=== PATIENT | female | born 1940 | race Asian ===

== ENCOUNTER 2025-04-16 08:30 | Emergency (ER) | payer MEDICARE, OTHER ==
[~2025-04-16] VITALS: Ht 149.9 cm; Wt 36.9 kg
--- NOTE | 2025-04-16 08:50 | ED.PDOC ---
History of Present Illness(SKN HPI Comments A 84 YEAR OLD FEMALE PRESENTS TO THE ED WITH COMPLAINT OF INSECT BITE OF RIGHT FOOT. PATIENT STATES SHE WAS IN HER YARD 1 WEEK AGO AND SHE WAS BITTEN BY AN INSECT ON HER RIGHT FOOT. PATIENT REPORTS SHE IS NOW EXPERIENCING INCREASED PAIN, REDNESS, AND MILD SWELLING TO HER RIGHT FOOT. PATIENT DENIES FEVER, C HILLS, SHORTNESS OF BREATH, CHEST PAIN, ABDOMINAL PAIN, NAUSEA, VOMITING, HEADACHE, OR OTHER COMPLAINTS. NO OTHER SYMPTOMS OR MODIFYING FACTORS AT THIS TIME. PATIENT IS ALERT, ORIENTED X 4, AND HAS STEADY GAIT. Chief Complaint: Wound Check Time Seen by MD: 08:34 History of Present Illness: Nurses Notes, Medications, Allergies Allergies: Coded Allergies: NO KNOWN ALLERGIES (Unverified , 04/16/25) Home Meds Active Scripts Cephalexin Monohydrate (Cephalexin) 500 Mg Cap, 1 CAP PO TID, #21 CAP Prov:MENDY BURGOS 04/16/25 Information Source: Patient Mode of Arrival: Ambulatory Severity: Moderate Timing: Days Duration: Since onset, Days Prehospital treatment: None Location: Foot (RIGHT FOOT) Mechanism: Insect Occurence: Outdoors Object: None Condition of Object: None Retained Foreign Body: No Wound Type: Other (INSECT BITE) Immunization Status of Animal: NA Tetanus: Unknown History of: None Associated Signs and Symptoms: Redness, Swelling, Pain Past Medical History PAST MEDICAL HISTORY: Denies Surgical History: Denies all surgeries RESPIRATORY TECH History: No Pertinent RESPIRATORY TECH History Family History Family History: Reviewed,noncontributory to illness Social History Smoker: Non-Smoker Alcohol: Denies ETOH Use Drugs: Denies Drug Use Lives In: Home Constitutional: denies: chills, diaphoresis, fatigue, fever, malaise, sweats, weakness, others EENTM: denies: blurred vision, double vision, ear bleeding, ear discharge, ear drainage, ear pain, ear ringing, eye pain, eye redness, hearing loss, mouth pain, mouth swelling, nasal discharge, nose bleeding, nose congestion, nose pain, photophobia, tearing, throat pain, throat swelling, voice changes, others Respiratory: denies: cough, hemoptysis, orthopnea, SOB at rest, shortness of breath, SOB with excertion, stridor, wheezing, others Cardiovascular: denies: chest pain, dizzy spells, diaphoresis, Dyspnea on exertion, edema, irregular heart beat, left arm pain, lightheadedness, palpitations, PND, syncope, others Gastrointestinal: denies: abdomen distended, abdominal pain, blood streaked bowels, constipated, diarrhea, dysphagia, difficulty swallowing, hematemesis, melena, nausea, poor appetite, poor fluid intake, rectal bleeding, rectal pain, vomiting, others Genitourinary: denies: abnormal vagina bleeding, burning, dyspareunia, dysuria, flank pain, frequency, hematuria, incontinence, pain, , vagina discharge, urgency, others Neurological: denies: dizziness, fainting, headache, left sided numbness, left sided weakness, numbness, paresthesia, pre-existing deficit, right sided numbness, right sided weakness, seizure, speech problems, tingling, tremors, weakness, others Musculoskeletal: denies: back pain, gout, joint pain, joint swelling, muscle pain, muscle stiffness, neck pain, others Integumetry: reports: lesions, wounds, others (INSECT BITE OF RIGHT FOOT); denies: bruises, change in color, change in hair/nails, dryness, laceration, lumps, rash Allergic/Immunocompromised: denies: Difficulty Healing, Frequent Infections, Hives, Itching, others Hematologic/Lymphatic: denies: anemia, blood clots, easy bleeding, easy bruising, swollen glands, others Endocrine: denies: excessive hunger, excessive sweating, excessive thirst, excessive urination, flushing, intolerance to cold, intolerance to heat, unexplained weight gain, unexplained weight loss, others Psychiatric: denies: anxiety, bipolar disorder, depression, hopeless, panic disorder, schizophrenia, sleepless, suicidal, others All Other Systems: Reviewed and Negative Physical Exam General Appearance: No Apparent Distress, Normal HEENT: Normal ENT Inspection, PERRL/EOMI, Pharynx Normal, TMs Normal Neck: Full Range of Motion, Non-Tender, Normal, Normal Inspection Respiratory: Chest Non-Tender, Lungs Clear, No Accessory Muscle Use, No Respiratory Distress, Normal Breath Sounds Cardiovascular: No Edema, No JVD, No Murmur, No Gallop, Normal Peripheral Pulses, Regular Rate/Rhythm Breast Exam: Deferred Gastrointestinal: No Organomegaly, Non Tender, No Pulsatile Mass, Normal Bowel Sounds, Soft Genitalia: Deferred Pelvic: Deferred Rectal: Deferred Extremities: No calf tenderness, Normal capillary refill, Normal range of motion, No pedal edema, Tender (WITH A BLISTER ON RIGHT INNER LOWER LEG, NO PUS DRAINAGE. ) Musculoskeletal : Apperance: Normal Neurologic: Alert, gun number II-XII nml as Tested, No Motor Deficits, Normal Affect, Normal Mood, No Sensory Deficits Cerebellar Function: Normal Reflexes: Normal Skin: Dry, Warm, Wounds (A BLISTER WOUND WITH LOCALIZED REDNESS AND TENDERNESS ON RIGHT INNER LOWER LEG, NO PUS DRAINAGE. ) Peripheral Pulses: 2+ carotid (R), 2+ carotid (L), 2+ dorsalis pedis (R), 2+ dorsalis pedis (L) Lymphatic: No Adenopathy Was a procedure done? Was a procedure done?: No Differential Diagnosis (INTG) Differential Diagnosis: Abrasion, Cellulitis, Contusion, Insect Envenomation, Puncture Wound Differential Diagnosis: N/A Differential Diagnosis: N/A Abscess: N/A Differential Diagnosis: N/A X-Ray, Labs, Meds, VS Vital Signs Date Time Temp Pulse Resp B/P (MAP) Pulse Ox O2 Delivery O2 Flow Rate FiO2 04/16/25 08:32 98.8 90 18 98 98.8 X-Ray, Labs, Meds, VS Comment EXTERNAL MEDICAL RECORDS REVIEWED: [NONE] INDEPENDENT HISTORIANS: [NONE] SOCIAL DETERMINANTS OF HEALTH: [NONE] LABS ORDERED: NONE REVIEWED AND INTERPRETED RESULTS: NONE IMAGING ORDERED: NONE TREATMENTS ORDERED: SKIN FROM PATIENT'S BLISTER ON HER RIGHT FOOT WAS REMOVED AND THEN THE WOUND WAS CLEANED USING NORMAL SALINE AND WRAPPED WITH STERILE GAUZE. PATIENT TOLERATED WELL. PROCEDURES PERFORMED: NONE CRITICAL CARE TIME: NONE I HAVE DISCUSSED THE PATIENT WITH THE ATTENDING PHYSICIAN DR. ARANA AND HE AGREES WITH THE PATIENT'S PLAN OF CARE AND DISPOSITION. BASED ON HISTORY OF PRESENT ILLNESS, AND PHYSICAL EXAM, PATIENT WILL BE DISCHARGED HOME. DISCUSSED PLAN FOR DISCHARGE HOME WITH RX [KEFLEX]. MEDICATION WARNINGS GIVEN. SHARED DECISION MAKING: DISCUSSED WITH PATIENT THAT THEIR WORKUP WAS NORMAL. PATIENT INSTRUCTED TO FOLLOW UP WITH PRIMARY CARE PROVIDER IN 1-2 DAYS FOR RE- EVALUATION OF SYMPTOMS. PATIENT VERBALIZES UNDERSTANDING TO RETURN TO ED FOR NEW OR WORSENING SYMPTOMS OR IF FOLLOW UP WITH PCP CANNOT BE OBTAINED. PATIENT FEELS COMFORTABLE GOING HOME AT THIS TIME. ALL QUESTIONS ADDRESSED AT TIME OF DISCHARGE. Time of 1ST Reevaluation: 09:10 Reevaluation 1ST: Improved Patient Education/Counseling: Diagnosis, Treatment, Need For Follow Up Family Education/Counseling: Diagnosis, Treatment, Need For Follow Up Medical Screening: No EMC Exist At This Time SEPSIS Sepsis Screen Date sepsis recognized/suspect: Apr 16, 2025 Time Sepsis recognized/suspect: 0835 Recent Procedure: No On Antibiotic Therapy: No Respiratory Rate >20: No Heart Rate >90: No Temp<36 C (96.8 F) or >38.3 C: No SBP <90 or MAP <65 mmHG: No New Acute Mental Status Change: No Is the patient on CPAP, BIPAP,: No Vital Signs Date Time Temp Pulse Resp B/P (MAP) Pulse Ox O2 Delivery O2 Flow Rate FiO2 04/16/25 08:32 98.8 90 18 98 98.8 Departure 1 Departure Time of Disposition: 09:10 Impression: Primary Impression: Insect bite (nonvenomous), right foot, initial encounter Disposition: HOME / SELF CARE / HOMELESS Condition: Stable Additional Instructions: FOLLOW-UP WITH PCP IN 1 TO 2 DAYS. TAKE MEDICATIONS PRESCRIBED. RETURN TO ED FOR ANY NEW OR WORSENING SYMPTOMS. e-Prescriptions Cephalexin Monohydrate (Cephalexin) 500 Mg Cap 1 CAP PO TID, #21 CAP Prov: MENDY BURGOS 04/16/25 Discharged With: Self Critical Care Note Critical Care Time?: No Stability Stability form required: No I personally scribed for MENDY BURGOS ([email or web address]) on 04/16/25 at 08:50. Electronically submitted by Arjun Holloway ([email or web address]). MENDY BURGOS Apr 16, 2025 08:50
[2025-04-16] MEDS ORDERED: CEPH500C PO (08:54)
[2025-04-16 09:01] VITALS: BP 178/75; PULSE 90; RESP 18; TEMP 98.8; O2SAT 98
== END 2025-04-16 09:04 | disposition home or self-care (01) ==
LOC: ER 08:30
DX: S90.861A Insect bite (nonvenomous), right foot, initial encounter (principal); W57.XXXA Bitten or stung by nonvenomous insect and other nonvenomous arthropods, initial encounter; Y93.89 Activity, other specified; Y92.89 Other specified places as the place of occurrence of the external cause; Y99.8 Other external cause status

== ENCOUNTER 2025-07-18 14:29 | Emergency (ER) | payer MEDICARE, OTHER ==
[~2025-07-18] VITALS: Ht 154.9 cm; Wt 68.0 kg
[~2025-07-18 14:29] MED LIST: CEPH500C PO
--- NOTE | 2025-07-18 16:15 | ED.PDOC ---
History of Present Illness HPI Comments 84 y/o M, CLAIR, presents to the ED for CC of flu-like symptoms. Patient states, she has been experiencing reoccurring flu-like symptoms including nasal congestion, sore-throat, and cough x1week. Patient reports, cough to be productive in nature. Patient denies fever, chills, nausea, or vomiting. No other symptoms or modifying factors are present at this time. Chief Complaint: Flu like Time Seen by MD: 16:00 Reviewed Notes: Nurses Notes, Medications, Allergies Allergies: Coded Allergies: NO KNOWN ALLERGIES (Unverified , 04/16/25) Home Meds Active Scripts Cephalexin Monohydrate (Cephalexin) 500 Mg Cap, 1 CAP PO TID, #21 CAP Prov:MENDY BURGOS 04/16/25 Information Source: Patient, Emergency Med Personnel Mode of Arrival: EMS Severity: Moderate Timing: Weeks Duration: Since onset Prehospital treatment: None Past Medical History PAST MEDICAL HISTORY: Denies Surgical History: Denies all surgeries HORSEBACK RIDING INSTRUCTOR History: No Pertinent HORSEBACK RIDING INSTRUCTOR History Family History Family History: Reviewed,noncontributory to illness Social History Smoker: Non-Smoker Alcohol: Denies ETOH Use Drugs: Denies Drug Use Lives In: Home Constitutional: denies: chills, diaphoresis, fatigue, fever, malaise, sweats, weakness, others EENTM: reports: nose congestion, throat pain; denies: blurred vision, double vision, ear bleeding, ear discharge, ear drainage, ear pain, ear ringing, eye pain, eye redness, hearing loss, mouth pain, mouth swelling, nasal discharge, nose bleeding, nose pain, photophobia, tearing, throat swelling, voice changes, others Respiratory: reports: cough; denies: hemoptysis, orthopnea, SOB at rest, shortness of breath, SOB with excertion, stridor, wheezing, others Cardiovascular: denies: chest pain, dizzy spells, diaphoresis, Dyspnea on exertion, edema, irregular heart beat, left arm pain, lightheadedness, palpitations, PND, syncope, others Gastrointestinal: denies: abdomen distended, abdominal pain, blood streaked bowels, constipated, diarrhea, dysphagia, difficulty swallowing, hematemesis, melena, nausea, poor appetite, poor fluid intake, rectal bleeding, rectal pain, vomiting, others Genitourinary: denies: abnormal vagina bleeding, burning, dyspareunia, dysuria, flank pain, frequency, hematuria, incontinence, pain, , vagina discharge, urgency, others Neurological: denies: dizziness, fainting, headache, left sided numbness, left sided weakness, numbness, paresthesia, pre-existing deficit, right sided numbness, right sided weakness, seizure, speech problems, tingling, tremors, weakness, others Musculoskeletal: denies: back pain, gout, joint pain, joint swelling, muscle pain, muscle stiffness, neck pain, others Integumetry: denies: bruises, change in color, change in hair/nails, dryness, laceration, lesions, lumps, rash, wounds, others Allergic/Immunocompromised: denies: Difficulty Healing, Frequent Infections, Hives, Itching, others Hematologic/Lymphatic: denies: anemia, blood clots, easy bleeding, easy bruising, swollen glands, others Endocrine: denies: excessive hunger, excessive sweating, excessive thirst, excessive urination, flushing, intolerance to cold, intolerance to heat, unexplained weight gain, unexplained weight loss, others Psychiatric: denies: anxiety, bipolar disorder, depression, hopeless, panic disorder, schizophrenia, sleepless, suicidal, others All Other Systems: Reviewed and Negative Physical Exam General Appearance: Moderate Distress HEENT: Normal ENT Inspection, Pharynx Normal, TMs Normal Neck: Full Range of Motion, Non-Tender, Normal, Normal Inspection Respiratory: Chest Non-Tender, Lungs Clear, No Accessory Muscle Use, No Respiratory Distress, Normal Breath Sounds Cardiovascular: No Edema, No JVD, No Murmur, No Gallop, Normal Peripheral Pulses, Regular Rate/Rhythm Breast Exam: Deferred Gastrointestinal: No Organomegaly, Non Tender, No Pulsatile Mass, Normal Bowel Sounds, Soft Genitalia: Deferred Pelvic: Deferred Rectal: Deferred Extremities: No calf tenderness, Normal capillary refill, Normal inspection, Normal range of motion, Non-tender, No pedal edema Musculoskeletal : Apperance: Normal Neurologic: Alert, mill operator helper II-XII nml as Tested, No Motor Deficits, Normal Affect, Normal Mood, No Sensory Deficits Cerebellar Function: NOT DONE Reflexes: NOT DONE Skin: Dry, Normal Color, Warm Peripheral Pulses: 3+ Radial (R), 3+ Radial (L) Lymphatic: No Adenopathy Was a procedure done? Was a procedure done?: No Differential Dx Considerations may include: URI, VIRAL SYNDROME, COVID-19, PNEUMONIA X-Ray, Labs, Meds, VS Vital Signs Date Time Temp Pulse Resp B/P (MAP) Pulse Ox O2 Delivery O2 Flow Rate FiO2 07/18/25 14:29 97.4 85 15 160/89 100 97.4 Lab Test 07/18/25 16:23 Range/Units White Blood Count 17.7 H 4.4-10.8 10^3/uL Red Blood Count 4.39 4.0-5.20 10^6/uL Hemoglobin 13.8 12.2-16.2 g/dL Hematocrit 43.4 36.0-46.0 % Mean Corpuscular Volume 98.7 80.0-100.0 fL Mean Corpuscular Hemoglobin 31.4 28.0-32.0 pg Mean Corpuscular Hemoglobin Concent 31.8 L 32.0-36.0 g/dL Red Cell Distribution Width 15.3 H 11.8-14.3 % Platelet Count 296 140-450 10^3/uL Mean Platelet Volume 7.4 6.9-10.8 fL Neutrophils (%) (Auto) 38.0 37.0-80.0 % Lymphocytes (%) (Auto) 7.2 L 10.0-50.0 % Monocytes (%) (Auto) 5.6 0.0-12.0 % Eosinophils (%) (Auto) 49.1 H 0.0-7.0 % Basophils (%) (Auto) 0.1 0.0-2.0 % Neutrophils # (Auto) 6.7 1.6-8.6 10 ^3/uL Lymphocytes # (Auto) 1.3 0.4-5.4 10 ^3/uL Monocytes # (Auto) 1.0 0-1.3 10 ^3/uL Eosinophils # (Auto) 8.7 H 0-0.8 10 ^3/uL Basophils # (Auto) 0 0-0.2 10 ^3/uL Nucleated Red Blood Cells 0.0 % Sodium Level 143 136-145 mmol/L Potassium Level 4.5 3.5-5.1 mmol/L Chloride Level 107 98-107 mmol/L Carbon Dioxide Level 17 L 20-31 mmol/L Anion Gap 19 H 5-15 Blood Urea Nitrogen 20 9-23 mg/dL Creatinine 0.88 0.550-1.02 mg/dL Glomerular Filtration Rate Calc 65 >90 mL/min BUN/Creatinine Ratio 22.7 H 10.0-20.0 Serum Glucose 72 L 74-106 mg/dL Calcium Level 9.6 8.7-10.4 mg/dL [facility] [id number] [place] [id number] Ph: [phone] DIAGNOSTIC IMAGING Diagnostic Imaging Report : [id number] Signed PATIENT: DALIA REED ACCT: [id number] UNIT: [id number] : 1940 LOC: ER ROOM / BED: / AGE / SEX: 84 / F ADM STATUS: REG ER SERVICE 04 ORDERING PHYSICIAN: CORRIE ARANA MD PROCEDURE(s): CXRP - CHEST PORTABLE REASON: sob ORDER NUMBER(s): [id number], ACCESSION NUMBER(s): [id number] CHEST RADIOGRAPH Indication: sob Technique: Single frontal view of the chest was obtained Comparison: None FINDINGS: Lines and Tubes: None Lungs: Left mid and lower lung zone opacification with obscuration of the left hemidiaphragm. Hyperinflation of the lungs with diffuse interstitial prominence. Nonspecific 11 mm metallic density overlying the left mid lung zone. No pneumothorax. Cardiomediastinal contours: Unremarkable Bones: No acute osseous abnormality. IMPRESSION: Hyperinflation of the lungs with diffuse interstitial prominence which may be from emphysematous changes. Moderate to large left-sided pleural effusion with associated atelectasis. Nonspecific 11 mm metallic density overlying the left mid lung zone which may be external to the patient. Recommend clinical correlation. Patient alert. No sign of distress. Vitals stable. Answering questions. Chest x-ray reviewed COPD. Saturation pristine on room air. Heart rate within normal limits. Was given prescription of Levaquin antibiotic. Was told to follow up at [facility]. No sepsis. Explained to the patient. Was told to follow up with her primary care physician. Was told to come back if there is any problem. Time of 1ST Reevaluation: 16:30 Reevaluation 1ST: Improved Patient Education/Counseling: Diagnosis, Treatment Family Education/Counseling: No Family Present SEPSIS Sepsis Screen Date sepsis recognized/suspect: Jul 18, 2025 Time Sepsis recognized/suspect: 1229 Recent Procedure: No On Antibiotic Therapy: No Respiratory Rate >20: No Heart Rate >90: No Temp<36 C (96.8 F) or >38.3 C: No SBP <90 or MAP <65 mmHG: No New Acute Mental Status Change: No Is the patient on CPAP, BIPAP,: No Physician Orders Chest Portable (07/18/25 16:05) Urinalysis (07/18/25 16:05) Vital Signs Date Time Temp Pulse Resp B/P (MAP) Pulse Ox O2 Delivery O2 Flow Rate FiO2 07/18/25 14:29 97.4 85 15 160/89 100 97.4 Laboratory Tests Test 07/18/25 16:23 White Blood Count 17.7 10^3/uL (4.4-10.8) H Departure 1 Departure Time of Disposition: 17:23 Impression: Primary Impression: Pneumonitis Disposition: 30 STILL A PATIENT Condition: Good e-Prescriptions Levofloxacin Hemihydrate (LEVOFLOXACIN) 500 Mg Tab 500 MG PO DAILY for 10 Days, #10 MG Prov: CORRIE ARANA MD 07/18/25 Discharged With: Self Critical Care Note Critical Care Time?: No Stability Stability form required: No Heart Score Heart Score: Heart Score Response (Comments) Value History N/A 0 EKG N/A 0 Age N/A 0 Risk Factors N/A 0 Troponin N/A 0 Total 0 I personally scribed for CORRIE ARANA MD ([email or web address]) on 07/18/25 at 16:15. Electronically submitted by Elaina Kulkarni [email or web address]). I personally scribed for CORRIE ARANA MD ([email or web address]) on 07/18/25 at 16:22. Electronically submitted by Elaina Kulkarni ([email or web address]). I personally scribed for CORRIE ARANA MD ([email or web address]) on 07/18/25 at 17:14. Electronically submitted by Stormy Malik ([email or web address]). CORRIE ARANA MD Jul 18, 2025 16:15
[2025-07-18 16:38] LABS: Hematocrit 43.4 % (36.0-46.0); Hemoglobin 13.8 g/dL (12.2-16.2); Mean Corpuscular Hemoglobin 31.4 pg (28.0-32.0); Mean Corpuscular Volume 98.7 fL (80.0-100.0); Nucleated Red Blood Cells % 0.0 %
[2025-07-18 16:46] LABS: Chloride 107 mmol/L (98-107); Potassium 4.5 mmol/L (3.5-5.1); Sodium 143 mmol/L (136-145)
[2025-07-18 16:47] LABS: Anion Gap 19 (5-15); Calcium 9.6 mg/dL (8.7-10.4)
[2025-07-18 16:52] LABS: BUN/Creatinine Ratio 22.7 (10.0-20.0); Blood Urea Nitrogen 20 mg/dL (9-23)
[2025-07-18 16:53] LABS: Carbon Dioxide 17 mmol/L (20-31); Glucose 72 mg/dL (74-106)
--- NOTE | 2025-07-18 16:58 | DVH ---
CHEST RADIOGRAPH Indication: sob Technique: Single frontal view of the chest was obtained Comparison: None FINDINGS: Lines and Tubes: None Lungs: Left mid and lower lung zone opacification with obscuration of the left hemidiaphragm. Hyperinflation of the lungs with diffuse interstitial prominence. Nonspecific 11 mm metallic density overlying the left mid lung zone. No pneumothorax. Cardiomediastinal contours: Unremarkable Bones: No acute osseous abnormality. IMPRESSION: Hyperinflation of the lungs with diffuse interstitial prominence which may be from emphysematous changes. Moderate to large left-sided pleural effusion with associated atelectasis. Nonspecific 11 mm metallic density overlying the left mid lung zone which may be external to the patient. Recommend clinical correlation.
[2025-07-18] MEDS ORDERED: LEVO500T91 PO (17:24)
[2025-07-18] MEDS ORDERED: cefTRIAXone W LIDOCAINE 1 GM IM IM ONE (17:30)
[2025-07-18] MEDS: LIDOCAINE 1% HCL (LOCAL ANESTH.) INJ 20ML MDV IJ ONE (18:43)
[2025-07-18] MEDS: cefTRIAXone SOD 1,000 MG VL IM ONE (18:43)
[2025-07-18 18:58] VITALS: BP 152/80; PULSE 80; TEMP 98
[2025-07-18 18:59] VITALS: RESP 16; O2SAT 96
--- NOTE | 2025-07-18 19:15 | DVHDS2 ---
Discharge Summary Date of Admission Date of Discharge: Jul 18, 2025 Labs/Diagnostic Data: Laboratory Results Test 07/18/25 16:23 White Blood Count 17.7 10^3/uL (4.4-10.8) Red Blood Count 4.39 10^6/uL (4.0-5.20) Hemoglobin 13.8 g/dL (12.2-16.2) Hematocrit 43.4 % (36.0-46.0) Mean Corpuscular Volume 98.7 fL (80.0-100.0) Mean Corpuscular Hemoglobin 31.4 pg (28.0-32.0) Mean Corpuscular Hemoglobin Concent 31.8 g/dL (32.0-36.0) Red Cell Distribution Width 15.3 % (11.8-14.3) Platelet Count 296 10^3/uL (140-450) Mean Platelet Volume 7.4 fL (6.9-10.8) Neutrophils (%) (Auto) 38.0 % (37.0-80.0) Lymphocytes (%) (Auto) 7.2 % (10.0-50.0) Monocytes (%) (Auto) 5.6 % (0.0-12.0) Eosinophils (%) (Auto) 49.1 % (0.0-7.0) Basophils (%) (Auto) 0.1 % (0.0-2.0) Neutrophils # (Auto) 6.7 10 ^3/uL (1.6-8.6) Lymphocytes # (Auto) 1.3 10 ^3/uL (0.4-5.4) Monocytes # (Auto) 1.0 10 ^3/uL (0-1.3) Eosinophils # (Auto) 8.7 10 ^3/uL (0-0.8) Basophils # (Auto) 0 10 ^3/uL (0-0.2) Nucleated Red Blood Cells 0.0 % Sodium Level 143 mmol/L (136-145) Potassium Level 4.5 mmol/L (3.5-5.1) Chloride Level 107 mmol/L (98-107) Carbon Dioxide Level 17 mmol/L (20-31) Anion Gap 19 (5-15) Blood Urea Nitrogen 20 mg/dL (9-23) Creatinine 0.88 mg/dL (0.550-1.02) Glomerular Filtration Rate Calc 65 mL/min (>90) BUN/Creatinine Ratio 22.7 (10.0-20.0) Serum Glucose 72 mg/dL (74-106) Calcium Level 9.6 mg/dL (8.7-10.4) Other Laboratory Tests 07/18/25 16:23 Brief Hx & Hospital Course: Patient is an 84-year-old female who presented with complaints of nasal congestion, sore throat and productive cough for the past week. Patient notes lack of improvement in her symptoms. On arrival, vitals were notable for blood pressure of 160/89. Pulse ox was 100% no tachycardia was noted and respiratory rate was within normal limits. Patient was afebrile. CBC was done which showed leukocytosis of 17.7 and BMP was done which was notable for serum bicarbonate of 17 with anion gap of 19. Renal function within normal limits. Chest x-ray was done which was notable for hyperinflation of the lungs with diffuse interstitial prominence which may be from emphysematous changes. There was a moderate to large left-sided pleural effusion with associated atelectasis. Again, no signs of respiratory distress were noted or reported. Patient was treated with ceftriaxone 1 g IM. She was discharged on levofloxacin. Plan of care was discussed with pulmonary who agreed to perform a thoracentesis outpatient the following day in clinic. This was discussed with [facility] case management who will arrange coordination. Patient was given ER return precautions. Overall, patient discharged in stable condition. Condition at Discharge: Good Final Diagnosis/Problems List Left Pleural Effusion Secondary Diagnosis: Pneumonitis Hypertension Discharge Disposition: Home Discharge Instruct/Medications Diet: Cardiac 2g Na,low cholest Activity: Light activity Follow Up/Referral: Follow up with Dr. Peterson on 07/19 at 1PM at his office for left sided thoracentesis to drain fluid from lung. Address: [address] [place] [address] Medications: Take levofloxacin as prescribed. Scheduled Cephalexin Monohydrate (Cephalexin), 1 CAP PO TID Levofloxacin Hemihydrate (Levofloxacin), 500 MG PO DAILY Discharge Statement: "Patient was advised to return to the ER or call 911 if any headaches, dizziness, shortness of breath, chest pain, abdominal pain, bleeding, fevers, or worsening of medical condition. Patient was counseled about treatment plan, medications, possible side effects, patientverbalized understanding. All questions were answered to the best of my ability. This discharge took greater then 30 minutes in planning, reviewing documentation, counseling the patient, and discussing with other team members." ASSESSMENT ASSESSMENT Assessment Left Pleural Effusion ALBERTO TATE DO Jul 18, 2025 19:15
== END 2025-07-18 19:04 | disposition home or self-care (01) ==
LOC: ER 14:29 → EDBD 14:29 → ER 19:00
DX: J98.4 Other disorders of lung (principal); Z79.899 Other long term (current) drug therapy
CPT/HCPCS: 36415; 71045; 80048; 85025; 96372; 99284; J0696; J2003

== ENCOUNTER 2025-07-18 21:05 | Inpatient (IN) | payer OTHER ==
[~2025-07-18] VITALS: Ht 149.9 cm; Wt 41.9 kg
[~2025-07-18 21:05] MED LIST changes: +LEVO500T91 PO
--- NOTE | 2025-07-18 22:08 | ED.PDOC ---
History of Present Illness HPI Comments 84-year-old female is brought in by ambulance with chief complaint of right hip and leg pain, with deformity to right leg, status post mechanical, ground level fall and injury. No reported prior symptoms, loss of consciousness, or additional injuries sustained. Patient was reported to have been discharge from ED, earlier, today, with pneumonitis diagnosis. Chief Complaint: Fall Injury Time Seen by MD: 21:45 Reviewed Notes: Nurses Notes, Package Handler Notes, Medications, Allergies Allergies: Coded Allergies: NO KNOWN ALLERGIES (Unverified , 04/16/25) Home Meds Active Scripts Levofloxacin Hemihydrate (LEVOFLOXACIN) 500 Mg Tab, 500 MG PO DAILY for 10 Days, #10 MG Prov:CORRIE ARANA MD 07/18/25 Cephalexin Monohydrate (Cephalexin) 500 Mg Cap, 1 CAP PO TID, #21 CAP Prov:MENDY BURGOS 04/16/25 Information Source: Patient, Emergency Med Personnel Mode of Arrival: EMS Severity: Moderate Timing: Hours Duration: Since onset Prehospital treatment: 12 Lead EKG, Script Worker Past Medical History Past Medical History (Other): Pneumonia Surgical History: Denies all surgeries BARREL DRUM CUTTER History: No Pertinent BARREL DRUM CUTTER History Family History Family History: Reviewed,noncontributory to illness Social History Smoker: Non-Smoker Alcohol: Denies ETOH Use Drugs: Denies Drug Use Lives In: Home All Other Systems: Reviewed and Negative (Comprehensive review of systems are negative unless otherwise stated in HPI) Physical Exam General Appearance: No Apparent Distress, Normal HEENT: Normal ENT Inspection, Pharynx Normal, TMs Normal Neck: Full Range of Motion, Non-Tender, Normal, Normal Inspection Respiratory: Chest Non-Tender, Lungs Clear, No Accessory Muscle Use, No Respiratory Distress, Normal Breath Sounds Cardiovascular: No Edema, No JVD, No Murmur, No Gallop, Normal Peripheral Pulses, Regular Rate/Rhythm Breast Exam: Deferred Gastrointestinal: No Organomegaly, Non Tender, No Pulsatile Mass, Normal Bowel Sounds, Soft Genitalia: Deferred Pelvic: Deferred Rectal: Deferred Extremities: Normal capillary refill, No pedal edema, Tender (Right lower extremity and hip), Other (Right lower extremity shortening) Musculoskeletal : Apperance: Normal Neurologic: Alert, type copy examiner II-XII nml as Tested, No Motor Deficits, Normal Affect, Normal Mood, No Sensory Deficits Cerebellar Function: Normal Reflexes: Normal Skin: Dry, Normal Color, Warm Lymphatic: No Adenopathy Was a procedure done? Was a procedure done?: No Differential Dx Considerations may include: Fractures, contusions, sprain, dislocation, strain, neurovascular injury, among others X-Ray, Labs, Meds, VS Vital Signs Date Time Temp Pulse Resp B/P (MAP) Pulse Ox O2 Delivery O2 Flow Rate FiO2 07/18/25 22:30 87 07/18/25 21:10 97.5 99 20 197/94 97 97.5 Lab Test 07/18/25 22:02 Range/Units White Blood Count 15.6 H 4.4-10.8 10^3/uL Red Blood Count 4.05 4.0-5.20 10^6/uL Hemoglobin 12.7 12.2-16.2 g/dL Hematocrit 38.4 # 36.0-46.0 % Mean Corpuscular Volume 94.8 80.0-100.0 fL Mean Corpuscular Hemoglobin 31.3 28.0-32.0 pg Mean Corpuscular Hemoglobin Concent 33.0 32.0-36.0 g/dL Red Cell Distribution Width 15.2 H 11.8-14.3 % Platelet Count 299 140-450 10^3/uL Mean Platelet Volume 7.7 6.9-10.8 fL Neutrophils (%) (Auto) 37.0-80.0 % Lymphocytes (%) (Auto) 10.0-50.0 % Monocytes (%) (Auto) 0.0-12.0 % Eosinophils (%) (Auto) 0.0-7.0 % Basophils (%) (Auto) 0.0-2.0 % Neutrophils # (Auto) 1.6-8.6 10 ^3/uL Lymphocytes # (Auto) 0.4-5.4 10 ^3/uL Monocytes # (Auto) 0-1.3 10 ^3/uL Differential Total Cells Counted Pending Neutrophils % (Manual) Pending Band Neutrophils % (Manual) Pending Lymphocytes % (Manual) Pending Monocytes % (Manual) Pending Eosinophils % (Manual) Pending Basophils % (Manual) Pending Metamyelocytes % (manual) Pending Myelocytes % (Manual) Pending Promyelocytes % (Manual) Pending Blast Cells % (Manual) Pending Reactive Lymphocytes Pending Platelet Estimate Pending Prothrombin Time 11.2 9.3-11.8 sec Prothrombin Time INR 1.06 0.9-1.15 Activated Partial Thromboplast Time 26.2 24.5-34.5 SEC Sodium Level 142 136-145 mmol/L Potassium Level 3.9 3.5-5.1 mmol/L Chloride Level 105 98-107 mmol/L Carbon Dioxide Level 18 L 20-31 mmol/L Anion Gap 19 H 5-15 Blood Urea Nitrogen 16 9-23 mg/dL Creatinine 0.86 0.550-1.02 mg/dL Glomerular Filtration Rate Calc 67 >90 mL/min BUN/Creatinine Ratio 18.6 10.0-20.0 Serum Glucose 66 L 74-106 mg/dL Calcium Level 9.3 8.7-10.4 mg/dL Total Bilirubin 0.4 0.2-1.0 mg/dL Aspartate Amino Transferase (AST) 27 13-40 U/L Alanine Aminotransferase (ALT) 15 7-40 U/L Alkaline Phosphatase 72 46-116 U/L Total Protein 7.3 5.7-8.2 g/dL Albumin 3.5 3.2-4.8 g/dL Time of 1ST Reevaluation: 22:15 Reevaluation 1ST: Unchanged Patient Education/Counseling: Diagnosis, Treatment Family Education/Counseling: No Family Present SEPSIS Sepsis Screen Date sepsis recognized/suspect: Jul 18, 2025 Time Sepsis recognized/suspect: 2109 Recent Procedure: No On Antibiotic Therapy: No Respiratory Rate >20: No Heart Rate >90: No Temp<36 C (96.8 F) or >38.3 C: No SBP <90 or MAP <65 mmHG: No New Acute Mental Status Change: No Is the patient on CPAP, BIPAP,: No Physician Orders Complete Blood Count (07/18/25 21:49) Electrocardigram (07/18/25 21:49) Chest Xray 1 View (07/18/25 21:49) R Hip Complete Xray (07/18/25 21:49) Head Without Contrast (07/18/25 21:49) Manual Differential (07/18/25 22:02) Vital Signs Date Time Temp Pulse Resp B/P (MAP) Pulse Ox O2 Delivery O2 Flow Rate FiO2 07/18/25 22:30 87 07/18/25 21:10 97.5 99 20 197/94 97 97.5 Laboratory Tests Test 07/18/25 22:02 White Blood Count 15.6 10^3/uL (4.4-10.8) H Departure 1 Departure Time of Disposition: 22:55 Impression: Primary Impression: Closed right hip fracture Additional Impression: Pleural effusion, left Disposition: 09 ADMITTED INPATIENT Admit to: Med Surg Condition: Guarded Comments 84-year-old female with a history of left pleural effusion now had a fall at home and has a closed right intertrochanteric hip fracture. Patient will need admission for supportive care and further workup and orthopedic consultation Critical Care Note Critical Care Time?: No Stability Stability form required: No Heart Score Heart Score: Heart Score Response (Comments) Value History N/A 0 EKG N/A 0 Age N/A 0 Risk Factors N/A 0 Troponin N/A 0 Total 0 I personally scribed for BON LARA MD ([email or web address]) on 07/18/25 at 22:08. Electronically submitted by Justin Soto [email or web address]). BON LARA MD Jul 18, 2025 22:08
[2025-07-18 22:31] LABS: Hematocrit 38.4 % (36.0-46.0); Hemoglobin 12.7 g/dL (12.2-16.2); Mean Corpuscular Hemoglobin 31.3 pg (28.0-32.0); Mean Corpuscular Volume 94.8 fL (80.0-100.0)
[2025-07-18 22:38] LABS: Alanine Aminotransferase 15 U/L (7-40); Albumin 3.5 g/dL (3.2-4.8); Alkaline Phosphatase 72 U/L (46-116); Anion Gap 19 (5-15); BUN/Creatinine Ratio 18.6 (10.0-20.0); Blood Urea Nitrogen 16 mg/dL (9-23); Calcium 9.3 mg/dL (8.7-10.4); Chloride 105 mmol/L (98-107); INR 1.06 (0.9-1.15); Partial Thromboplastin Time 26.2 SEC (24.5-34.5); Potassium 3.9 mmol/L (3.5-5.1); Prothrombin Time 11.2 sec (9.3-11.8); Sodium 142 mmol/L (136-145)
[2025-07-18 22:39] LABS: Bilirubin, Total 0.4 mg/dL (0.2-1.0)
[2025-07-18 22:41] LABS: Total Protein 7.3 g/dL (5.7-8.2)
[2025-07-18 22:45] LABS: Carbon Dioxide 18 mmol/L (20-31); Glucose 66 mg/dL (74-106)
--- NOTE | 2025-07-18 22:48 | DVH ---
CLINICAL INDICATION: fall injury fracture TECHNIQUE: XYXY R HIP COMPLETE XRAY Comparison: None FINDINGS/IMPRESSION: : Nondisplaced intertrochanteric proximal right femoral fracture with mild varus angulation. Hip joint is congruent.
--- NOTE | 2025-07-18 22:49 | DVH ---
CHEST RADIOGRAPH Indication: SOB Technique: Single frontal view of the chest was obtained COMPARISON: XY CHEST PORTABLE on DOS: 07/18/25 FINDINGS: Small left-sided pleural effusion, decreased from previous, with improved aeration of the left lower lung. Stable enlargement of the cardiac silhouette with diffuse prominence of the pulmonary vasculature. IMPRESSION: Significant interval decrease in size in the left-sided pleural effusion with improved aeration of the left lung. Ongoing pulmonary venous congestion.
--- NOTE | 2025-07-18 22:49 | DVH ---
EXAM: CT HEAD WITHOUT CONTRAST INDICATION: fall injury, pain TECHNIQUE: CT of the head without intravenous contrast. Radiation Dose Information: CT Dose: CTDI volume is 48.66 mGy. Dose-length product is 780.26 mGy*cm The dose indicators for CT are the volume Computed Tomography (CT) Dose Index (CTDIvol) and the Dose Length Product (DLP), and are measured in units of mGy and mGy-cm, respectively. These indicators are not patient dose, but values generated from the CT scanner acquisition factors. The report includes radiation exposure data for exposures received during this examination. COMPARISON: None FINDINGS: There is no evidence of acute intracranial hemorrhage, extra-axial collection, mass effect, midline shift, herniation or hydrocephalus. The ventricles, sulci and cisterns are age appropriate. The forrest-white differentiation is intact. Patchy periventricular and subcortical white matter hypoattenuation is nonspecific but may be related to small vessel ischemic disease. The visualized paranasal sinuses and mastoid air cells are clear. The surrounding soft tissues and osseous structures are unremarkable. IMPRESSION: No acute intracranial abnormality.
[2025-07-18 23:13] LABS: Ovalocytes FEW; Total Cells Counted 100.0 (100)
[2025-07-19] VITALS (13 sets, daily range): BP systolic 107–130; BP diastolic 52–72; PULSE 82–120; RESP 12–19; TEMP 97.7–98.7; O2SAT 93–100
[2025-07-19] MEDS: MORPHINE SULFATE 4 MG/ML SYR/VIAL IV ONE (00:02)
[2025-07-19] MEDS: ONDANSETRON HCL 4 MG/2 ML VIAL IV ONE (00:03)
[2025-07-19] MEDS ORDERED: MORPHINE SULFATE INJ 2 MG/ml SYRG IV PRN (01:00)
[2025-07-19] MEDS ORDERED: NITROGLYCERIN 0.4 MG SL TAB SL PRN (01:00)
[2025-07-19] MEDS ORDERED: ONDANSETRON HCL 4 MG/2 ML VIAL IV PRN ×2 (01:00→14:45)
--- NOTE | 2025-07-19 01:31 | DVHHP2 ---
Admitting Diagnosis: right hip fracture History of Present Illness HPI 84 y.o. female without significant medical history was brought to the ER c/o right hip and right leg pain after sustaining a mechanical fall yesterday. Patient was seen earlier yesterday for flu-like symptoms and was discharged home to continue Abx therapy for PNA. Home Meds Active Scripts Levofloxacin Hemihydrate (LEVOFLOXACIN) 500 Mg Tab, 500 MG PO DAILY for 10 Days, #10 MG Prov:CORRIE ARANA MD 07/18/25 Cephalexin Monohydrate (Cephalexin) 500 Mg Cap, 1 CAP PO TID, #21 CAP Prov:MENDY BURGOS 04/16/25 Past Medical History Cardiac: CHF Review of Systems Constitutional: Malaise Ears, Nose, & Throat: Nose discharge Pulmonary/Respiratory: Cough Musculoskeletal: Leg pain H&P Exam Vital Signs Vital Signs Date Time Temp Pulse Resp B/P (MAP) Pulse Ox O2 Delivery O2 Flow Rate FiO2 07/19/25 00:47 96 14 138/72 07/18/25 22:00 94 07/18/25 21:10 97.5 97.5 General Appeara: Normal Appearance Head Exam: Normal inspection Neck Exam: Non-tender Eye Exam: bilateral eye PERRL, bilateral eye EOMI Pulmonary/Respiratory: Crackles Cardiovascular/Chest: Tachycardia Abdominal Exam: Normal bowel sounds, Soft Neuro/Mental St: Alert, Oriented SEPSIS Sepsis Screen Date sepsis recognized/suspect: Jul 18, 2025 Time Sepsis recognized/suspect: 2109 Recent Procedure: No On Antibiotic Therapy: No Respiratory Rate >20: No Heart Rate >90: No Temp<36 C (96.8 F) or >38.3 C: No SBP <90 or MAP <65 mmHG: No New Acute Mental Status Change: No Is the patient on CPAP, BIPAP,: No Physician Orders Electrocardigram (07/18/25 21:49) Chest Xray 1 View (07/18/25 21:49) R Hip Complete Xray (07/18/25 21:49) Head Without Contrast (07/18/25 21:49) Admit (07/19/25 00:48) * Cardiology Consult (07/19/25 00:48) Complete Blood Count (07/19/25 06:00) Comprehensive Metabolic Panel (07/19/25 06:00) Urinalysis (07/19/25 00:48) Echo 2d Mode Cardiac Dop (07/19/25 00:48) Nitroglycerin Sublingual (Ntrostat Subli (07/19/25 01:00) Morphine Sulfate Injection (07/19/25 01:00) Stat Ekg For Chest Pain (07/19/25 00:48) Notify Md Of Changes From Base (07/19/25 00:48) Power Saw Operator For 24 Hours (07/19/25 00:48) Emergency Dysrhythmia Protocol (07/19/25 00:48) Rhythm Strips Once Every Shift (07/19/25 00:48) Oxygen By Nasal Cannula (07/19/25 00:48) *Consult Dr. Rajendra Humphrey (07/19/25 00:48) Morphine Sulfate Injection (07/19/25 01:00) Ondansetron Hcl (Zofran) (07/19/25 01:00) Albuterol Medneb (Ventolin Medneb) (07/19/25 06:00) Ipratropium Medneb (Atrovent Medneb) (07/19/25 06:00) Ceftriaxone 1gm/50ml (Rocephin) (07/19/25 10:00) Vital Signs Date Time Temp Pulse Resp B/P (MAP) Pulse Ox O2 Delivery O2 Flow Rate FiO2 07/19/25 00:47 96 14 138/72 07/19/25 00:02 87 17 138/72 07/18/25 22:30 87 07/18/25 22:00 88 18 168/59 (95) 94 07/18/25 21:10 97.5 99 20 197/94 97 97.5 Laboratory Tests Test 07/18/25 22:02 White Blood Count 15.6 10^3/uL (4.4-10.8) H Medications Medications Dose Ordered Sig/Juan Route Start Time Stop Time Status Last Admin Dose Admin Morphine Sulfate 4 mg ONCE ONCE IV 07/18/25 23:45 07/18/25 23:46 DC 07/19/25 00:02 4 MG Ondansetron HCl 4 mg ONCE ONCE IV 07/18/25 23:45 07/18/25 23:46 DC 07/19/25 00:03 4 MG Labs/Xrays Labs Test 07/18/25 22:02 Range/Units White Blood Count 15.6 H 4.4-10.8 10^3/uL Red Blood Count 4.05 4.0-5.20 10^6/uL Hemoglobin 12.7 12.2-16.2 g/dL Hematocrit 38.4 # 36.0-46.0 % Mean Corpuscular Volume 94.8 80.0-100.0 fL Mean Corpuscular Hemoglobin 31.3 28.0-32.0 pg Mean Corpuscular Hemoglobin Concent 33.0 32.0-36.0 g/dL Red Cell Distribution Width 15.2 H 11.8-14.3 % Platelet Count 299 140-450 10^3/uL Mean Platelet Volume 7.7 6.9-10.8 fL Neutrophils (%) (Auto) 37.0-80.0 % Lymphocytes (%) (Auto) 10.0-50.0 % Monocytes (%) (Auto) 0.0-12.0 % Eosinophils (%) (Auto) 0.0-7.0 % Basophils (%) (Auto) 0.0-2.0 % Neutrophils # (Auto) 1.6-8.6 10 ^3/uL Lymphocytes # (Auto) 0.4-5.4 10 ^3/uL Monocytes # (Auto) 0-1.3 10 ^3/uL Differential Total Cells Counted 100.0 100 Neutrophils % (Manual) 35 L 37.0-80.0 Band Neutrophils % (Manual) 0 Lymphocytes % (Manual) 6 L 10.0-50.0 Monocytes % (Manual) 6 0-12 Eosinophils % (Manual) 53 H 0-7 Basophils % (Manual) 0 0.0-2.0 Metamyelocytes % (manual) 0 Myelocytes % (Manual) 0 Promyelocytes % (Manual) 0 Blast Cells % (Manual) 0 Reactive Lymphocytes 0 Platelet Estimate Adequate Poikilocytosis (manual) Slight Ovalocytes Few [place] Cells Few Prothrombin Time 11.2 9.3-11.8 sec Prothrombin Time INR 1.06 0.9-1.15 Activated Partial Thromboplast Time 26.2 24.5-34.5 SEC Sodium Level 142 136-145 mmol/L Potassium Level 3.9 3.5-5.1 mmol/L Chloride Level 105 98-107 mmol/L Carbon Dioxide Level 18 L 20-31 mmol/L Anion Gap 19 H 5-15 Blood Urea Nitrogen 16 9-23 mg/dL Creatinine 0.86 0.550-1.02 mg/dL Glomerular Filtration Rate Calc 67 >90 mL/min BUN/Creatinine Ratio 18.6 10.0-20.0 Serum Glucose 66 L 74-106 mg/dL Calcium Level 9.3 8.7-10.4 mg/dL Total Bilirubin 0.4 0.2-1.0 mg/dL Aspartate Amino Transferase (AST) 27 13-40 U/L Alanine Aminotransferase (ALT) 15 7-40 U/L Alkaline Phosphatase 72 46-116 U/L Total Protein 7.3 5.7-8.2 g/dL Albumin 3.5 3.2-4.8 g/dL Assessment/Plan Problem List: (1) Closed right hip fracture (2) PNA (pneumonia) (3) Pleural effusion, left Plan Bed rest, pain control, RT, Abx, ECHO, cardiology consult, ortho consult Plan discussed with: Patient MEGHNA MCLEAN MD Jul 19, 2025 01:31
[2025-07-19 05:11] LABS: Hematocrit 38.5 % (36.0-46.0); Hemoglobin 11.9 g/dL (12.2-16.2); Mean Corpuscular Hemoglobin 31.2 pg (28.0-32.0); Mean Corpuscular Volume 100.8 fL (80.0-100.0); Nucleated Red Blood Cells % 0.1 %
[2025-07-19 05:38] LABS: Alanine Aminotransferase 18 U/L (7-40); Albumin 3.3 g/dL (3.2-4.8); Alkaline Phosphatase 68 U/L (46-116); Anion Gap 20 (5-15); BUN/Creatinine Ratio 20.0 (10.0-20.0); Blood Urea Nitrogen 15 mg/dL (9-23); Calcium 9.1 mg/dL (8.7-10.4); Potassium 3.9 mmol/L (3.5-5.1); Sodium 142 mmol/L (136-145); Total Protein 7.0 g/dL (5.7-8.2)
[2025-07-19 05:39] LABS: Bilirubin, Total 0.4 mg/dL (0.2-1.0)
[2025-07-19 05:41] LABS: Carbon Dioxide 15 mmol/L (20-31); Chloride 107 mmol/L (98-107); Glucose 72 mg/dL (74-106)
[2025-07-19] MEDS: ALBUTEROL SULF 2.5 MG/0.5ML(0.5%) NEB SOLN NEB SCH (06:43)
[2025-07-19] MEDS: IPRATROPIUM BROM 0.5 MG/2.5ML INH SOL NEB SCH (06:43)
[2025-07-19 09:40] LABS: Base Excess -6.6 mmol/L (-2.0-3.0)
--- NOTE | 2025-07-19 10:41 | DVHSR ---
APPROVED REPORT EXAM: Two-dimensional and M-mode echocardiogram with Doppler and color Doppler. Blood Pressure: 172/135 mmHg INDICATION Pre-Op RISK FACTORS Height: 5', Weight: 130 DIMENSIONS LVDd 3.3 (3.8-5.7cm) LA (2D) 3.0 (1.9-4.0cm) Aortic Root (2.0-3.7cm) LVDs 1.9 (2.5-4.0cm) LA (MM) (1.9-4.0cm) Aortic Cusp Exc (1.5-2.0cm) EF (%) 73.0 (55-70%) Rt. Atrium (1.9-4.0cm) Asc. Aorta cm IVSd 0.8 (0.7-1.1cm) RV (D) (1.8-2.4cm) Mitral Valve Mitral Mitral Stenosis E wave 0.68m/s MV Mean GR. mmHg A wave 1.31m/s MV Peak GR. mmHg E/A ratio 0.5 2D MVA cm2 DECEL Time 138ms PRESS 1/2 Time ms Aortic Valve Aortic Valve Aortic Stenosis V1 m/s AO Mean GR. 128mmHg V2 7.63m/s AO Peak GR. 243mmHg Tricuspid Valve TR Velocity 3.01m/s RVSP 39mmHg Other Information Quality : Technically Limited Rhythm : Technically limited study due to body habitus and patient position. Conclusion limited difficult study lvef 75% hyperdynamic LV mild LVH noted normal rv function left atrium enlarged no significant aortic stenosis, HOWEVER THERE IS A LARGE INTRACAVITARY VS LVOT GRADIENT OF >130 MMHG, THIS CAN BE SEEN IN HOCM trace to mild mitral regurg L sided pleural effusion noted
[2025-07-19] MEDS: LORazepam 2MG/ML-1ML VIAL IV ONE (10:45)
[2025-07-19] MEDS: LABETALOL HCL 20 MG/4 ML VL IV ONE (10:51)
--- NOTE | 2025-07-19 11:26 | DVH ---
CLINICAL INFORMATION: Pleural effusion. TECHNIQUE: Axial CT imaging of the chest was performed without IV contrast. Sagittal and coronal reformatted images were made, stored and reviewed. Evaluation is limited without IV contrast. One or more of the following dose reduction techniques were used: Automated exposure control. Adjustment of mA and/or kV according to patient size. CTDIvol = 4.75 mGy DLP = 165.1 mGy-cm COMPARISON: XY CHEST XRAY 1 VIEW on DOS: 07/18/25, XY CHEST PORTABLE on DOS: 07/18/25 FINDINGS: Aorta: No aneurysm. Moderate atherosclerotic calcification. Cardiac: Heart size is within normal limits. No significant calcification. Mediastinum/valentino: No mass or adenopathy. Lungs: Moderate-sized left pleural effusion measuring up to 4.5. cm in AP dimension, 8.0 cm in transverse dimension, and up to 20 cm in craniocaudal dimension. Effusion volume based on the AP depth is approximately 572 mL. There is overlying atelectasis and/or consolidation in the left lower lobe. Scattered areas of subsegmental atelectasis are seen. Pulmonary arteries: Main pulmonary artery is mildly dilated, measuring up to 3.1 cm, may be seen with pulmonary arterial hypertension. Chest wall: Moderate inflammatory stranding is seen in the left chest wall, Breast, and axilla. Enlarged left axillary lymph node measures 2.1 x 1.2 cm, possibly reactive. Additional enlarged left axillary and subpectoral lymph nodes are seen. Upper abdomen: Motion artifact limits evaluation. Bones: No fracture or suspicious intraosseous lesions. Moderate dextroconvex curvature of the thoracic spine. IMPRESSION: 1. Moderate-sized left pleural effusion as described above, with overlying atelectasis and/or consolidation. 2. Moderate inflammatory stranding involving the left chest wall, breast, and axilla with enlarged left axillary lymph nodes. Correlation with clinical findings is needed. Findings may be infectious or inflammatory in nature. Other etiologies, including malignancy can not be excluded. 3. Mildly dilated main pulmonary artery, may be seen with pulmonary arterial hypertension. 4. Additional findings as described above.
[2025-07-19] MEDS: MORPHINE SULFATE 4 MG/ML SYR/VIAL ONE (12:09)
[2025-07-19] MEDS: MORPHINE SULFATE INJ 2 MG/ml SYRG IV PRN (12:10)
--- NOTE | 2025-07-19 12:28 | DVHINCON2 ---
Consult Note Consult Consult Note HISTORY OF PRESENT ILLNESS Nadir Cabello is an 84-year-old female who presented to the Emergency Department early this morning via EMS after a ground-level fall at home. GLF but is a poor historian. No family was present at bedside for collateral information. Patient lives alone. At the time of interview today, she remains confused, intermittently disoriented, and unable to provide detailed history. She reports right groin/hip pain, worsened with any attempted movement. Inability to ambulate at this time. Imaging obtained in the ER is consistent with a right hip fracture. Patient also has a recent history of pneumonia with associated pleural effusion, HOCM on Echo; she is scheduled for thoracentesis today. Cardiac preoperative clearance and is pending at this time. PAST MEDICAL HISTORY Pneumonia with pleural effusion Hypertension Other comorbidities: unable to obtain due to confusion No family present for additional history PHYSICAL EXAM General: Elderly female, confused, lying in bed due to pain. Respiratory: No labored breathing Musculoskeletal: Right hip: Significant tenderness to palpation over the right groin and proximal femur Pain with any attempted passive ROM of right leg Limb held in slight external rotation Unable to bear weight Neurovascular: Distal pulses palpable Sensation grossly intact distally Compartments soft IMAGING Right Hip X-ray:No dislocation.Nondisplaced intertrochanteric proximal right femoral fracture with mild varus angulation. Hip joint is congruent. Chest imaging: Prior films show pleural effusion consistent with pneumonia; thoracentesis planned. ASSESSMENT 84-year-old female with: 1. Right hip fracture mechanical fall, unable to bear weight 2. Confusion / poor historian possible delirium vs baseline dementia 3. Pneumonia with pleural effusion scheduled for thoracentesis 4. Preoperative cardiac evaluation pending (echocardiogram completed) 5. Lives alone, high fall risk PLAN 1. Surgical Management Patient is an appropriate surgical candidate for right hip intramedullary nail fixation (IM nail), pending medical/cardiac clearance. Orthopedics will proceed with surgery once cleared by cardiology and after thoracentesis as needed. Risks include but not excluisve to bleeding infection nerve injury hardware failure nonunion malunion chronic pain blood clots cardiac and pulmonary complications amputation and . I discussed the morbidity and mortality of hip fractures in the elderly. Patients family understands and wish to proceed with the surgery. 2. Medical Optimization Await cardiac clearance. Thoracentesis per medicine/pulmonology today. 3. Pain Control Multimodal pain regimen owe hospitalist 4. Activity / Weight Bearing [id number] on the right lower extremity. 5. DVT Prophylaxis Mechanical prophylaxis now. Chemical prophylaxis per hospitalist and timing relative to surgery. 6. Disposition Patient currently admitted to inpatient/ER service. Family contact needed for accurate history and postoperative planning; case management/ER/Hospitalist to assist. Plan discussed with: Patient, Other (bedside nurse) Visit Coding Surgery Date of Service if different f: Jul 19, 2025 Billing Provider: ELIZABETH LEMUS Surgery Visit Codes: 89910 - INP CONSULT <55 MIN ELIZABETH LEMUS Jul 19, 2025 12:28 DARIN PLATT MD Jul 19, 2025 13:46
--- NOTE | 2025-07-19 12:35 | DVHNC2 ---
Procedure - Ultrasound-guided LEFT thoracentesis procedure note: Physician: Dr Juanito Peterson Date: July 19, 2025 Time out time: 11:55 p.m. Relay Assembler LATASHA Evans Patient medications and allergies reviewed. The risks and benefits of the procedure and the sedation options and risk were discussed with the patient's healthcare proxy. All questions were answered and informed consent was obtained. Patient identification and proposed procedure were verified prior to the procedure by the physician, and a nurse in the patient's room. The heart rate, respiratory rate, oxygen saturations, blood pressure, adequacy of pulmonary ventilation, and response to care were monitored throughout the procedure. The physical status of the patient was reassessed after the procedure. Consent: Consent was obtained from patient prior to procedure. Indication, risks, and benefits were explained at length. Procedure summary: A time-out was performed and a chest x-ray was reviewed prior to procedure. The appropriate site was confirmed and marked. My hands were washed immediately prior to the procedure, I wore a surgical cap, mask with protective eyewear, sterile gown and sterile gloves throughout the procedure. The patient was prepped and draped in a sterile manner using chlorhexidine scrub after the appropriate level was percussed and confirmed by ultrasound. 1% lidocaine was used to anesthetize the skin, subcutaneous tissue, superior aspect of the rib periosteum and parietal pleura. A finder needle was then introduced over the superior aspect of the rib to locate the pleural fluid; Amanda fluid was aspirated. Thoracentesis needle was then introduced through the skin incision into the pleural space using negative aspiration pressure. The thoracentesis catheter was then threaded without difficulty. 450 mL's of AMANDA colored fluid were removed without difficulty. The catheter was then removed. No immediate complications were noted during the procedure. A post-procedure chest x-ray is pending at the time of this note. The pleural fluid will be sent for cultures and cytology. Estimated blood loss: less than 5 mL's. CPT: 21638 Visit Coding Pulmonary Billing Provider: KIRSTIN PETERSON MD Date of Service if different f: Jul 19, 2025 Common Visit Codes: PROCEDURE ONLY Procedure Codes: 80135-[id number]/PUNCT (39487 Left Thoracentesis) KIRSTIN PETERSON MD Jul 19, 2025 12:35
--- NOTE | 2025-07-19 12:58 | DVHINCON2 ---
Date of service: Jul 19, [address] Schroeder Reason for Consultation Left pleural effusion, moderate History of Present Illness 84-year-old woman history of pneumonia, left pleural effusion presented with right hip and leg pain. Deformity of the right leg status post mechanical, gr ound level fall and injury. Recently seen in the emergency department with notable chest x-ray for pleural effusion. No loss of consciousness. No additional injuries. Chest x-ray demonstrates moderate left pleural effusion. Pulmonary consultation is called due to acute respiratory failure and moderate left pleural effusion evaluation. Review of systems: 14 point review of systems negative unless otherwise noted above. Past medical history: Pneumonia Past surgical history: None mentioned in prior surgeries. Medications: Reviewed Allergies: No known drug allergies. Family history: No family history of premature CAD. No family history of lung disease. Social history: Nonsmoker. No alcohol or illicit drug use. Lives at home. Allergies: Coded Allergies: NO KNOWN ALLERGIES (Unverified , 04/16/25) Home Meds Active Scripts Levofloxacin Hemihydrate (LEVOFLOXACIN) 500 Mg Tab, 500 MG PO DAILY for 10 Days, #10 MG Prov:CORRIE ARANA MD 07/18/25 Cephalexin Monohydrate (Cephalexin) 500 Mg Cap, 1 CAP PO TID, #21 CAP Prov:MENDY BURGOS 04/16/25 Current Medications Current Medications Medications (Trade) Dose Ordered Sig/Juan Route PRN Reason Start Time Stop Time Status Last Admin Nitroglycerin (Ntrostat Sublingual) 0.4 mg Q5MINP PRN SL FOR CHEST PAIN 07/19/25 01:00 Morphine Sulfate 2 mg Q30M PRN IV FOR CHEST PAIN 07/19/25 01:00 Morphine Sulfate 1 mg Q4HPRN PRN IV SEVERE PAIN (7-10 PAIN SCALE) 07/19/25 01:00 07/19/25 12:10 Ondansetron HCl (Zofran) 4 mg Q6HPRN PRN IV NAUSEA / VOMITING 07/19/25 01:00 Albuterol (Ventolin Medneb) 2.5 mg Q6HR NEB 07/19/25 06:00 07/19/25 06:43 Ipratropium [place] (Atrovent Medneb) 0.5 mg Q6HP NEB 07/19/25 06:00 07/19/25 06:43 Ceftriaxone Sodium 50 ml @ 100 mls/hr DAILY IV 07/19/25 10:00 07/19/25 10:45 Vital Signs Vital Signs Date Time Temp Pulse Resp B/P (MAP) Pulse Ox O2 Delivery O2 Flow Rate FiO2 07/19/25 12:10 115 20 178/68 07/19/25 07:49 99.6 98 99.6 07/19/25 07:36 Room Air* 0 21 Physical Exam Gen.: Patient lying in bed in no apparent distress. On supplemental oxygen. Head: Normocephalic, atraumatic Eyes: EOMI/PERRLA. Ears: Normal hearing. Normal anatomy. Neck/trachea: Trachea midline, supple. Nose: Normal external anatomy. Mouth: Moist mucous membranes. Chest: Fair air entry bilaterally. No wheezing or rhonchi. Dullness to percussion on left lower lung field. Cardio vascular: Positive S1, positive S2. Regular rate and rhythm. Abdomen: Positive bowel sounds in all 4 quadrants. Soft, non-tender, non- distended. : Deferred. Rectal: Deferred Skin: Warm, dry. Extremities: 2+ radial pulses bilaterally. No lower extremity edema. Right hip fracture, pain with movement. Neuro: Awake, alert, oriented x3. No gross motor or sensory deficits. Cranial nerves II through XII intact. Gait not assessed. Labs/Diagnostic Data Labs Test 07/19/25 09:35 07/19/25 04:40 07/18/25 22:02 Range/Units Blood Gas Specimen Type Arterial Blood Gas Sample Site Left radial Blood Gas Patient Temperature 37.0 Arterial Blood Date Drawn [id number] Arterial Blood pH 7.399 7.350-7.450 Arterial Blood Partial Pressure CO2 28.1 L 32.0-45.0 mmHg Arterial Blood Partial Pressure O2 67.3 L 83.0-108.0 mmHg Arterial Blood HCO3 17.0 L 21.0-28.0 mmol/L Arterial Blood Oxygen Saturation 92.4 L 94.0-98.0 % Arterial Blood Base Excess -6.6 L -2.0-3.0 mmol/L Arterial Blood Oxyhemoglobin 91.8 L 94.0-98.0 % Arterial Blood Carboxyhemoglobin 0.3 L 0.5-1.5 % Arterial Blood Methemoglobin 0.4 0.0-1.5 % Arterial Blood Deoxyhemoglobin 7.5 H 0.0-5.0 % Luis Test Yes Blood Gas Total Hemoglobin 11.60 L 12.0-16.0 g/dL Blood Gas Modality Room air FiO2 % 21.0 White Blood Count 16.5 H 4.4-10.8 10^3/uL Red Blood Count 3.82 L 4.0-5.20 10^6/uL Hemoglobin 11.9 L 12.2-16.2 g/dL Hematocrit 38.5 36.0-46.0 % Mean Corpuscular Volume 100.8 #H 80.0-100.0 fL Mean Corpuscular Hemoglobin 31.2 28.0-32.0 pg Mean Corpuscular Hemoglobin Concent 31.0 L 32.0-36.0 g/dL Red Cell Distribution Width 15.9 H 11.8-14.3 % Platelet Count 273 140-450 10^3/uL Mean Platelet Volume 7.5 6.9-10.8 fL Neutrophils (%) (Auto) 43.1 37.0-80.0 % Lymphocytes (%) (Auto) 9.4 L 10.0-50.0 % Monocytes (%) (Auto) 7.9 0.0-12.0 % Eosinophils (%) (Auto) 39.4 H 0.0-7.0 % Basophils (%) (Auto) 0.2 0.0-2.0 % Neutrophils # (Auto) 7.1 1.6-8.6 10 ^3/uL Lymphocytes # (Auto) 1.6 0.4-5.4 10 ^3/uL Monocytes # (Auto) 1.3 0-1.3 10 ^3/uL Eosinophils # (Auto) 6.5 H 0-0.8 10 ^3/uL Basophils # (Auto) 0 0-0.2 10 ^3/uL Nucleated Red Blood Cells 0.1 % Sodium Level 142 136-145 mmol/L Potassium Level 3.9 3.5-5.1 mmol/L Chloride Level 107 98-107 mmol/L Carbon Dioxide Level 15 L 20-31 mmol/L Anion Gap 20 H 5-15 Blood Urea Nitrogen 15 9-23 mg/dL Creatinine 0.75 0.550-1.02 mg/dL Glomerular Filtration Rate Calc 78 >90 mL/min BUN/Creatinine Ratio 20.0 10.0-20.0 Serum Glucose 72 L 74-106 mg/dL Calcium Level 9.1 8.7-10.4 mg/dL Total Bilirubin 0.4 0.2-1.0 mg/dL Aspartate Amino Transferase (AST) 31 13-40 U/L Alanine Aminotransferase (ALT) 18 7-40 U/L Alkaline Phosphatase 68 46-116 U/L Total Protein 7.0 5.7-8.2 g/dL Albumin 3.3 3.2-4.8 g/dL Differential Total Cells Counted 100.0 100 Neutrophils % (Manual) 35 L 37.0-80.0 Band Neutrophils % (Manual) 0 Lymphocytes % (Manual) 6 L 10.0-50.0 Monocytes % (Manual) 6 0-12 Eosinophils % (Manual) 53 H 0-7 Basophils % (Manual) 0 0.0-2.0 Metamyelocytes % (manual) 0 Myelocytes % (Manual) 0 Promyelocytes % (Manual) 0 Blast Cells % (Manual) 0 Reactive Lymphocytes 0 Platelet Estimate Adequate Poikilocytosis (manual) Slight Ovalocytes Few [place] Cells Few Prothrombin Time 11.2 9.3-11.8 sec Prothrombin Time INR 1.06 0.9-1.15 Activated Partial Thromboplast Time 26.2 24.5-34.5 SEC Assessment Impression: Acute hypoxic respiratory failure Left pleural effusion Compressive atelectasis Closed right hip fracture Possible pulmonary hypertension Enlarged pulmonary trunk Lymphadenopathy, Axillary Metabolic acidosis Plan: Supp o2 Keep o2 sat above 92% CT chest reviewed. Moderate left pleural effusion. Compressive atelectasis. Moderate inflammatory stranding of left chest wall, breast, axilla and enlarged left axillary lymph nodes. Enlarged pulmonary trunk. ABG reviewed. Compensated. Metabolic acidosis with respiratory acidosis. Continue antibiotics. Continue bronchodilators. Pain control Avoid over sedation Limited chest US: Moderate left pleural effusion. See separate procedure note for left thoracentesis. Drained 450 mL ricardo colored fluid. Pleural fluid sent for cell count and differential, LDH, total protein, pH, glucose, body fluid and culture. It was also sent for cytology. F/u CXR post procedure. Patient is stable from pulmonary standpoint to proceed with planned procedure if CXR demonstrates no pneumothorax. No further pulmonary testing required. Patient may proceed with planned procedure with knowledge of the risks inherent to the procedure. Plan discussed with: Patient, Other (LATASHA Evans MD) Visit Coding Pulmonary Billing Provider: KIRSTIN MIMS MD Date of Service if different f: Jul 19, 2025 Common Visit Codes: 11915-ZTRXVLP INP/OBS CARE (HIGH) KIRSTIN MIMS MD Jul 19, 2025 12:58
[2025-07-19] MEDS ORDERED: fentaNYL CITRATE 100 MCG/2 ML VL ONE (13:09)
--- NOTE | 2025-07-19 13:19 | DVH ---
CHEST RADIOGRAPH Indication: s/p Left thoracentesis r/o PTX Technique: Single frontal view of the chest was obtained COMPARISON: CT CHEST WITHOUT CONTRAST on DOS: 07/19/25, XY CHEST XRAY 1 VIEW on DOS: 07/18/25, XY CHEST PORTABLE on DOS: 07/18/25 FINDINGS: Lines and Tubes: None Lungs: Clear Pleura: Near complete resolution of left pleural effusion after thoracentesis. No pneumothorax. Cardiomediastinal contours: Unremarkable Bones: Unremarkable IMPRESSION: Near complete resolution of left pleural effusion after thoracentesis. No pneumothorax.
[2025-07-19] MEDS ORDERED: GLYCOPYRROLATE 0.2 MG/ML 1ML VIAL ONE (13:38)
[2025-07-19] MEDS ORDERED: PROPOFOL 10 MG/ML 20 ML IV ONE (13:38)
[2025-07-19] MEDS ORDERED: KETAMINE 50mg/ML 10ml Vial 10 ML ONE (13:38)
[2025-07-19] MEDS ORDERED: MIDAZOLAM HCL 2MG/2ML 2ml VIAL (1mg/ml) ONE (13:38)
[2025-07-19] MEDS ORDERED: ONDANSETRON HCL 4 MG/2 ML VIAL ONE (13:38)
[2025-07-19] MEDS: LIDOCAINE 1%-Mpf/Epinephrine 1:200,000 30ml VIAL ONE (14:15)
[2025-07-19] MEDS: BUPIVACAINE 0.25% INJ 50ML VIAL ONE (14:15)
--- NOTE | 2025-07-19 16:19 | DVHINCON2 ---
Date of service: Jul 19, 2025 Referring Physician Jose Reason for Consultation Cardiac clearance History of Present Illness This is a 84 year old female who was brought in by EMS due to complaints of right hip and leg pain with deformity to right leg, status post ground level mechanical fall yesterday. today. Chest x-ray shows significant interval decrease in size in the left-sided pleural effusion with improved aeration of the left lung. CT head showed no acute intracranial abnormality. Right hip x-ray revealed a nondisplaced intertrochanteric proximal right femoral fracture with mild varus angulation. Hip joint is congruent. CT of the chest demonstrated a moderate-sized left pleural effusion with overlying atelectasis and/or consolidation, moderate inflammatory stranding involving the left chest wall, breast, and axilla with enlarged left axillary lymph nodes, mildly dilated main pulmonary artery, may be seen with pulmonary arterial hypertension. WBC 15.6. Patient was admitted to the hospital. I am asked to consult on this patient. Echocardiogram showed LV EF of 75%. Allergies: Coded Allergies: NO KNOWN ALLERGIES (Unverified , 04/16/25) Home Meds Active Scripts Levofloxacin Hemihydrate (LEVOFLOXACIN) 500 Mg Tab, 500 MG PO DAILY for 10 Days, #10 MG Prov:CORRIE ARANA MD 07/18/25 Cephalexin Monohydrate (Cephalexin) 500 Mg Cap, 1 CAP PO TID, #21 CAP Prov:MENDY BURGOS 04/16/25 Current Medications Current Medications Medications (Trade) Dose Ordered Sig/Juan Route PRN Reason Start Time Stop Time Status Last Admin Nitroglycerin (Ntrostat Sublingual) 0.4 mg Q5MINP PRN SL FOR CHEST PAIN 07/19/25 01:00 Morphine Sulfate 2 mg Q30M PRN IV FOR CHEST PAIN 07/19/25 01:00 Morphine Sulfate 1 mg Q4HPRN PRN IV SEVERE PAIN (7-10 PAIN SCALE) 07/19/25 01:00 07/19/25 12:10 Ondansetron HCl (Zofran) 4 mg Q6HPRN PRN IV NAUSEA / VOMITING 07/19/25 01:00 Albuterol (Ventolin Medneb) 2.5 mg Q6HR NEB 07/19/25 06:00 07/19/25 12:27 Ipratropium [place] (Atrovent Medneb) 0.5 mg Q6HP NEB 07/19/25 06:00 07/19/25 12:27 Ceftriaxone Sodium 50 ml @ 100 mls/hr DAILY IV 07/19/25 10:00 07/19/25 10:45 Cefazolin Sodium 50 ml @ 100 mls/hr Q8HR IV 07/19/25 21:00 Future Hold Ondansetron HCl (Zofran) 4 mg ONCE PRN IV NAUSEA / VOMITING 07/19/25 14:45 07/19/25 14:54 DC Review of Systems Constitutional: Malaise Ears, Nose, & Throat: Nose discharge Pulmonary/Respiratory: Cough Musculoskeletal: Leg pain Vital Signs Vital Signs Date Time Temp Pulse Resp B/P (MAP) Pulse Ox O2 Delivery O2 Flow Rate FiO2 07/19/25 15:34 109 13 128/66 (86) 94 07/19/25 14:45 Mask 8.0 07/19/25 14:45 98.5 98.5 07/19/25 12:27 21 Physical Exam GENERAL: Alert and oriented x 3. No acute distress. EYES: PERRL, EOMI. Anicteric. HENT: Moist mucous membranes. LUNGS: Clear to auscultation bilaterally. CARDIOVASCULAR: Regular rate and rhythm. ABDOMEN: Soft, non-tender and non-distended. EXTREMITIES: RLE TTP with shortening. NEUROLOGIC: No focal neurological deficits. SKIN: Warm, dry. Labs/Diagnostic Data Labs Test 07/19/25 12:05 07/19/25 09:35 07/19/25 04:40 07/18/25 22:02 Range/Units Blood Gas Specimen Type Arterial Blood Gas Sample Site Left radial Blood Gas Patient Temperature 37.0 Arterial Blood Date Drawn [id number] Arterial Blood pH 7.399 7.350-7.450 Arterial Blood Partial Pressure CO2 28.1 L 32.0-45.0 mmHg Arterial Blood Partial Pressure O2 67.3 L 83.0-108.0 mmHg Arterial Blood HCO3 17.0 L 21.0-28.0 mmol/L Arterial Blood Oxygen Saturation 92.4 L 94.0-98.0 % Arterial Blood Base Excess -6.6 L -2.0-3.0 mmol/L Arterial Blood Oxyhemoglobin 91.8 L 94.0-98.0 % Arterial Blood Carboxyhemoglobin 0.3 L 0.5-1.5 % Arterial Blood Methemoglobin 0.4 0.0-1.5 % Arterial Blood Deoxyhemoglobin 7.5 H 0.0-5.0 % Luis Test Yes Blood Gas Total Hemoglobin 11.60 L 12.0-16.0 g/dL Blood Gas Modality Room air FiO2 % 21.0 White Blood Count 16.5 H 4.4-10.8 10^3/uL Red Blood Count 3.82 L 4.0-5.20 10^6/uL Hemoglobin 11.9 L 12.2-16.2 g/dL Hematocrit 38.5 36.0-46.0 % Mean Corpuscular Volume 100.8 #H 80.0-100.0 fL Mean Corpuscular Hemoglobin 31.2 28.0-32.0 pg Mean Corpuscular Hemoglobin Concent 31.0 L 32.0-36.0 g/dL Red Cell Distribution Width 15.9 H 11.8-14.3 % Platelet Count 273 140-450 10^3/uL Mean Platelet Volume 7.5 6.9-10.8 fL Neutrophils (%) (Auto) 43.1 37.0-80.0 % Lymphocytes (%) (Auto) 9.4 L 10.0-50.0 % Monocytes (%) (Auto) 7.9 0.0-12.0 % Eosinophils (%) (Auto) 39.4 H 0.0-7.0 % Basophils (%) (Auto) 0.2 0.0-2.0 % Neutrophils # (Auto) 7.1 1.6-8.6 10 ^3/uL Lymphocytes # (Auto) 1.6 0.4-5.4 10 ^3/uL Monocytes # (Auto) 1.3 0-1.3 10 ^3/uL Eosinophils # (Auto) 6.5 H 0-0.8 10 ^3/uL Basophils # (Auto) 0 0-0.2 10 ^3/uL Nucleated Red Blood Cells 0.1 % Sodium Level 142 136-145 mmol/L Potassium Level 3.9 3.5-5.1 mmol/L Chloride Level 107 98-107 mmol/L Carbon Dioxide Level 15 L 20-31 mmol/L Anion Gap 20 H 5-15 Blood Urea Nitrogen 15 9-23 mg/dL Creatinine 0.75 0.550-1.02 mg/dL Glomerular Filtration Rate Calc 78 >90 mL/min BUN/Creatinine Ratio 20.0 10.0-20.0 Serum Glucose 72 L 74-106 mg/dL Calcium Level 9.1 8.7-10.4 mg/dL Total Bilirubin 0.4 0.2-1.0 mg/dL Aspartate Amino Transferase (AST) 31 13-40 U/L Alanine Aminotransferase (ALT) 18 7-40 U/L Alkaline Phosphatase 68 46-116 U/L Total Protein 7.0 5.7-8.2 g/dL Albumin 3.3 3.2-4.8 g/dL Differential Total Cells Counted 100.0 100 Neutrophils % (Manual) 35 L 37.0-80.0 Band Neutrophils % (Manual) 0 Lymphocytes % (Manual) 6 L 10.0-50.0 Monocytes % (Manual) 6 0-12 Eosinophils % (Manual) 53 H 0-7 Basophils % (Manual) 0 0.0-2.0 Metamyelocytes % (manual) 0 Myelocytes % (Manual) 0 Promyelocytes % (Manual) 0 Blast Cells % (Manual) 0 Reactive Lymphocytes 0 Platelet Estimate Adequate Poikilocytosis (manual) Slight Ovalocytes Few [place] Cells Few Prothrombin Time 11.2 9.3-11.8 sec Prothrombin Time INR 1.06 0.9-1.15 Activated Partial Thromboplast Time 26.2 24.5-34.5 SEC Assessment Closed right hip fracture. Pneumonia, Acute hypoxic respiratory failure. Left pleural effusion. Compressive atelectasis. Enlarged pulmonary trunk. Lymphadenopathy, Axillary. Metabolic acidosis. Plan/Recommendation I agree with your ongoing assessment and care of plan. Patient is cardiac cleared for surgery. IV antibiotics as ordered. Morphine for pain management. Nitro SL. Additional plan as per the hospital course. A total of 45 minutes was spent reviewing the patient record, examining the patient, making a diagnostic and therapeutic plan, discussing this plan with medical personnel, following up on diagnostic studies and following the patient for clinical stability excluding any and all procedures. At least 50% of this time was spent in direct, [id number] contact. Plan discussed with: Patient KHADAR MAY MD Jul 19, 2025 16:19
--- NOTE | 2025-07-19 16:44 | DVHOP2 ---
Operative Report - 2 Report Details Date: 07/19/25 Preop Diagnosis: Right hip intertrochanter fracture Postop Diagnosis: as above Surgeon: Rajendra Humphrey MD Anesthesiologist: Kaleb GOMEZ Anesthesia: Mac, Regional Implant: ITS Short 125 x 10 mm nail lag screw/ set screw distal locking screw Consent: The patient was informed of the risks and benefits of the procedure. These include but are not limited to complications of anesthesia, postoperative infection, incomplete relief of symptoms, recurrence of symptoms, damage to blood vessels, nerves and tendons, deep venous thrombosis, pulmonary embolism and possible need for repeat surgery in the future. Estimated Blood Loss: 100 cc Name of Procedure Performed 1. Open reduction internal fixation of right hip intertrochanteric fracture 2. Right iliofascial nerve block 3. Intraop Fluoroscopy Procedure Details Procedure Details: FINDINGS: IT fracture, reduced on the fracture table. DESCRIPTION OF PROCEDURE: In the preoperative holding area, the consent was reviewed and the appropriate extremity was verified by the patient and marked with my initials. The patient was then transferred to the operating theatre. Patient was placed on a fracture table. Appropriate anesthesia was induced. All bony prominences were well padded. A time out was performed verifying the side and site of surgery according to standard protocol. Preoperative antibiotics were given. The extremity was then prepped and draped in the usual sterile fashion. Using c-arm, the fracture was reduced using the fracture table and a combination of maneuvers including traction, internal rotation, and flexion. Jacobo bocanegra has severe comorbidities that did not allow for general anesthesia. I did an iliofascial nerve block with sedation to allow patient to safely have surgery.. An incision was made over the greater trochanter confirming correct position with c-arm. A guide wire was drilled into the tip of the greater trochanter, centered A to P. We used the starting reamer to gain entry to the femoral canal. A short nail was then placed. A guide pin was then drilled in the center of the femoral head confirmed using fluoroscopy. We measured the screw lengths. Using a cannulated drill, we drilled the lateral cortex. The screws were then introduced. Once positioned, we once again confirmed that the screws were with the femoral head. Cerament placed into fracture site. Attention was turned distally. We used the targeting device to drill through the nail and the femur. This was measured using the device, and the screw was placed with good purchase. Final xrays were taken showing the hardware in perfect position. The wound was copiously irrigated. No fractures were seen on the rest of the femur. The fascia was closed with #1 Vicryl, the skin closed #2-0 Vicryl, and shanna. A dry sterile dressing was placed on the patient. The patient was transferred to the recovery room in stable condition. Condition Fair Disposition Still a Patient RAJENDRA HUMPHREY MD Jul 19, 2025 16:44
--- NOTE | 2025-07-19 16:51 | DVH ---
CLINICAL INDICATION: ORIF RT HIP TECHNIQUE: 4 radiographic views of the patient is status post open reduction internal fixation right hip fracture were obtained. Comparison: None FINDINGS/IMPRESSION: 4 images of open reduction internal fixation right hip fracture placement of a jet and compression screw Total fluoro time 62.7 seconds Cumulative dose: 3.02 mGy
--- NOTE | 2025-07-19 16:52 | DVH ---
C-ARM FLUOROSCOPY: PROCEDURE: Dose summary sheet on ORIF right hip fracture FLUOROSCOPY TIME: 62.7 seconds Air Kerma: 3.02 mgy FINDINGS: Spot intraoperative C arm radiographs demonstrating ORIF right hip fracture. IMPRESSION: 1. Please refer to surgical report for detailed findings.
[2025-07-19] MEDS ORDERED: MORPHINE SULFATE 4 MG/ML SYR/VIAL IV PRN (17:45)
[2025-07-19] MEDS: MORPHINE SULFATE 4 MG/ML SYR/VIAL IV PRN (17:45)
[2025-07-19] MEDS ORDERED: ceFAZolin 1GM/50ML 50 ML IV SCH (21:00)
[2025-07-19 21:18] LABS: Urine Budding Yeast OCCASIONAL /hpf (None Seen); Urine Protein, UAD 1+ (Negative)
[2025-07-20] VITALS (17 sets, daily range): BP systolic 137–161; BP diastolic 56–69; PULSE 78–120; RESP 14–20; TEMP 97–99.8; O2SAT 92–100
[2025-07-20] MEDS: ceFAZolin 2 GM/D5W50ml 50 ML IV ONE (07:35)
[2025-07-20] MEDS: ROPIVACAINE 0.5% (5MG/ML) 20ML AMPULE IJ ONE (07:35)
[2025-07-20] MEDS: MEPERIDINE HCL (25 MG/ML) 1ML VIAL IV ONE (07:36)
--- NOTE | 2025-07-20 11:03 | DVH ---
CLINICAL HISTORY: DARIN TECHNIQUE: Complete ultrasound exam of the kidneys and bladder was performed. COMPARISON: None FINDINGS: The right kidney has normal echogenicity and measures 10.1 cm. There is no focal parenchymal abnormality or evidence for stone. There is no hydronephrosis. The poorly seen left kidney has increased echogenicity and measures 7.9 cm. There is no focal parenchymal abnormality or evidence for stone. There is no hydronephrosis. The bladder is not seen, likely due to decompression by Luna catheter. IMPRESSION: Small echogenic left kidney, compatible medical renal disease. No hydronephrosis.
--- NOTE | 2025-07-20 11:30 | DVHPN2 ---
Progress Note - Dictate Date Seen: Jul 20, 2025 Medical Necessity Reason Pt with a Central, PICC or Fol: Yes The following are medically ne: Luna Catheter vital signs Vital Sign Date Time Temp Pulse Resp B/P (MAP) Pulse Ox O2 Delivery O2 Flow Rate FiO2 07/20/25 11:21 119 20 100 07/20/25 11:16 Room Air* 0 21 07/20/25 09:00 99.8 139/67 (91) 99.8 Total Intake and Output 07/19/25 07/19/25 07/20/25 15:00 23:00 07:00 Intake Total 150 ml 0 ml 100 ml Output Total 650 ml Balance 150 ml 0 ml -550 ml medications Current Medications Medications Dose Ordered Sig/Juan Route Start Time Stop Time Status Last Admin Dose Admin Nitroglycerin 0.4 mg Q5MINP PRN SL 07/19/25 01:00 Ondansetron HCl 4 mg Q6HPRN PRN IV 07/19/25 01:00 Albuterol 2.5 mg Q6HR NEB 07/19/25 06:00 07/20/25 11:15 2.5 MG Ipratropium [place] 0.5 mg Q6HP NEB 07/19/25 06:00 07/20/25 11:15 0.5 MG Ceftriaxone Sodium 50 ml @ 100 mls/hr DAILY IV 07/19/25 10:00 07/20/25 09:21 100 MLS/HR Cefazolin Sodium 50 ml @ 100 mls/hr Q8HR IV 07/19/25 21:00 Hold Morphine Sulfate 2 mg Q30M PRN IV 07/19/25 17:45 Morphine Sulfate 1 mg Q4HPRN PRN IV 07/19/25 17:45 07/19/25 17:45 1 MG Sodium Bicarbonate 50 ml/ Dextrose/Sodium Chloride 1,050 ml @ 75 mls/hr Q14H IV 07/20/25 10:15 Azithromycin 250 ml @ 125 mls/hr DAILY IV 07/21/25 10:00 Enoxaparin Sodium 40 mg DAILY SC 07/21/25 10:00 Metoprolol Tartrate 25 mg BID PO 07/20/25 22:00 laboratory and microbiology Laboratory Tests 07/19/25 04:40 Test 07/19/25 04:40 Range/Units Serum Glucose 72 L 74-106 mg/dL Assessment/Plan Impression Acute hypoxemic respiratory failure Left pleural effusions Right hip fracture Pneumonia Patient seen and examined Events Low oxygen requirements On room air No distress S/p thoracentesis Fluid analysis consistent with partially treated parapneumonic effusions Labs and imaging reviewed Management Supplemental oxygen as needed Titrate to maintain sats 90% or above Incentive spirometry Continue antibiotics F/u cultures Bronchodilators Monitor renal function Monitor electrolytes Supplement as needed Pain control Avoid oversedation DVT prophylaxis Plan discussed with: Patient WILLIAM MADERA MD Jul 20, 2025 11:30
[2025-07-20 11:38] LABS: Lactic Acid w/Reflex 2.1 mmol/L (0.4-2.0)
[2025-07-20] MEDS: SODIUM CHLORIDE 0.9% 500 ML IV ONE (11:54)
[2025-07-20] MEDS: ENOXAPARIN SOD 40 MG/0.4 ML SYRINGE SC ONE (11:54)
[2025-07-20] MEDS: AZITHROMYCIN 500MG/250ML 250 ML IV ONE (11:55)
[2025-07-20] MEDS: METOPROLOL TARTRATE 1MG/1ML-5ML VIAL IV ONE (12:05)
[2025-07-20 12:07] LABS: Glucose, Body Fluid 96.0 mg/dL (.); LD, Body Fluid 210.0 IU/L (.)
--- NOTE | 2025-07-20 12:16 | DVHCONRES ---
Date Seen: Jul 20, 2025 Resident Creating Document: DEANDRE MOORE RESIDENT Reason for Consultation Metabolic Acidosis History of Present Illness Emi Calero Cabello 84 y.o. female without significant medical history was brought to the ER c/o right hip and right leg pain after sustaining a mechanical fall yesterday. Patient was seen earlier yesterday for flu-like symptoms and was discharged home to continue Abx therapy for PNA. Past Medical History Patient denies Past Surgical History Right hip ORIF Allergies: Coded Allergies: NO KNOWN ALLERGIES (Unverified , 04/16/25) Home Meds Active Scripts Levofloxacin Hemihydrate (LEVOFLOXACIN) 500 Mg Tab, 500 MG PO DAILY for 10 Days, #10 MG Prov:CORRIE ARANA MD 07/18/25 Cephalexin Monohydrate (Cephalexin) 500 Mg Cap, 1 CAP PO TID, #21 CAP Prov:MENDY BURGOS 04/16/25 Current Medications Current Medications Medications (Trade) Dose Ordered Sig/Juan Route PRN Reason Start Time Stop Time Status Last Admin Cefazolin Sodium 50 ml @ 100 mls/hr Q8HR IV 07/19/25 21:00 Hold Ondansetron HCl (Zofran) 4 mg ONCE PRN IV NAUSEA / VOMITING 07/19/25 14:45 07/19/25 14:54 DC Morphine Sulfate 2 mg Q30M PRN IV FOR CHEST PAIN 07/19/25 17:45 Morphine Sulfate 1 mg Q4HPRN PRN IV SEVERE PAIN (7-10 PAIN SCALE) 07/19/25 17:45 07/19/25 17:45 Sodium Bicarbonate 50 ml/ Dextrose/Sodium Chloride 1,050 ml @ 75 mls/hr Q14H IV 07/20/25 10:15 Azithromycin 250 ml @ 125 mls/hr DAILY IV 07/21/25 10:00 Enoxaparin Sodium (Lovenox) 40 mg DAILY SC 07/21/25 10:00 Metoprolol Tartrate (Lopressor Tablet) 25 mg BID PO 07/20/25 22:00 Review of Systems Patient seen and examined at the bedside. Patient is currently altered unable to answer questions. Vital Signs Vital Signs Date Time Temp Pulse Resp B/P (MAP) Pulse Ox O2 Delivery O2 Flow Rate FiO2 07/20/25 12:05 119 133/69 07/20/25 11:21 20 100 07/20/25 11:16 Room Air* 0 21 07/20/25 09:00 99.8 99.8 Physical Exam GENERAL: Alert and oriented x 2. No acute distress. EYES: PERRL, EOMI. Anicteric. HENT: Moist mucous membranes. LUNGS: Clear to auscultation bilaterally. CARDIOVASCULAR: Regular rate and rhythm. ABDOMEN: Soft, non-tender and non-distended. EXTREMITIES: RLE TTP with shortening. NEUROLOGIC: No focal neurological deficits. SKIN: Warm, dry. Labs/Diagnostic Data Labs Test 07/20/25 11:51 07/20/25 10:43 07/19/25 20:13 07/19/25 12:05 Range/Units D-Dimer, Quantitative 3.59 H 0.0-0.49 mg/L FEU Lactic Acid Level 2.1 *H 0.4-2.0 mmol/L Magnesium Level 1.7 1.6-2.6 mg/dL B-Type Natriuretic Peptide 614.88 0-100 pg/mL Vitamin D 25-Hydroxy 81.4 30.0-100 ng/mL Parathyroid Hormone (Intact) 28.9 18.4-80.1 pg/mL Urine Color Yellow Yellow Urine Clarity Clear Clear Urine pH 5.5 5.0-9.0 Urine Specific [place] 1.029 1.001-1.035 Urine Protein 1+ H Negative Urine Ketones 3+ H Negative Urine Blood 3+ H Negative /uL Urine Nitrite Negative Negative Urine Bilirubin Negative Negative Urine Urobilinogen Normal Negative mg/dL Urine Leukocyte Esterase Negative Negative /uL Urine RBC 271 0 - 4 /hpf Urine Microscopic WBC 11 H 0-5 /HPF Urine Squamous Epithelial Cells Few <5 /hpf Urine Bacteria Few H None Seen /hpf Urine Hyaline Casts Few 0 - 2 /lpf Urine Mucus Few None Seen Urine Yeast (Budding) Occasional None Seen /hpf Urine Glucose Normal Normal mg/dL Body Fluid Source Pleural fluid Body Fluid pH 8.0 Body Fluid WBC (Manual) 881 H 0-200 CUMM Body Fluid RBC (Manual) 921 0-2000 CUMM Body Fluid Mononuclear Cells 48 % Body Fluid Polymorphonuclear Cells 52 H 0-25 % Body Fluid Glucose 96 . mg/dL Body Fluid Total Protein 4.2 . g/dL Body Fluid Lactate Dehydrogenase 210 . IU/L Test 07/19/25 09:35 07/19/25 04:40 07/18/25 22:02 Range/Units Blood Gas Specimen Type Arterial Blood Gas Sample Site Left radial Blood Gas Patient Temperature 37.0 Arterial Blood Date Drawn Arterial Blood pH 7.399 7.350-7.450 Arterial Blood Partial Pressure CO2 28.1 L 32.0-45.0 mmHg Arterial Blood Partial Pressure O2 67.3 L 83.0-108.0 mmHg Arterial Blood HCO3 17.0 L 21.0-28.0 mmol/L Arterial Blood Oxygen Saturation 92.4 L 94.0-98.0 % Arterial Blood Base Excess -6.6 L -2.0-3.0 mmol/L Arterial Blood Oxyhemoglobin 91.8 L 94.0-98.0 % Arterial Blood Carboxyhemoglobin 0.3 L 0.5-1.5 % Arterial Blood Methemoglobin 0.4 0.0-1.5 % Arterial Blood Deoxyhemoglobin 7.5 H 0.0-5.0 % Luis Test Yes Blood Gas Total Hemoglobin 11.60 L 12.0-16.0 g/dL Blood Gas Modality Room air FiO2 % 21.0 White Blood Count 16.5 H 4.4-10.8 10^3/uL Red Blood Count 3.82 L 4.0-5.20 10^6/uL Hemoglobin 11.9 L 12.2-16.2 g/dL Hematocrit 38.5 36.0-46.0 % Mean Corpuscular Volume 100.8 #H 80.0-100.0 fL Mean Corpuscular Hemoglobin 31.2 28.0-32.0 pg Mean Corpuscular Hemoglobin Concent 31.0 L 32.0-36.0 g/dL Red Cell Distribution Width 15.9 H 11.8-14.3 % Platelet Count 273 140-450 10^3/uL Mean Platelet Volume 7.5 6.9-10.8 fL Neutrophils (%) (Auto) 43.1 37.0-80.0 % Lymphocytes (%) (Auto) 9.4 L 10.0-50.0 % Monocytes (%) (Auto) 7.9 0.0-12.0 % Eosinophils (%) (Auto) 39.4 H 0.0-7.0 % Basophils (%) (Auto) 0.2 0.0-2.0 % Neutrophils # (Auto) 7.1 1.6-8.6 10 ^3/uL Lymphocytes # (Auto) 1.6 0.4-5.4 10 ^3/uL Monocytes # (Auto) 1.3 0-1.3 10 ^3/uL Eosinophils # (Auto) 6.5 H 0-0.8 10 ^3/uL Basophils # (Auto) 0 0-0.2 10 ^3/uL Nucleated Red Blood Cells 0.1 % Sodium Level 142 136-145 mmol/L Potassium Level 3.9 3.5-5.1 mmol/L Chloride Level 107 98-107 mmol/L Carbon Dioxide Level 15 L 20-31 mmol/L Anion Gap 20 H 5-15 Blood Urea Nitrogen 15 9-23 mg/dL Creatinine 0.75 0.550-1.02 mg/dL Glomerular Filtration Rate Calc 78 >90 mL/min BUN/Creatinine Ratio 20.0 10.0-20.0 Serum Glucose 72 L 74-106 mg/dL Calcium Level 9.1 8.7-10.4 mg/dL Total Bilirubin 0.4 0.2-1.0 mg/dL Aspartate Amino Transferase (AST) 31 13-40 U/L Alanine Aminotransferase (ALT) 18 7-40 U/L Alkaline Phosphatase 68 46-116 U/L Total Protein 7.0 5.7-8.2 g/dL Albumin 3.3 3.2-4.8 g/dL Differential Total Cells Counted 100.0 100 Neutrophils % (Manual) 35 L 37.0-80.0 Band Neutrophils % (Manual) 0 Lymphocytes % (Manual) 6 L 10.0-50.0 Monocytes % (Manual) 6 0-12 Eosinophils % (Manual) 53 H 0-7 Basophils % (Manual) 0 0.0-2.0 Metamyelocytes % (manual) 0 Myelocytes % (Manual) 0 Promyelocytes % (Manual) 0 Blast Cells % (Manual) 0 Reactive Lymphocytes 0 Platelet Estimate Adequate Poikilocytosis (manual) Slight Ovalocytes Few [place] Cells Few Prothrombin Time 11.2 9.3-11.8 sec Prothrombin Time INR 1.06 0.9-1.15 Activated Partial Thromboplast Time 26.2 24.5-34.5 SEC Microbiology Date/Time Source Procedure Growth Status 07/19/25 12:05 Pleural Fluid Gram Stain Pending Resulted 07/19/25 12:05 Pleural Fluid Body Fluid Culture - Preliminary No growth Resulted Assessment CKD stage 2 Encephalopathy Metabolic acidosis Proteinuria in the range of 2 g Closed right hip fracture s/p ORIF Pneumonia, Acute hypoxic respiratory failure. Left pleural effusion. Compressive atelectasis. Enlarged pulmonary trunk. Lymphadenopathy, Axillary. Plan/ Monitor kidney function and urine output Monitor lab Assess fluid status daily Blood pressure management Avoid nephrotoxic agents will follow IVF D5W 1/2 NS with a bicarbonate Urine studies Kidney ultrasound, parathyroid hormone and vitamin-D NS 100 mL bolus Rest of management as per primary team Patient seen and examined by myself today on rounds with the medicine resident, I agree with the assessment and plan Case discussed with the Dr. Esposito Plan discussed with: Other (rn) DEANDRE MOORE RESIDENT Jul 20, 2025 12:16 DARWIN ESPOSITO MD Jul 20, 2025 15:59
[2025-07-20] MEDS: D5 IV SCH (12:20)
[2025-07-20] MEDS: SOD CHL IV SCH (12:20)
[2025-07-20] MEDS: SODIUM BICARB IV SCH (12:20)
--- NOTE | 2025-07-20 12:34 | DVHPN2 ---
Progress Note - Dictate Date Seen: Jul 20, 2025 Medical Necessity Reason Pt with a Central, PICC or Fol: Yes The following are medically ne: Luna Catheter Subjective Patient A/O x3 but noted to be trying to pull her lines requiring mittens. vital signs Vital Sign Date Time Temp Pulse Resp B/P (MAP) Pulse Ox O2 Delivery O2 Flow Rate FiO2 07/20/25 12:05 119 133/69 07/20/25 11:21 20 100 07/20/25 11:16 Room Air* 0 07/20/25 09:00 99.8 99.8 Total Intake and Output 07/19/25 07/19/25 07/20/25 15:00 23:00 07:00 Intake Total 150 ml 0 ml 100 ml Output Total 650 ml Balance 150 ml 0 ml -550 ml medications Current Medications Medications Dose Ordered Sig/Juan Route Start Time Stop Time Status Last Admin Dose Admin Nitroglycerin 0.4 mg Q5MINP PRN SL 07/19/25 01:00 Ondansetron HCl 4 mg Q6HPRN PRN IV 07/19/25 01:00 Albuterol 2.5 mg Q6HR NEB 07/19/25 06:00 07/20/25 11:15 2.5 MG Ipratropium [place] 0.5 mg Q6HP NEB 07/19/25 06:00 07/20/25 11:15 0.5 MG Ceftriaxone Sodium 50 ml @ 100 mls/hr DAILY IV 07/19/25 10:00 07/20/25 09:21 100 MLS/HR Cefazolin Sodium 50 ml @ 100 mls/hr Q8HR IV 07/19/25 21:00 Hold Morphine Sulfate 2 mg Q30M PRN IV 07/19/25 17:45 Morphine Sulfate 1 mg Q4HPRN PRN IV 07/19/25 17:45 07/19/25 17:45 1 MG Sodium Bicarbonate 50 ml/ Dextrose/Sodium Chloride 1,050 ml @ 75 mls/hr Q14H IV 07/20/25 10:15 07/20/25 12:20 75 MLS/HR Azithromycin 250 ml @ 125 mls/hr DAILY IV 07/21/25 10:00 Enoxaparin Sodium 40 mg DAILY SC 07/21/25 10:00 Metoprolol Tartrate 25 mg BID PO 07/20/25 22:00 objective General appearance: No acute distress Respiratory: Lungs clear to auscultation. No wheezing, crackles Cardiovascular: Regular rate and rhythm, no murmurs. No edema Abdomen: Soft, nondistended, nontender, bowel sounds present MSK: Moves both LE equally. Neuro: Alert, no neurological deficits. A/O x3 Psych: Appropriate mood and affect. laboratory and microbiology Laboratory Tests 07/19/25 04:40 Test 07/19/25 04:40 Range/Units Serum Glucose 72 L 74-106 mg/dL Assessment/Plan 1. Right Hip Fracture S/P ORIF 2. Left Pleural Effusion 3. Metabolic Acidosis 4. Delirium 5. Hypertension 6. NSTEMI-due to demand ischemia Plan: - Orthopedics consulted, Dr. Humphrey - Status post ORIF of the right hip - Pending physical therapy evaluation - Patient status post thoracentesis. Fluid studies pending - Ceftriaxone and azithromycin possible underlying pneumonia given recent fever - UA pending - Nephrology consulted for metabolic acidosis. Starting bicarb drip - Metoprolol 5 mg IV x 1 followed by metoprolol tartrate 25 mg p.o. twice daily for sinus tachycardia - TTE done which does not show any CHF. Concerning for HOCM. - D-dimer pending - Daily CBC and BMP -Pending transfer to SNF for PT -Lovenox 40mg SUBQ for DVT prophylaxis - Full code Plan discussed with: Patient ALBERTO TATE DO Jul 20, 2025 12:34
[2025-07-20 12:50] LABS: Protein, Urine 162.6 mg/dL (1-14)
--- NOTE | 2025-07-20 13:18 | DVH ---
Bilateral lower extremity venous duplex Clinical History: R/O DVT Comparison: None Technique: Duplex Doppler evaluation of the deep venous systems of both lower extremities from the common femoral veins to the popliteal veins including color Doppler and spectral/pulsed waveform analysis was performed. Findings: RIGHT SIDE: The common femoral vein demonstrates appropriate compressibility and waveform variability. There is compressibility/patency of the great saphenous vein at the proximal thigh. The femoral vein demonstrates appropriate compressibility and waveform variability. The deep femoral vein demonstrates appropriate compressibility and waveform variability. The popliteal vein demonstrates appropriate compressibility and waveform variability. There is normal compressibility at the tibioperoneal trunk. LEFT SIDE: The common femoral vein demonstrates appropriate compressibility and waveform variability. There is compressibility/patency of the great saphenous vein at the proximal thigh. The femoral vein demonstrates appropriate compressibility and waveform variability. The deep femoral vein demonstrates appropriate compressibility and waveform variability. The popliteal vein is not visualized. There is normal compressibility at the tibioperoneal trunk. Impression: Left popliteal vein is not visualized. Otherwise, no DVT, bilateral lower extremity.
[2025-07-20] MEDS: METOPROLOL TARTRATE 25 MG TAB PO ONE (15:58)
[2025-07-20] MEDS ORDERED: METOPROLOL TARTRATE 25 MG TAB PO SCH (22:00)
[2025-07-20] MEDS: METOPROLOL TARTRATE 25 MG TAB PO SCH (23:25)
[2025-07-21] VITALS (16 sets, daily range): BP systolic 125–171; BP diastolic 54–82; PULSE 72–114; RESP 14–17; TEMP 97.5–98.5; O2SAT 91–100
--- NOTE | 2025-07-21 00:33 | DVHPN2 ---
Progress Note - Dictate Date Seen: Jul 20, 2025 Medical Necessity Reason Pt with a Central, PICC or Fol: Yes The following are medically ne: Luna Catheter Subjective Patient was seen and evaluated in follow up. Echocardiogram showed LV EF of 75%. Patient underwent open reduction internal fixation of right hip intertrochanteric fracture by . The patient tolerated the procedure well. D-dimer 3.59, TROP 98, 89, 91. Renal US showed small echogenic left kidney, compatible medical renal disease. No hydronephrosis. BLE Venous Duplex did not show evidence of DVT. Telemetry reviewed. vital signs Vital Sign Date Time Temp Pulse Resp B/P (MAP) Pulse Ox O2 Delivery O2 Flow Rate FiO2 07/20/25 13:01 98.4 109 17 161/69 (99) 94 98.4 07/20/25 11:16 Room Air* 0 21 Total Intake and Output 07/19/25 07/19/25 07/20/25 15:00 23:00 07:00 Intake Total 150 ml 0 ml 100 ml Output Total 650 ml Balance 150 ml 0 ml -550 ml medications Current Medications Medications Dose Ordered Sig/Juan Route Start Time Stop Time Status Last Admin Dose Admin Nitroglycerin 0.4 mg Q5MINP PRN SL 07/19/25 01:00 Ondansetron HCl 4 mg Q6HPRN PRN IV 07/19/25 01:00 Albuterol 2.5 mg Q6HR NEB 07/19/25 06:00 07/20/25 11:15 2.5 MG Ipratropium [place] 0.5 mg Q6HP NEB 07/19/25 06:00 07/20/25 11:15 0.5 MG Ceftriaxone Sodium 50 ml @ 100 mls/hr DAILY IV 07/19/25 10:00 07/20/25 09:21 100 MLS/HR Cefazolin Sodium 50 ml @ 100 mls/hr Q8HR IV 07/19/25 21:00 Hold Morphine Sulfate 2 mg Q30M PRN IV 07/19/25 17:45 Morphine Sulfate 1 mg Q4HPRN PRN IV 07/19/25 17:45 07/19/25 17:45 1 MG Sodium Bicarbonate 50 ml/ Dextrose/Sodium Chloride 1,050 ml @ 75 mls/hr Q14H IV 07/20/25 10:15 07/20/25 12:20 75 MLS/HR Azithromycin 250 ml @ 125 mls/hr DAILY IV 07/21/25 10:00 Enoxaparin Sodium 40 mg DAILY SC 07/21/25 10:00 Metoprolol Tartrate 25 mg BID PO 07/20/25 22:00 objective GENERAL: Alert and oriented x 3. No acute distress. EYES: PERRL, EOMI. Anicteric. HENT: Moist mucous membranes. LUNGS: Clear to auscultation bilaterally. CARDIOVASCULAR: Regular rate and rhythm. ABDOMEN: Soft, non-tender and non-distended. EXTREMITIES: RLE TTP with shortening. NEUROLOGIC: No focal neurological deficits. SKIN: Warm, dry. laboratory and microbiology Laboratory Tests 07/19/25 04:40 Test 07/19/25 04:40 Range/Units Serum Glucose 72 L 74-106 mg/dL Problem List Closed right hip fracture. Pneumonia, Acute hypoxic respiratory failure. Left pleural effusion. Compressive atelectasis. Enlarged pulmonary trunk. Lymphadenopathy, Axillary. Metabolic acidosis. Assessment/Plan Continued all current supportive medical care. IV antibiotics as ordered. DVT prophylactics. Morphine for pain management. Nitro SL. Additional plan as per the hospital course. Plan discussed with: Patient KHADAR MAY MD Jul 20, 2025 15:47
--- NOTE | 2025-07-21 07:21 | ECG ---
[facility] Test Date: 2025-07-20 Test Time: 12:37:34 Pat Name: DALIA REED Department: Respiratoy Room: [facility]6T B Gender: F Frame Bander: : 1940 Requested By: ALBERTO TATE Order Number: [id number] Reading MD: Artie Coelho Measurements Intervals [place] Rate: 99 P: 0 [place]: 0 QRS: 46 QRSD: 71 T: 71 QT: 346 QTc: 444 Interpretive Statements Atrial fibrillation Borderline T wave abnormalities Electronically Signed On 07-22-2025 11:11:18 PST by Artie Coelho Please click the below link to view image of tracing.
[2025-07-21] MEDS: ENOXAPARIN SOD 40 MG/0.4 ML SYRINGE SC SCH (10:00)
[2025-07-21 10:17] LABS: Hematocrit 29.4 % (36.0-46.0); Hemoglobin 10.0 g/dL (12.2-16.2); Mean Corpuscular Hemoglobin 31.5 pg (28.0-32.0); Mean Corpuscular Volume 92.6 fL (80.0-100.0)
[2025-07-21] MEDS: AZITHROMYCIN 500MG/250ML 250 ML IV SCH (10:21)
[2025-07-21 10:35] LABS: Alanine Aminotransferase 16 U/L (7-40); Alkaline Phosphatase 57 U/L (46-116); Anion Gap 11 (5-15); BUN/Creatinine Ratio 20.6 (10.0-20.0); Bilirubin, Total 0.7 mg/dL (0.2-1.0); Blood Urea Nitrogen 13 mg/dL (9-23); Carbon Dioxide 31 mmol/L (20-31); Chloride 105 mmol/L (98-107); Total Protein 6.4 g/dL (5.7-8.2)
[2025-07-21 10:36] LABS: Albumin 3.2 g/dL (3.2-4.8); Calcium 8.6 mg/dL (8.7-10.4); Glucose 138 mg/dL (74-106); Potassium 3.0 mmol/L (3.5-5.1); Sodium 147 mmol/L (136-145)
[2025-07-21 10:37] LABS: Total Cells Counted 100.0 (100)
--- NOTE | 2025-07-21 12:11 | DVHDS2 ---
Discharge Summary Date of Admission Jul 19, 2025 at 00:48 Date of Discharge: Jul 22, 2025 Labs/Diagnostic Data: Laboratory Results Test 07/21/25 09:44 07/20/25 13:45 07/20/25 12:15 07/20/25 10:43 White Blood Count 10.7 10^3/uL (4.4-10.8) Red Blood Count 3.17 10^6/uL (4.0-5.20) Hemoglobin 10.0 g/dL (12.2-16.2) Hematocrit 29.4 % (36.0-46.0) Mean Corpuscular Volume 92.6 fL (80.0-100.0) Mean Corpuscular Hemoglobin 31.5 pg (28.0-32.0) Mean Corpuscular Hemoglobin Concent 34.1 g/dL (32.0-36.0) Red Cell Distribution Width 14.7 % (11.8-14.3) Platelet Count 222 10^3/uL (140-450) Mean Platelet Volume 7.7 fL (6.9-10.8) Neutrophils (%) (Auto) % (37.0-80.0) Lymphocytes (%) (Auto) % (10.0-50.0) Monocytes (%) (Auto) % (0.0-12.0) Eosinophils (%) (Auto) % (0.0-7.0) Basophils (%) (Auto) % (0.0-2.0) Neutrophils # (Auto) 10 ^3/uL (1.6-8.6) Lymphocytes # (Auto) 10 ^3/uL (0.4-5.4) Monocytes # (Auto) 10 ^3/uL (0-1.3) Differential Total Cells Counted 100.0 (100) Neutrophils % (Manual) 58 (37.0-80.0) Band Neutrophils % (Manual) 5 Lymphocytes % (Manual) 7 (10.0-50.0) Monocytes % (Manual) 8 (0-12) Eosinophils % (Manual) 19 (0-7) Basophils % (Manual) 0 (0.0-2.0) Metamyelocytes % (manual) 3 Myelocytes % (Manual) 0 Promyelocytes % (Manual) 0 Blast Cells % (Manual) 0 Reactive Lymphocytes 0 Platelet Estimate Adequate Sodium Level 147 mmol/L (136-145) Potassium Level 3.0 mmol/L (3.5-5.1) Chloride Level 105 mmol/L (98-107) Carbon Dioxide Level 31 mmol/L (20-31) Anion Gap 11 (5-15) Blood Urea Nitrogen 13 mg/dL (9-23) Creatinine 0.63 mg/dL (0.550-1.02) Glomerular Filtration Rate Calc 87 mL/min (>90) BUN/Creatinine Ratio 20.6 (10.0-20.0) Serum Glucose 138 mg/dL (74-106) Calcium Level 8.6 mg/dL (8.7-10.4) Total Bilirubin 0.7 mg/dL (0.2-1.0) Aspartate Amino Transferase (AST) 36 U/L (13-40) Alanine Aminotransferase (ALT) 16 U/L (7-40) Alkaline Phosphatase 57 U/L (46-116) Total Protein 6.4 g/dL (5.7-8.2) Albumin 3.2 g/dL (3.2-4.8) Lactic Acid Level 1.5 mmol/L (0.4-2.0) Troponin I High Sensitivity 91 ng/L (</=34) Urine Creatinine 84.18 mg/dL (30.0-125.0) Urine Protein/Creatinine Ratio 1.93 Urine Sodium 42 mmol/L (40-220) Urine Total Protein 162.6 mg/dL (1-14) D-Dimer, Quantitative 3.59 mg/L FEU (0.0-0.49) Magnesium Level 1.7 mg/dL (1.6-2.6) B-Type Natriuretic Peptide 614.88 pg/mL (0-100) Vitamin D 25-Hydroxy 81.4 ng/mL (30.0-100) Parathyroid Hormone (Intact) 28.9 pg/mL (18.4-80.1) Test 07/19/25 20:13 07/19/25 12:05 07/19/25 09:35 07/19/25 04:40 Urine Color Yellow (Yellow) Urine Clarity Clear (Clear) Urine pH 5.5 (5.0-9.0) Urine Specific [place] 1.029 (1.001-1.035) Urine Protein 1+ (Negative) Urine Ketones 3+ (Negative) Urine Blood 3+ /uL (Negative) Urine Nitrite Negative (Negative) Urine Bilirubin Negative (Negative) Urine Urobilinogen Normal mg/dL (Negative) Urine Leukocyte Esterase Negative /uL (Negative) Urine RBC 271 /hpf (0 - 4) Urine Microscopic WBC 11 /HPF (0-5) Urine Squamous Epithelial Cells Few /hpf (<5) Urine Bacteria Few /hpf (None Seen) Urine Hyaline Casts Few /lpf (0 - 2) Urine Mucus Few (None Seen) Urine Yeast (Budding) Occasional /hpf (None Urine Glucose Normal mg/dL (Normal) Body Fluid Source Pleural fluid Body Fluid pH 8.0 Body Fluid WBC (Manual) 881 CUMM (0-200) Body Fluid RBC (Manual) 921 CUMM (0-2000) Body Fluid Mononuclear Cells 48 % Body Fluid Polymorphonuclear Cells 52 % (0-25) Body Fluid Glucose 96 mg/dL (.) Body Fluid Total Protein 4.2 g/dL (.) Body Fluid Lactate Dehydrogenase 210 IU/L (.) Blood Gas Specimen Type Arterial Blood Gas Sample Site Left radial Blood Gas Patient Temperature 37.0 Arterial Blood Date Drawn Arterial Blood pH 7.399 (7.350-7.450) Arterial Blood Partial Pressure CO2 28.1 mmHg (32.0-45.0) Arterial Blood Partial Pressure O2 67.3 mmHg (83.0-108.0) Arterial Blood HCO3 17.0 mmol/L (21.0-28.0) Arterial Blood Oxygen Saturation 92.4 % (94.0-98.0) Arterial Blood Base Excess -6.6 mmol/L (-2.0-3.0) Arterial Blood Oxyhemoglobin 91.8 % (94.0-98.0) Arterial Blood Carboxyhemoglobin 0.3 % (0.5-1.5) Arterial Blood Methemoglobin 0.4 % (0.0-1.5) Arterial Blood Deoxyhemoglobin 7.5 % (0.0-5.0) Luis Test Yes Blood Gas Total Hemoglobin 11.60 g/dL (12.0-16.0) Blood Gas Modality Room air FiO2 % 21.0 Eosinophils # (Auto) 6.5 10 ^3/uL (0-0.8) Basophils # (Auto) 0 10 ^3/uL (0-0.2) Nucleated Red Blood Cells 0.1 % Test 07/18/25 22:02 Poikilocytosis (manual) Slight Ovalocytes Few [place] Cells Few Prothrombin Time 11.2 sec (9.3-11.8) Prothrombin Time INR 1.06 (0.9-1.15) Activated Partial Thromboplast Time 26.2 SEC (24.5-34.5) Other Laboratory Tests 07/21/25 09:44 Brief Hx & Hospital Course: Patient is an 84-year-old female with past medical history of hypertension who presented after mechanical fall at home. Patient stated that she got up and twisted in a quick motion causing her to lose balance. Imaging on arrival confirmed a nondisplaced intertrochanteric proximal right femur fracture. Orthopedics was consulted. Patient under went ORIF successfully. Patient's hospital course was complicated by atrial fibrillation with RVR. TTE was done which showed LVEF of 75%. There was no aortic stenosis but it was noted a large intracavitary versus LVOT gradient of greater than 130 mmHg which can be seen in HOCM. Patient was started on metoprolol to tartrate and this was titrated up to 50 mg p.o. daily. Atrial fibrillation RVR subsequently resolved and was rate controlled. She was started on Eliquis and was discharged home after being completed by orthopedics. Patient also was noted to have a left-sided pleural effusion. Pulmonary was consulted and she underwent thoracentesis. Chest x-ray was followed up and noted to to have slow resolution. Patient remained saturating greater than 90% on room air throughout her hospitalizations. Of note, patient went to physical therapy but needed significant assistance.. And transferred to Center for further physical therapy was arranged.. Patient was noticed to be grabbing at objects and exhibiting symptoms of delirium overnight remained alert and oriented x 3. She is to be started on Seroquel nightly. Patient was also noted to have some metabolic acidosis. Nephrology was consulted medicine she was started on bicarbonate drip. Repeat labs showed resolution of this. Overall, patient was [facility] condition to [facility] facility. She is to follow-up with orthopedics in 2 weeks. [facility] is [facility]. addendum 07/22/25-----patient was to be discharged to SNF yesterday on 07/21 however she had slurred speech and confusion and thus a code stroke was called, Head CT showed acute parietal lobe infarct and CTA head/neck revealed no large vessel occlusion. MRI brain was done and revealed acute right parietal, temporal and occipital lobe infarcts in the setting of new onset atrial fibrillation. Neurology was consulted and saw the patient and recommended anticoagulation in the setting of afib and cleared the patient for discharge.. Patient had a bedside swallow eval and passed. echo was already done preop and showed nml EF. Cleared by orthopedic for SNF. Patient to be discharged to SNF today. Actual date of discharge 07/22/25 Condition at Discharge: Fair Final Diagnosis/Problems List Right Femur fracture Secondary Diagnosis: 2. Left Pleural Effusion-resolved 3. Metabolic Acidosis 4. Delirium 5. Hypertension 6. NSTEMI-due to demand ischemia Discharge Disposition: [facility]way Facility Discharge Instruct/Medications Diet: Cardiac 2g Na,low cholest Activity: No Restrictions, As Tolerated Follow Up/Referral: Follow up with orthopedics in 2 weeks. Scheduled Apixaban Base (Eliquis), 2.5 MG PO BID Atorvastatin Calcium (Lipitor), 1 TAB PO DAILY Metoprolol Tartrate (Lopressor), 50 MG PO BID Discontinued Medications Cephalexin Monohydrate (Cephalexin), 1 CAP PO TID Levofloxacin Hemihydrate (Levofloxacin), 500 MG PO DAILY Discharge Statement: "Patient was advised to return to the ER or call 911 if any headaches, dizziness, shortness of breath, chest pain, abdominal pain, bleeding, fevers, or worsening of medical condition. Patient was counseled about treatment plan, medications, possible side effects, patientverbalized understanding. All questions were answered to the best of my ability. This discharge took greater then 30 minutes in planning, reviewing documentation, counseling the patient, and discussing with other team members." ASSESSMENT ASSESSMENT Assessment Right hip fracture ALBERTO TATE DO Jul 21, 2025 12:11 FLAKITO HARRIS MD Jul 22, 2025 10:54
--- NOTE | 2025-07-21 12:31 | DVH ---
CHEST RADIOGRAPH Indication: Follow up on pleural effusion Technique: Single frontal view of the chest was obtained COMPARISON: XY CHEST XRAY 1 VIEW on DOS: 07/19/25, CT CHEST WITHOUT CONTRAST on DOS: 07/19/25, XY CHEST XRAY 1 VIEW on DOS: 07/18/25, XY CHEST PORTABLE on DOS: 07/18/25 FINDINGS: Lines and Tubes: None Lungs: Increased interstitial prominence. This may represent pulmonary vascular congestion and/or viral pneumonia. Pleura: Trace left pleural effusion. No pneumothorax. Cardiomediastinal contours: Unremarkable Bones: Unremarkable IMPRESSION: Increased interstitial prominence. This may represent pulmonary vascular congestion and/or viral pneumonia. Trace left pleural effusion.
--- NOTE | 2025-07-21 13:05 | DVHPN2 ---
Progress Note - Dictate Date Seen: Jul 21, 2025 Medical Necessity Reason Pt with a Central, PICC or Fol: Yes The following are medically ne: Luna Catheter vital signs Vital Sign Date Time Temp Pulse Resp B/P (MAP) Pulse Ox O2 Delivery O2 Flow Rate FiO2 07/21/25 11:09 79 16 100 07/21/25 11:03 Room Air 0.0 07/21/25 11:03 21 07/21/25 10:20 125/82 07/21/25 05:00 98.3 98.3 Total Intake and Output 07/20/25 07/20/25 07/21/25 14:59 22:59 06:59 Intake Total 800 ml 500 ml 50 ml Output Total 600 ml 325 ml Balance 800 ml -100 ml -275 ml medications Current Medications Medications Dose Ordered Sig/Juan Route Start Time Stop Time Status Last Admin Dose Admin Nitroglycerin 0.4 mg Q5MINP PRN SL 07/19/25 01:00 Ondansetron HCl 4 mg Q6HPRN PRN IV 07/19/25 01:00 Albuterol 2.5 mg Q6HR NEB 07/19/25 06:00 07/21/25 11:03 2.5 MG Ipratropium [place] 0.5 mg Q6HP NEB 07/19/25 06:00 07/21/25 11:03 0.5 MG Ceftriaxone Sodium 50 ml @ 100 mls/hr DAILY IV 07/19/25 10:00 07/21/25 10:20 100 MLS/HR Cefazolin Sodium 50 ml @ 100 mls/hr Q8HR IV 07/19/25 21:00 Hold Morphine Sulfate 2 mg Q30M PRN IV 07/19/25 17:45 Morphine Sulfate 1 mg Q4HPRN PRN IV 07/19/25 17:45 07/21/25 05:15 1 MG Azithromycin 250 ml @ 125 mls/hr DAILY IV 07/21/25 10:00 07/21/25 10:21 125 MLS/HR Enoxaparin Sodium 40 mg DAILY SC 07/21/25 10:00 Metoprolol Tartrate 50 mg BID PO 07/20/25 22:00 07/21/25 10:20 50 MG Magnesium Sulfate/ Dextrose 100 ml @ 100 mls/hr Q1HR IV 07/21/25 13:00 07/21/25 14:59 laboratory and microbiology Laboratory Tests 07/21/25 09:44 Test 07/21/25 09:44 Range/Units Serum Glucose 138 H 74-106 mg/dL Assessment/Plan Impression Acute hypoxemic respiratory failure Left pleural effusions Right hip fracture Pneumonia Patient seen and examined Events Low oxygen requirements On room air No distress S/p thoracentesis Fluid analysis consistent with partially treated parapneumonic effusions on abx Labs and imaging reviewed Management Supplemental oxygen as needed Titrate to maintain sats 90% or above Incentive spirometry Continue antibiotics F/u cultures Bronchodilators Monitor renal function Monitor electrolytes Supplement as needed Pain control Avoid oversedation DVT prophylaxis Plan discussed with: Patient WILLIAM MADERA MD Jul 21, 2025 13:05
[2025-07-21] MEDS: POTASSIUM EFFERVESENT TAB 25 MEQ PO ONE (13:46)
[2025-07-21] MEDS: MAGNESIUM SULFATE 1GM/100ML 100 ML IV SCH (13:48)
--- NOTE | 2025-07-21 14:10 | DVHPN2 ---
Progress Note Date Seen: Jul 21, 2025 Resident Creating Document: DEANDRE MOORE RESIDENT Medical Necessity Reason Pt with a Central, PICC or Fol: Yes The following are medically ne: Luna Catheter Subjective Patient reports: No new complaints, Feels better Other Systems: Patient seen and examined by myself today in round with the medicine resident, I agree with his assessment and plan Objective vital signs Vital Sign Date Time Temp Pulse Resp B/P (MAP) Pulse Ox O2 Delivery O2 Flow Rate FiO2 07/21/25 13:48 78 17 152/63 07/21/25 13:00 97.6 97.6 07/21/25 11:09 100 07/21/25 11:03 Room Air 0.0 07/21/25 11:03 21 Total Intake and Output 07/20/25 07/20/25 07/21/25 15:00 23:00 07:00 Intake Total 800 ml 500 ml 50 ml Output Total 600 ml 325 ml Balance 800 ml -100 ml -275 ml medications Current Medications Medications Dose Ordered Sig/Juan Route Start Time Stop Time Status Last Admin Dose Admin Nitroglycerin 0.4 mg Q5MINP PRN SL 07/19/25 01:00 Ondansetron HCl 4 mg Q6HPRN PRN IV 07/19/25 01:00 Albuterol 2.5 mg Q6HR NEB 07/19/25 06:00 07/21/25 11:03 2.5 MG Ipratropium [place] 0.5 mg Q6HP NEB 07/19/25 06:00 07/21/25 11:03 0.5 MG Ceftriaxone Sodium 50 ml @ 100 mls/hr DAILY IV 07/19/25 10:00 07/21/25 10:20 100 MLS/HR Cefazolin Sodium 50 ml @ 100 mls/hr Q8HR IV 07/19/25 21:00 Hold Morphine Sulfate 2 mg Q30M PRN IV 07/19/25 17:45 Morphine Sulfate 1 mg Q4HPRN PRN IV 07/19/25 17:45 07/21/25 13:48 1 MG Azithromycin 250 ml @ 125 mls/hr DAILY IV 07/21/25 10:00 07/21/25 10:21 125 MLS/HR Enoxaparin Sodium 40 mg DAILY SC 07/21/25 10:00 Metoprolol Tartrate 50 mg BID PO 07/20/25 22:00 07/21/25 10:20 50 MG Magnesium Sulfate/ Dextrose 100 ml @ 100 mls/hr Q1HR IV 07/21/25 13:00 07/21/25 14:59 07/21/25 13:48 100 MLS/HR Examination GENERAL: Alert and oriented x 2. No acute distress. EYES: PERRL, EOMI. Anicteric. HENT: Moist mucous membranes. LUNGS: Clear to auscultation bilaterally. CARDIOVASCULAR: Regular rate and rhythm. ABDOMEN: Soft, non-tender and non-distended. EXTREMITIES: RLE TTP with shortening. NEUROLOGIC: No focal neurological deficits. SKIN: Warm, dry. laboratory and microbiology Laboratory Tests 07/21/25 09:44 Test 07/21/25 09:44 Range/Units Serum Glucose 138 H 74-106 mg/dL Microbiology Date/Time Source Procedure Growth Status 07/19/25 18:00 Nose MRSA Screen - Final Complete 07/19/25 12:05 Pleural Fluid Gram Stain - Final Resulted 07/19/25 12:05 Pleural Fluid Body Fluid Culture - Preliminary No growth Resulted Labs and/or images reviewed: Labs reviewed by me, Image(s) reviewed by me Problem List/Assessment/Plan Problem List/Assessment/Plan CKD stage 2 Encephalopathy Hypomagnesemia and hypokalemia Metabolic acidosis Proteinuria in the range of 2 g Closed right hip fracture s/p ORIF Pneumonia, Acute hypoxic respiratory failure. Left pleural effusion. Compressive atelectasis. Enlarged pulmonary trunk. Lymphadenopathy, Axillary. Plan/ Monitor kidney function and urine output improved Monitor lab Assess fluid status daily Blood pressure management replenish potassium and magnesium Avoid nephrotoxic agents will follow IVF D5W 1/2 NS with a bicarbonate discontinue Urine studies Kidney ultrasound, parathyroid hormone and vitamin-D NS 100 mL bolus Rest of management as per primary team Case discussed with the Dr. Johnson Plan discussed with: Patient, Other (rn) My Orders My Orders Orders - DEANDRE MOORE Procedure Category Date Status Time Magnesium Sulfate PHA 07/21/25 In Process 1gm/100ml 13:00 DEANDRE MOORE Jul 21, 2025 14:10 DARWIN JOHNSON MD Jul 21, 2025 16:47
--- NOTE | 2025-07-21 17:50 | DVH ---
CLINICAL HISTORY: ALOC / pupil dilation TECHNIQUE: Helical scanning was performed of the head from the skull base to the vertex. Multiplanar reconstructions were performed. This exam was performed according to our departmental dose optimization program. Up-to-date CT equipment and radiation dose reduction techniques are utilized as appropriate. CTDI 51 DLP 1003 COMPARISON: CT HEAD WITHOUT CONTRAST on DOS: 07/18/25 FINDINGS: There is no evidence for acute intracranial hemorrhage, mass, mass effect, or extra-axial fluid collection. There is no hydrocephalus or midline shift. There is no effacement of the basal subarachnoid cisterns. There is a small area of new hypoattenuation in the right parietal lobe with loss of the forrest-white matter differentiation. There is mild brain volume loss and minimal chronic small vessel ischemic change. The imaged paranasal sinuses are clear. IMPRESSION: Small acute right parietal lobe infarct.
[2025-07-21 18:07] LABS: Free T3 1.35 pg/mL (2.3-4.2); Free T4 (Free Thyroxine) 1.32 ng/dL (0.89-1.76)
--- NOTE | 2025-07-21 18:35 | BSKYNEURO ---
[facility] Note # Demographics Consult Type: Acute Stroke Level 1 (0-4.5 hrs) Patient Location: Inpatient First Name: julita worthy Last Name: robby Date of : 1940 Age: 84 Gender: Female Facility: [facility] Time of Initial Page (): 07/21/2025 18:10 First Contact with Site (): 07/21/2025 18:10 # HPI History: 84 year old female that I was requested to evaluate for acute stroke. The patient just had hip surgery on 07/19/2025. She developed Afib after the surgery. They put her on blood thinners. Today the symptoms started around 14:00 when they went to hang a second bag of magnesium. She appeared to be out of it or exhaustive and was noted to have a pupillary change. CT showed early ischemic changes in the right parietal lobe. # Scores Time of exam and NIHSS (): 07/21/2025 18:23 Level of Consciousness 1a: [0] = Alert; keenly responsive LOC Questions 1b: [1] = Answers one correctly LOC Commands 1c: [0] = Performs both tasks correctly Best Gaze 2: [0] = Normal Visual 3: [0] = No visual loss Facial Palsy 4: [0] = Normal symmetrical movements Motor Arm Left 5a: [1] = Drift Motor Arm Right 5b: [0] = No drift Motor Leg Left 6a: [0] = No drift Motor Leg Right 6b: [0] = No drift Limb Ataxia 7: [0] = Absent Sensory 8: [0] = Normal Best Language 9: [0] = No aphasia Dysarthria 10: [1] = [id number] dysarthria Extinction and Inattention 11: [1] = Visual, tactile, auditory, spatial, or personal inattention NIHSS Total: 4 # Data Time Head CT personally read by me (): 07/21/2025 18:[address]: - no bleed early ischemic changes in the right parietal lobe # Assessment Impression: - Ischemic Stroke (Acute) Presentation concerning for acute stroke, with exam findings concerning for possible MCA occlusion. She is not a candidate for TNK given recent hip replacement from hip fracture. # Plan Thrombolytic/Intervention: Possible IA candidate Thrombolytic Exclusion (< 3 hour window): - major surgery < 14 days Possible IA Candidate: - CTA pending Target Blood Pressure: - SBP < 180 - DBP < 105 Imaging: (urgency: STAT): - CT Angiogram Head - CT Angiogram Neck Other: - If patient has any neurological deterioration please call me back immediately Additional Recommendations: SUMMARY: == proceed with stat CTA of the head and neck to evaluate for possible MCA occlusion. There is not a striking motor change, so I suspect that if present, will be too distal for thrombectomy Disposition: continue admission # Logistics Attestation of consult completion: The patient is located at: [facility]. Facility staff participated in the visit. I performed this telemedicine visit from my offsite office utilizing interactive 2 way audio and visual telecommunication technology at the request of the onsite inpatient provider. Consent: Verbal consent was obtained from the patient and/or family for this encounter. Total time spent in telemedicine encounter: I spent 25 minutes reviewing clinical data and/or imaging, obtaining history, examining the patient, communicating with the onsite care team, and in preparation of this report. Critical Care time: 20 minutes of this encounter were critical care time. Due to a high probability of clinically significant, life-threatening neurologic deterioration, the patient required my highest level of preparedness to intervene emergently. I spent this critical care time managing the patient in conjunction with on-site providers who requested my consultation. In addition to the above, this critical care time included recommendation and review of studies, including imaging; arranging an urgent treatment and management plan w ith on-site providers; evaluation of patient's response to treatment; and documentation. This critical care time was performed to assess and manage the high probability of imminent, life-threatening deterioration that could result in neurologic catastrophe. # Demographics First Name: julita worthy Last Name: robby Facility: [facility] Yes (acute stroke) SREEKANTH RUSSELL MD Jul 21, 2025 18:35
[2025-07-21 19:15] LABS: Hematocrit 30.6 % (36.0-46.0); Hemoglobin 10.2 g/dL (12.2-16.2); Mean Corpuscular Hemoglobin 31.3 pg (28.0-32.0); Mean Corpuscular Volume 93.5 fL (80.0-100.0)
[2025-07-21 19:35] LABS: Chloride 106 mmol/L (98-107)
[2025-07-21 19:36] LABS: Anion Gap 11 (5-15); Carbon Dioxide 29 mmol/L (20-31)
[2025-07-21 19:37] LABS: Calcium 8.8 mg/dL (8.7-10.4)
[2025-07-21 19:42] LABS: BUN/Creatinine Ratio 20.7 (10.0-20.0); Blood Urea Nitrogen 12 mg/dL (9-23); Magnesium 2.3 mg/dL (1.6-2.6)
[2025-07-21] MEDS: IOHEXOL 350 MG/ML 100ML IJ ONE (19:48)
[2025-07-21 19:49] LABS: Glucose 118 mg/dL (74-106); Potassium 3.2 mmol/L (3.5-5.1); Sodium 146 mmol/L (136-145)
--- NOTE | 2025-07-21 19:53 | DVH ---
CLINICAL HISTORY: stroke TECHNIQUE: CT angiogram of the head and neck was performed without and with intravenous contrast. 3D MIP reconstructed images were created and archived on the PACS system. This exam was performed according to our departmental dose optimization program. Up-to-date CT equipment and radiation dose reduction techniques are utilized as appropriate. CTDI 21.4 DLP 699 COMPARISON: CT HEAD WITHOUT CONTRAST on DOS: 07/21/25, CT HEAD WITHOUT CONTRAST on DOS: 07/18/25 FINDINGS: CTA NECK: The common carotid, internal carotid, and vertebral arteries are patent with no evidence for high grade narrowing, occlusion, and dissection. There is no significant narrowing at the carotid bulbs per NASCET criteria. The imaged left lung demonstrates a pleural effusion. The right vertebral artery is dominant. CTA HEAD: There is no definite large vessel occlusion. The bilateral intracranial internal carotid arteries at the cavernous segments and beyond demonstrate atherosclerotic change resulting in multifocal moderate and severe stenoses. There is severe diffuse narrowing of the bilateral M1 segments of the middle cerebral arteries. The bilateral anterior cerebral arteries appear grossly unremarkable. The bilateral vertebral and basilar arteries are patent. The basilar artery is of small caliber vessel. The bilateral posterior cerebral arteries appear diffusely narrowed throughout. IMPRESSION: Severe diffuse narrowing of the bilateral M1 segments of the middle cerebral artery and posterior cerebral arteries. Differential includes atherosclerosis and vasculitis. Recommend brain MRI with and without IV contrast to exclude basilar meningitis. Moderate and severe multifocal stenoses of the distal intracranial internal carotid artery secondary to atherosclerosis.
[2025-07-21 19:57] LABS: INR 0.98 (0.9-1.15); Partial Thromboplastin Time 47.2 SEC (24.5-34.5); Prothrombin Time 10.4 sec (9.3-11.8)
[2025-07-21 20:47] LABS: Total Cells Counted 100.0 (100)
[2025-07-21 20:48] LABS: Anisocytosis Marked
--- NOTE | 2025-07-21 21:38 | DVHINCON2 ---
Date of service: Jul 21, [address] Schroeder Reason for Consultation CVA History of Present Illness Ms. Calero is a 84 years old female with a history of pneumonia, he was brought to the [facility] on 07/18/2025 with a chief company of ground level fall and right hip pain, in the hospital, the patient was found to have right hip intertrochanter fracture and she received surgical repair on 07/19/2025. At that time, she is awake, she is oriented to person, likely to place as well, her speech is very slurry, not able to provide history, she is not cooperative with physical examination On 07/21/2025, the patient developed slurred speech, left-sided weakness, pupil dilatation, follow CP brain scan showed evidence suggestive of a new small right parietal lobe infarct [phone] no answer [phone], no answer. Yu CBC, 07/19/2025: Compensated metabolic acidosis WBC/HB/PLT/MCV, 07/21/25: 12.4/10.2/216/93 Na 07/21/2025: 147, 146 Liver function tests, 07/21/2025: Unremarkable Echocardiogram, 07/19/2025: imited difficult study lvef 75% hyperdynamic LV mild LVH noted normal rv function left atrium enlarged no significant aortic stenosis, HOWEVER THERE IS A LARGE INTRACAVITARY VS LVOT GRADIENT OF >130 MMHG, THIS CAN BE SEEN IN HOCM trace to mild mitral regurg L sided pleural effusion noted CT head 07/18/2025: No acute intracranial abnormality CT head, 07/21/2025: Small acute right parietal lobe infarct CTA head, neck, 07/21/2025: Severe diffuse narrowing of the bilateral M1 se gments of the middle cerebral artery and posterior cerebral arteries. Differential includes atherosclerosis and vasculitis. Recommend brain MRI with and without IV contrast to exclude basilar meningitis. Moderate and severe multifocal stenoses of the distal intracranial internal carotid artery secondary to atherosclerosis Past Medical History Pneumonia Past Surgical History Right hip fracture repair on 07/19/2025 Family History Unobtainable Social History Unobtainable Allergies: Coded Allergies: NO KNOWN ALLERGIES (Unverified , 04/16/25) Home Meds Active Scripts Levofloxacin Hemihydrate (LEVOFLOXACIN) 500 Mg Tab, 500 MG PO DAILY for 10 Days, #10 MG Prov:YASMEEN,CORRIE MD 07/18/25 Cephalexin Monohydrate (Cephalexin) 500 Mg Cap, 1 CAP PO TID, #21 CAP Prov:MENDY BURGOS 04/16/25 Current Medications Current Medications Medications (Trade) Dose Ordered Sig/Juan Route PRN Reason Start Time Stop Time Status Last Admin Azithromycin 250 ml @ 125 mls/hr DAILY IV 07/21/25 10:00 07/21/25 10:21 Enoxaparin Sodium (Lovenox) 40 mg DAILY SC 07/21/25 10:00 Metoprolol Tartrate (Lopressor Tablet) 25 mg BID PO 07/20/25 22:00 07/20/25 15:45 DC Metoprolol Tartrate (Lopressor Tablet) 50 mg BID PO 07/20/25 22:00 07/21/25 10:20 Magnesium Sulfate/ Dextrose 100 ml @ 100 mls/hr Q1HR IV 07/21/25 13:00 07/21/25 14:59 DC 07/21/25 15:34 Review of Systems Unobtainable Vital Signs Vital Signs Date Time Temp Pulse Resp B/P (MAP) Pulse Ox O2 Delivery O2 Flow Rate FiO2 07/21/25 16:31 97.5 76 16 171/56 (94) 91 97.5 07/21/25 11:03 Room Air 0.0 07/21/25 11:03 21 Physical Exam GENERAL EXAM: General: the patient is well developed and nourished. No acute distress. HEENT: Normocephalic, neck is supple, no carotid bruits. No mass. RESPIRATORY: Normal respiratory effort with symmetrical lung expansion. Lungs clear to auscultation. CARDIOVASCULAR: Regular rate and rhythm with no murmurs. S1, S2. ABDOMEN: Soft, nontender, normal bowel sound NEUROLOGICAL: MENTAL STATUS: Subjective SPEECH, LANGUAGE, HIGHER CORTICAL FUNCTION: no aphasia but she has dysathria. CRANIAL NERVES: #2: Intact visual gonzalez to confrontation. #3,4,6: She closed eyes tightly during my physical examination. EOMs full and conjugate. #5: Facial sensation intact in all three divisions bilaterally. Mandibular strength intact. #7: Facial muscles symmetrical and strength intact. #8: Hearing grossly normal to voice. #9,10: Deferred #11: Deferred, but looks fine #12: Deferred SENSATION: Sensation to touch and pinprick is fine MOTOR: Normal tone in the upper and lower extremity. Normal muscle bulk. No fasciculations. No abnormal movements or posturing. He moves the arms and legs a little bit, less in the right leg REFLEXES: Deep tendon reflexes are symmetrical. No pathological reflexes. CEREBELLAR/COORDINATION: Deferred GAIT/STATION: deferred. Labs/Diagnostic Data Labs Test 07/21/25 18:13 07/21/25 09:44 07/20/25 13:45 07/20/25 12:15 Range/Units White Blood Count 12.4 H 4.4-10.8 10^3/uL Red Blood Count 3.27 L 4.0-5.20 10^6/uL Hemoglobin 10.2 L 12.2-16.2 g/dL Hematocrit 30.6 L 36.0-46.0 % Mean Corpuscular Volume 93.5 80.0-100.0 fL Mean Corpuscular Hemoglobin 31.3 28.0-32.0 pg Mean Corpuscular Hemoglobin Concent 33.4 32.0-36.0 g/dL Red Cell Distribution Width 15.3 H 11.8-14.3 % Platelet Count 216 140-450 10^3/uL Mean Platelet Volume 8.0 6.9-10.8 fL Neutrophils (%) (Auto) 37.0-80.0 % Lymphocytes (%) (Auto) 10.0-50.0 % Monocytes (%) (Auto) 0.0-12.0 % Eosinophils (%) (Auto) 0.0-7.0 % Basophils (%) (Auto) 0.0-2.0 % Neutrophils # (Auto) 1.6-8.6 10 ^3/uL Lymphocytes # (Auto) 0.4-5.4 10 ^3/uL Monocytes # (Auto) 0-1.3 10 ^3/uL Differential Total Cells Counted 100.0 100 Neutrophils % (Manual) 58.0 37.0-80.0 Band Neutrophils % (Manual) 6.0 Lymphocytes % (Manual) 4.0 L 10.0-50.0 Monocytes % (Manual) 12.0 0-12 Eosinophils % (Manual) 19.0 H 0-7 Basophils % (Manual) 0 0.0-2.0 Metamyelocytes % (manual) 1.0 Myelocytes % (Manual) 0 Promyelocytes % (Manual) 0 Blast Cells % (Manual) 0 Reactive Lymphocytes 0 Platelet Estimate Adequate Anisocytosis (manual) Marked Frida Cells Few Prothrombin Time 10.4 9.3-11.8 sec Prothrombin Time INR 0.98 0.9-1.15 Activated Partial Thromboplast Time 47.2 H 24.5-34.5 SEC Sodium Level 146 H 136-145 mmol/L Potassium Level 3.2 L 3.5-5.1 mmol/L Chloride Level 106 98-107 mmol/L Carbon Dioxide Level 29 20-31 mmol/L Anion Gap 11 5-15 Blood Urea Nitrogen 12 9-23 mg/dL Creatinine 0.58 0.550-1.02 mg/dL Glomerular Filtration Rate Calc 89 >90 mL/min BUN/Creatinine Ratio 20.7 H 10.0-20.0 Serum Glucose 118 H 74-106 mg/dL Calcium Level 8.8 8.7-10.4 mg/dL Magnesium Level 2.3 1.6-2.6 mg/dL Total Bilirubin 0.7 0.2-1.0 mg/dL Aspartate Amino Transferase (AST) 36 13-40 U/L Alanine Aminotransferase (ALT) 16 7-40 U/L Alkaline Phosphatase 57 46-116 U/L Total Protein 6.4 5.7-8.2 g/dL Albumin 3.2 3.2-4.8 g/dL Thyroid Stimulating Hormone (TSH) 3.34 0.55-4.78 uIU/mL Free Thyroxine (T4) Calculated 1.32 0.89-1.76 ng/dL Free Triiodothyronine (T3) pg/mL 1.35 L 2.3-4.2 pg/mL Lactic Acid Level 1.5 0.4-2.0 mmol/L Troponin I High Sensitivity 91 *H </=34 ng/L Urine Creatinine 84.18 30.0-125.0 mg/dL Urine Protein/Creatinine Ratio 1.93 Urine Sodium 42 40-220 mmol/L Urine Total Protein 162.6 H 1-14 mg/dL Test 07/20/25 10:43 07/19/25 20:13 07/19/25 12:05 07/19/25 09:35 Range/Units D-Dimer, Quantitative 3.59 H 0.0-0.49 mg/L FEU B-Type Natriuretic Peptide 614.88 0-100 pg/mL Vitamin D 25-Hydroxy 81.4 30.0-100 ng/mL Parathyroid Hormone (Intact) 28.9 18.4-80.1 pg/mL Urine Color Yellow Yellow Urine Clarity Clear Clear Urine pH 5.5 5.0-9.0 Urine Specific Mitchell 1.029 1.001-1.035 Urine Protein 1+ H Negative Urine Ketones 3+ H Negative Urine Blood 3+ H Negative /uL Urine Nitrite Negative Negative Urine Bilirubin Negative Negative Urine Urobilinogen Normal Negative mg/dL Urine Leukocyte Esterase Negative Negative /uL Urine RBC 271 0 - 4 /hpf Urine Microscopic WBC 11 H 0-5 /HPF Urine Squamous Epithelial Cells Few <5 /hpf Urine Bacteria Few H None Seen /hpf Urine Hyaline Casts Few 0 - 2 /lpf Urine Mucus Few None Seen Urine Yeast (Budding) Occasional None Seen /hpf Urine Glucose Normal Normal mg/dL Body Fluid Source Pleural fluid Body Fluid pH 8.0 Body Fluid WBC (Manual) 881 H 0-200 CUMM Body Fluid RBC (Manual) 921 0-2000 CUMM Body Fluid Mononuclear Cells 48 % Body Fluid Polymorphonuclear Cells 52 H 0-25 % Body Fluid Glucose 96 . mg/dL Body Fluid Total Protein 4.2 . g/dL Body Fluid Lactate Dehydrogenase 210 . IU/L Blood Gas Specimen Type Arterial Blood Gas Sample Site Left radial Blood Gas Patient Temperature 37.0 Arterial Blood Date Drawn [id number] Arterial Blood pH 7.399 7.350-7.450 Arterial Blood Partial Pressure CO2 28.1 L 32.0-45.0 mmHg Arterial Blood Partial Pressure O2 67.3 L 83.0-108.0 mmHg Arterial Blood HCO3 17.0 L 21.0-28.0 mmol/L Arterial Blood Oxygen Saturation 92.4 L 94.0-98.0 % Arterial Blood Base Excess -6.6 L -2.0-3.0 mmol/L Arterial Blood Oxyhemoglobin 91.8 L 94.0-98.0 % Arterial Blood Carboxyhemoglobin 0.3 L 0.5-1.5 % Arterial Blood Methemoglobin 0.4 0.0-1.5 % Arterial Blood Deoxyhemoglobin 7.5 H 0.0-5.0 % Luis Test Yes Blood Gas Total Hemoglobin 11.60 L 12.0-16.0 g/dL Blood Gas Modality Room air FiO2 % 21.0 Test 12/1/25 04:40 07/18/25 22:02 Range/Units Eosinophils # (Auto) 6.5 H 0-0.8 10 ^3/uL Basophils # (Auto) 0 0-0.2 10 ^3/uL Nucleated Red Blood Cells 0.1 % Poikilocytosis (manual) Slight Ovalocytes Few Microbiology Date/Time Source Procedure Growth Status 07/19/25 18:00 Nose MRSA Screen - Final Complete 07/19/25 12:05 Pleural Fluid Gram Stain - Final Resulted 07/19/25 12:05 Pleural Fluid Body Fluid Culture - Preliminary No growth Resulted Assessment Acute left-sided weakness, slurred speech Abnormal CT brain scan Rule out acute stroke Metabolic encephalopathy Metabolic acidosis Right hip fracture status post surgical repair Plan/Recommendation Monitoring Supportive treatment Telemetry Lipitor profile MRI head Aspirin 81 mg daily Plavix 75 mg daily for 21 days Lipitor 20 mg daily for now IV antibiotics Stabilize blood pressure with labetalol DVT prophylaxis/Lovenox Orthopedic on case Cardiology on case Pulmonology on case Nephrology on case More recommendation per clinical course Prognosis: Poor This medical document was created using an electronic medical record system with [employer] computerized dictation system. Although this document has been carefully reviewed, there may still be some phonetic and typographical errors. These areas are purely typographical due to imperfections of the software programs, and do not reflect any compromise in the patient's medical care. Plan discussed with: Other VICK CHÁVEZ MD Jul 21, 2025 21:38
[2025-07-21] MEDS ORDERED: LORazepam 2MG/ML-1ML VIAL IV PRN (22:00)
[2025-07-21] MEDS: CLOPIDOGREL BISULFATE 75 MG TAB PO ONE (22:00)
[2025-07-21 22:30] LABS: Triglycerides 97 mg/dL (< 150)
[2025-07-21] MEDS ORDERED: LABETALOL HCL 20 MG/4 ML VL IV PRN (22:30)
[2025-07-21 22:32] LABS: Cholesterol 160 mg/dL (< 200); HDL Cholesterol 54 mg/dL (40-59)
[2025-07-22] VITALS (12 sets, daily range): BP systolic 135–167; BP diastolic 51–93; PULSE 70–103; RESP 16–18; TEMP 97.9–98.6; O2SAT 93–100
[2025-07-22] MEDS ORDERED: SODIUM CHLORIDE 0.9% 1,000 ML IV SCH (00:30)
--- NOTE | 2025-07-22 01:08 | DVHPN2 ---
Progress Note - Dictate Date Seen: Jul 21, 2025 Medical Necessity Reason Pt with a Central, PICC or Fol: Yes The following are medically ne: Luna Catheter Subjective Patient was seen and evaluated in follow up. Patient complains of right hip pain. NA 147, K 3, CA 8.6. Chest x-ray showed increased interstitial prominence and trace left pleural effusion. Telemetry reviewed. vital signs Vital Sign Date Time Temp Pulse Resp B/P (MAP) Pulse Ox O2 Delivery O2 Flow Rate FiO2 07/21/25 13:48 78 17 152/63 07/21/25 13:00 97.6 97.6 07/21/25 11:09 100 07/21/25 11:03 Room Air 0.0 07/21/25 11:03 21 Total Intake and Output 07/20/25 07/20/25 07/21/25 15:00 23:00 07:00 Intake Total 800 ml 500 ml 50 ml Output Total 600 ml 325 ml Balance 800 ml -100 ml -275 ml medications Current Medications Medications Dose Ordered Sig/Juan Route Start Time Stop Time Status Last Admin Dose Admin Nitroglycerin 0.4 mg Q5MINP PRN SL 07/19/25 01:00 Ondansetron HCl 4 mg Q6HPRN PRN IV 07/19/25 01:00 Albuterol 2.5 mg Q6HR NEB 07/19/25 06:00 07/21/25 11:03 2.5 MG Ipratropium [place] 0.5 mg Q6HP NEB 07/19/25 06:00 07/21/25 11:03 0.5 MG Ceftriaxone Sodium 50 ml @ 100 mls/hr DAILY IV 07/19/25 10:00 07/21/25 10:20 100 MLS/HR Cefazolin Sodium 50 ml @ 100 mls/hr Q8HR IV 07/19/25 21:00 Hold Morphine Sulfate 2 mg Q30M PRN IV 07/19/25 17:45 Morphine Sulfate 1 mg Q4HPRN PRN IV 07/19/25 17:45 07/21/25 13:48 1 MG Azithromycin 250 ml @ 125 mls/hr DAILY IV 07/21/25 10:00 07/21/25 10:21 125 MLS/HR Enoxaparin Sodium 40 mg DAILY SC 07/21/25 10:00 Metoprolol Tartrate 50 mg BID PO 12/2/25 22:00 07/21/25 10:20 50 MG Magnesium Sulfate/ Dextrose 100 ml @ 100 mls/hr Q1HR IV 07/21/25 13:00 07/21/25 14:59 07/21/25 13:48 100 MLS/HR objective GENERAL: Alert and oriented x 3. No acute distress. EYES: PERRL, EOMI. Anicteric. HENT: Moist mucous membranes. LUNGS: Clear to auscultation bilaterally. CARDIOVASCULAR: Regular rate and rhythm. ABDOMEN: Soft, non-tender and non-distended. EXTREMITIES: RLE TTP with shortening. NEUROLOGIC: No focal neurological deficits. SKIN: Warm, dry. laboratory and microbiology Laboratory Tests 07/21/25 09:44 Test 07/21/25 09:44 Range/Units Serum Glucose 138 H 74-106 mg/dL Problem List Closed right hip fracture. Pneumonia, Acute hypoxic respiratory failure. Left pleural effusion. Compressive atelectasis. Enlarged pulmonary trunk. Lymphadenopathy, Axillary. Metabolic acidosis. Assessment/Plan Continued all current supportive medical care. Aspirin, Plavix, Metoprolol. IV antibiotics as ordered. DVT prophylactics. Morphine for pain management. Nitro SL. Additional plan as per the hospital course. Plan discussed with: Patient KHADAR MAY MD Jul 21, 2025 14:36
[2025-07-22] MEDS: SODIUM CHLORIDE 0.9% 1,000 ML IV SCH (01:26)
[2025-07-22 07:06] LABS: Chloride 106 mmol/L (98-107)
[2025-07-22 07:07] LABS: Anion Gap 15 (5-15); Carbon Dioxide 26 mmol/L (20-31)
[2025-07-22 07:08] LABS: Calcium 8.4 mg/dL (8.7-10.4); Potassium 2.6 mmol/L (3.5-5.1); Sodium 147 mmol/L (136-145)
[2025-07-22 07:12] LABS: BUN/Creatinine Ratio 21.7 (10.0-20.0); Blood Urea Nitrogen 10 mg/dL (9-23); Glucose 99 mg/dL (74-106)
[2025-07-22 07:27] LABS: Hematocrit 26.6 % (36.0-46.0); Hemoglobin 9.2 g/dL (12.2-16.2); Mean Corpuscular Hemoglobin 32.0 pg (28.0-32.0); Mean Corpuscular Volume 92.6 fL (80.0-100.0)
[2025-07-22] MEDS ORDERED: ASPI-325 PO (07:40)
[2025-07-22] MEDS ORDERED: MET25T PO (07:40)
[2025-07-22] MEDS ORDERED: CLOP75TA70 PO (07:40)
[2025-07-22] MEDS ORDERED: ATOR20TA PO (07:40)
[2025-07-22 08:13] LABS: Total Cells Counted 100.0 (100)
[2025-07-22] MEDS: hydrALAZINE HCL 20 MG/ML VL IV ONE (08:14)
[2025-07-22] MEDS ORDERED: APIX5TAB PO (09:42)
--- NOTE | 2025-07-22 09:52 | DVHPN2 ---
Progress Note - Dictate Date Seen: Jul 22, 2025 Medical Necessity Reason Pt with a Central, PICC or Fol: Yes The following are medically ne: Luna Catheter Subjective Ms. Calero is a 84 years old female with a history of pneumonia, he was brought to the [facility] on 07/18/2025 with a chief company of ground level fall and right hip pain, in the hospital, the patient was found to have right hip intertrochanter fracture and she received surgical repair on 07/19/2025. I have seen and examined the patient, I have discussed with her nurse, and other medical staff, I have reviewed the MRI films. She is awake, oriented to person only, he follows verbal commands, she may have left-sided neglect or homonymous hemianopsia She keeps having atrial fibrillation CBC, 07/19/2025: Compensated metabolic acidosis WBC/HB/PLT/MCV, 07/21/25: 12.4/10.2/216/93 Na 07/21/2025: 147, 146, 07/22/2025: 147 Liver function tests, 07/21/2025: Unremarkable TG/HDL/LDL/HDL, 07/21/2025: 97/116/68/54 EKG, 07/20/2025: AFib Echocardiogram, 07/19/2025: imited difficult study lvef 75% hyperdynamic LV mild LVH noted normal rv function left atrium enlarged no significant aortic stenosis, HOWEVER THERE IS A LARGE INTRACAVITARY VS LVOT GRADIENT OF >130 MMHG, THIS CAN BE SEEN IN HOCM trace to mild mitral regurg L sided pleural effusion noted CT head 07/18/2025: No acute intracranial abnormality CT head, 07/21/2025: Small acute right parietal lobe infarct CTA head, neck, 07/21/2025: Severe diffuse narrowing of the bilateral M1 segments of the middle cerebral artery and posterior cerebral arteries. Differential includes atherosclerosis and vasculitis. Recommend brain MRI with and without IV contrast to exclude basilar meningitis. Moderate and severe multifocal stenoses of the distal intracranial internal carotid artery secondary to atherosclerosis MRI head, 07/22/25: Multiple right hemispheres strokes (reports pending) vital signs Vital Sign Date Time Temp Pulse Resp B/P (MAP) Pulse Ox O2 Delivery O2 Flow Rate FiO2 07/22/25 06:53 97 17 99 07/22/25 06:44 Nasal Cannula 2.0 07/22/25 06:44 28 07/22/25 05:00 98.6 167/93 (117) 98.6 Total Intake and Output 07/21/25 07/21/25 07/22/25 15:00 23:00 07:00 Intake Total 520 ml 200 ml 0 ml Output Total 150 ml 600 ml Balance 520 ml 50 ml -600 ml medications Current Medications Medications Dose Ordered Sig/Juan Route Start Time Stop Time Status Last Admin Dose Admin Nitroglycerin 0.4 mg Q5MINP PRN SL 07/19/25 01:00 Ondansetron HCl 4 mg Q6HPRN PRN IV 07/19/25 01:00 Albuterol 2.5 mg Q6HR NEB 07/19/25 06:00 07/22/25 06:44 2.5 MG Ipratropium [place] 0.5 mg Q6HP NEB 07/19/25 06:00 07/22/25 06:44 0.5 MG Ceftriaxone Sodium 50 ml @ 100 mls/hr DAILY IV 07/19/25 10:00 07/21/25 10:20 100 MLS/HR Cefazolin Sodium 50 ml @ 100 mls/hr Q8HR IV 07/19/25 21:00 Hold Morphine Sulfate 2 mg Q30M PRN IV 07/19/25 17:45 Morphine Sulfate 1 mg Q4HPRN PRN IV 07/19/25 17:45 07/21/25 13:48 1 MG Azithromycin 250 ml @ 125 mls/hr DAILY IV 07/21/25 10:00 07/21/25 10:21 125 MLS/HR Metoprolol Tartrate 50 mg BID PO 07/20/25 22:00 07/21/25 10:20 50 MG Lorazepam 1 mg ONCE PRN IV 07/21/25 22:00 Labetalol HCl 10 mg [id number] PRN IV 07/21/25 22:30 Sodium Chloride 1,000 ml @ 50 mls/hr Q20H IV 07/22/25 00:45 07/22/25 01:26 50 MLS/HR Apixaban 2.5 mg BID PO 07/22/25 10:00 UNV objective General: the patient is well developed and nourished. No acute distress. MENTAL STATUS: Subjective SPEECH, LANGUAGE, HIGHER CORTICAL FUNCTION: no aphasia but she has dysathria. CRANIAL NERVES: Left homonymous hemianopsia versus left neg. She looks to her right side all the time. Facial sensation intact in all three divisions bilaterally. Mandibular strength intact. Facial muscles symmetrical and strength intact. SENSATION: Sensation to touch and pinprick is fine MOTOR: Normal tone in the upper and lower extremity. Normal muscle bulk. No fasciculations. No abnormal movements or posturing. Muscle power in the left upper extremity is no less than 4/5, muscle power in the left upper extremity is 2-3/5, she moves both legs minimally REFLEXES: Deep tendon reflexes are symmetrical. No pathological reflexes. CEREBELLAR/COORDINATION: Deferred GAIT/STATION: deferred. laboratory and microbiology Laboratory Tests 07/22/25 05:04 Test 07/22/25 05:04 Range/Units Serum Glucose 99 74-106 mg/dL Problem List Acute left-sided weakness, slurred speech Abnormal CT brain scan Acute stroke, likely secondary to atrial fibrillation AFib Metabolic encephalopathy Metabolic acidosis Right hip fracture status post surgical repair Assessment/Plan Monitoring Supportive treatment Telemetry Eliquis 2.5 mg b.i.d. Lipitor 20 mg daily for now IV antibiotics Stabilize blood pressure with labetalol for acute stroke Orthopedic on case Cardiology on case Pulmonology on case Nephrology on case More recommendation per clinical course This medical document was created using an electronic medical record system with [employer] dictation system. Although this document has been carefully reviewed, there may still be some phonetic and typographical errors. These areas are purely typographical due to imperfections of the software programs, and do not reflect any compromise in the patient's medical care. Prognosis poor Plan discussed with: Other Total Time (mins): 40 VICK CHÁVEZ MD Jul 22, 2025 09:52
[2025-07-22] MEDS ORDERED: CLOPIDOGREL BISULFATE 75 MG TAB PO SCH (10:00)
[2025-07-22] MEDS ORDERED: APIXABAN 5 MG TAB PO SCH (10:00)
--- NOTE | 2025-07-22 10:32 | DVH ---
[facility] [id number] [facility] [id number] Ph: [phone] DIAGNOSTIC IMAGING Diagnostic Imaging Report : [id number] Signed PATIENT: DALIA REED ACCT: [id number] UNIT: [id number] : 1940 [facility] AGE / SEX: 84 / F ADM STATUS: ADM IN SERVICE [id number] ORDERING PHYSICIAN: FLAKITO HARRIS MD PROCEDURE(s): MBHL - BRAIN HEAD WO CONTRAST REASON: CVA ORDER NUMBER(s): [id number], ACCESSION NUMBER(s): [id number] EXAMINATION: MRI BRAIN HEAD WO CONTRAST INDICATION: CVA COMPARISON: CT scan of the head dated 07/21/2025 TECHNIQUE: Multiplanar, multisequence magnetic resonance imaging of the brain was performed without the use of intravenous contrast. FINDINGS: There are multiple foci of restricted diffusion in the right parietal, right temporal and right occipital lobe. No intracranial hemorrhage. No mass effect. There is periventricular/deep white matter T2/FLAIR hyperintensity is nonspecific, but most commonly associated with chronic microvascular disease. The ventricles and sulci are normal in size for age. Clear basal cisterns. Flow voids in the major intracranial vessels are maintained. No abnormality of the orbits. Paranasal sinuses and mastoid air cells are clear. No abnormality of the visualized osseous structures and extracranial soft tissues. IMPRESSION: 1. Acute infarcts in the right parietal, right temporal and right occipital lobe. 2. No intracranial hemorrhage or mass effect. ATED BY: LA SANTIAGO MD DICTATED DATE/TIME: 07/22/25 102 SIGNED BY: LA SANTIAGO MD SIGNED DATE/TIME: 07/22/25 102 CC:
[2025-07-22] MEDS: APIXABAN 5 MG TAB PO SCH (10:45)
[2025-07-22] MEDS: POTASSIUM EFFERVESENT TAB 25 MEQ PO ONE (10:47)
[2025-07-22] MEDS: POTASSIUM CHL 20 Meq TABLET PO ONE (11:46)
--- NOTE | 2025-07-22 11:55 | DVHPN2 ---
Progress Note Date Seen: Jul 22, 2025 Resident Creating Document: DEANDRE MOORE RESIDENT Medical Necessity Reason Pt with a Central, PICC or Fol: Yes The following are medically ne: Luna Catheter Subjective Patient reports: No new complaints, Feels better Other Systems: Patient seen and examined by myself today with the medicine resident, I agree with the assessment and plan Objective vital signs Vital Sign Date Time Temp Pulse Resp B/P (MAP) Pulse Ox O2 Delivery O2 Flow Rate FiO2 07/22/25 11:12 82 18 100 07/22/25 11:06 Nasal Cannula* 2 28 07/22/25 10:45 173/71 07/22/25 05:00 98.6 98.6 Total Intake and Output 07/21/25 07/21/25 07/22/25 15:00 23:00 07:00 Intake Total 520 ml 200 ml 0 ml Output Total 150 ml 600 ml Balance 520 ml 50 ml -600 ml medications Current Medications Medications Dose Ordered Sig/Juan Route Start Time Stop Time Status Last Admin Dose Admin Nitroglycerin 0.4 mg Q5MINP PRN SL 07/19/25 01:00 Ondansetron HCl 4 mg Q6HPRN PRN IV 07/19/25 01:00 Albuterol 2.5 mg Q6HR NEB 07/19/25 06:00 07/22/25 11:06 2.5 MG Ipratropium [place] 0.5 mg Q6HP NEB 07/19/25 06:00 07/22/25 11:06 0.5 MG Ceftriaxone Sodium 50 ml @ 100 mls/hr DAILY IV 07/19/25 10:00 07/22/25 10:44 100 MLS/HR Cefazolin Sodium 50 ml @ 100 mls/hr Q8HR IV 07/19/25 21:00 Hold Morphine Sulfate 2 mg Q30M PRN IV 07/19/25 17:45 Morphine Sulfate 1 mg Q4HPRN PRN IV 07/19/25 17:45 07/21/25 13:48 1 MG Azithromycin 250 ml @ 125 mls/hr DAILY IV 07/21/25 10:00 07/22/25 10:44 125 MLS/HR Metoprolol Tartrate 50 mg BID PO 07/20/25 22:00 07/22/25 10:45 50 MG Lorazepam 1 mg ONCE PRN IV 07/21/25 22:00 Labetalol HCl 10 mg [id number] PRN IV 07/21/25 22:30 Sodium Chloride 1,000 ml @ 50 mls/hr Q20H IV 07/22/25 00:45 07/22/25 01:26 50 MLS/HR Apixaban 2.5 mg BID PO 07/22/25 10:00 07/22/25 10:45 2.5 MG Examination GENERAL: Alert and oriented x 2. No acute distress. EYES: PERRL, EOMI. Anicteric. HENT: Moist mucous membranes. LUNGS: Clear to auscultation bilaterally. CARDIOVASCULAR: Regular rate and rhythm. ABDOMEN: Soft, non-tender and non-distended. EXTREMITIES: RLE TTP with shortening. NEUROLOGIC: No focal neurological deficits. SKIN: Warm, dry. laboratory and microbiology Laboratory Tests 07/22/25 05:04 Test 07/22/25 05:04 Range/Units Serum Glucose 99 74-106 mg/dL Microbiology Date/Time Source Procedure Growth Status 07/19/25 18:00 Nose MRSA Screen - Final Complete 07/19/25 12:05 Pleural Fluid Gram Stain - Final Resulted 07/19/25 12:05 Pleural Fluid Body Fluid Culture - Preliminary No growth Resulted Labs and/or images reviewed: Labs reviewed by me, Image(s) reviewed by me Problem List/Assessment/Plan Problem List/Assessment/Plan CKD stage 2 Encephalopathy Hypomagnesemia and hypokalemia Metabolic acidosis Proteinuria in the range of 2 g Closed right hip fracture s/p ORIF Pneumonia, Acute hypoxic respiratory failure. Left pleural effusion. Compressive atelectasis. Enlarged pulmonary trunk. Lymphadenopathy, Axillary. Plan/ Monitor kidney function and urine output improved Monitor lab Assess fluid status daily Blood pressure management replenish potassium and magnesium Avoid nephrotoxic agents will follow Urine studies Rest of management as per primary team Case discussed with the Dr. Johnson Plan discussed with: Patient DEANDRE MOORE RESIDENT Jul 22, 2025 11:55 DARWIN JOHNSON MD Jul 22, 2025 14:24
--- NOTE | 2025-07-22 19:02 | DVHPN2 ---
Progress Note - Dictate Date Seen: Jul 22, 2025 Medical Necessity Reason Pt with a Central, PICC or Fol: Yes The following are medically ne: Luna Catheter Subjective Patient was seen and evaluated in follow up. Patient complains of right hip pain. Patient is awake, oriented to person only, she follows verbal commands. HGB 9.2, HCT 26.6, NA 147, K 2.6, CA 8.4. MRI Brain revealed acute infarcts in the right parietal, right temporal and right occipital lobe. No intracranial hemorrhage or mass effect. Telemetry reviewed. vital signs Vital Sign Date Time Temp Pulse Resp B/P (MAP) Pulse Ox O2 Delivery O2 Flow Rate FiO2 07/22/25 12:29 88 18 148/78 07/22/25 11:12 100 07/22/25 11:06 Nasal Cannula* 2 28 07/22/25 05:00 98.6 98.6 Total Intake and Output 07/21/25 07/21/25 07/22/25 15:00 23:00 07:00 Intake Total 520 ml 200 ml 0 ml Output Total 150 ml 600 ml Balance 520 ml 50 ml -600 ml medications Current Medications Medications Dose Ordered Sig/Juan Route Start Time Stop Time Status Last Admin Dose Admin Nitroglycerin 0.4 mg Q5MINP PRN SL 07/19/25 01:00 Ondansetron HCl 4 mg Q6HPRN PRN IV 07/19/25 01:00 Albuterol 2.5 mg Q6HR NEB 07/19/25 06:00 07/22/25 11:06 2.5 MG Ipratropium [place] 0.5 mg Q6HP NEB 07/19/25 06:00 07/22/25 11:06 0.5 MG Ceftriaxone Sodium 50 ml @ 100 mls/hr DAILY IV 07/19/25 10:00 07/22/25 10:44 100 MLS/HR Cefazolin Sodium 50 ml @ 100 mls/hr Q8HR IV 07/19/25 21:00 Hold Morphine Sulfate 2 mg Q30M PRN IV 07/19/25 17:45 Morphine Sulfate 1 mg Q4HPRN PRN IV 07/19/25 17:45 07/22/25 11:59 1 MG Azithromycin 250 ml @ 125 mls/hr DAILY IV 07/21/25 10:00 07/22/25 10:44 125 MLS/HR Metoprolol Tartrate 50 mg BID PO 07/20/25 22:00 07/22/25 10:45 50 MG Lorazepam 1 mg ONCE PRN IV 07/21/25 22:00 Labetalol HCl 10 mg [id number] PRN IV 07/21/25 22:30 Sodium Chloride 1,000 ml @ 50 mls/hr Q20H IV 07/22/25 00:45 07/22/25 01:26 50 MLS/HR Apixaban 2.5 mg BID PO 07/22/25 10:00 07/22/25 10:45 2.5 MG objective GENERAL: Alert and oriented x 3. No acute distress. EYES: PERRL, EOMI. Anicteric. HENT: Moist mucous membranes. LUNGS: Clear to auscultation bilaterally. CARDIOVASCULAR: Regular rate and rhythm. ABDOMEN: Soft, non-tender and non-distended. EXTREMITIES: RLE TTP with shortening. NEUROLOGIC: No focal neurological deficits. SKIN: Warm, dry. laboratory and microbiology Laboratory Tests 07/22/25 05:04 Test 07/22/25 05:04 Range/Units Serum Glucose 99 74-106 mg/dL Problem List Closed right hip fracture. Pneumonia, Acute hypoxic respiratory failure. Left pleural effusion. Compressive atelectasis. Enlarged pulmonary trunk. Lymphadenopathy, Axillary. Metabolic acidosis. Assessment/Plan Continued all current supportive medical care. Eliquis. Metoprolol. IV antibiotics as ordered. Morphine for pain management. Nitro SL. Additional plan as per the hospital course. Plan discussed with: Patient KHADAR MAY MD Jul 22, 2025 13:24
--- NOTE | 2025-07-22 23:55 | DVHPN2 ---
Progress Note - Dictate Date Seen: Jul 22, 2025 Medical Necessity Reason Pt with a Central, PICC or Fol: Yes The following are medically ne: Ogden Catheter Reason for ogden catheter: Strict I&O Subjective Patient seen and examined at bedside. Remains on supplemental oxygen Overnight events reviewed. vital signs Vital Sign Date Time Temp Pulse Resp B/P (MAP) Pulse Ox O2 Delivery O2 Flow Rate FiO2 07/22/25 14:00 97.9 70 17 135/51 (79) 94 97.9 07/22/25 11:06 Nasal Cannula* 2 28 Total Intake and Output 07/21/25 07/21/25 07/22/25 15:00 23:00 07:00 Intake Total 520 ml 200 ml 0 ml Output Total 150 ml 600 ml Balance 520 ml 50 ml -600 ml objective Gen.: Patient lying in bed in no apparent distress. On supplemental oxygen. Head: Normocephalic, atraumatic. Eyes: EOMI/PERRLA. Ears: Normal hearing. Normal anatomy. Neck/trachea: Trachea midline, supple. Nose: Normal external anatomy. Mouth: Moist mucous membranes. Chest: Decreased air entry bilaterally. No wheezing or rhonchi. Cardiovascular: Positive S1, positive S2. Regular rate and rhythm. Abdomen: Positive bowel sounds in all 4 quadrants. Soft, non-tender, non- distended. : Deferred. Rectal: Deferred. Skin: Warm, dry. Intact. Extremities: 2+ radial pulses bilaterally. No lower extremity edema. Neuro: Awake, alert, oriented x3. No gross motor or sensory deficits. Cranial nerves II through XII intact. Gait not assessed. laboratory and microbiology Laboratory Tests 07/22/25 05:04 Test 07/22/25 05:04 Range/Units Serum Glucose 99 74-106 mg/dL Assessment/Plan Impression: Acute hypoxic respiratory failure Dependence on supplemental oxygen Left pleural effusion Atelectasis Pneumonia Right hip fracture Plan: Supplemental oxygen Titrate to keep O2 sats above 92%. On 2 LPM NC Taper O2 as tolerated. MRI Brain revealed acute infarcts in the right parietal, right temporal and right occipital lobe. No intracranial hemorrhage or mass effect. Continue bronchodilators. Continue antibiotics Incentive spirometry On Eliquis PO BID S/p thoracentesis- fluid analysis c/w partially treated parapneumonic effusions. Pain control Avoid oversedation Monitor renal function. Monitor electrolytes. Supplement as necessary. Monitor ins and outs. Patient is stable for discharge from the pulmonary standpoint. Disposition per hospitalist. Follow up as outpatient in [facility] to assess for recurrence of pleural fluid. DVT prophylaxis. Prognosis: Poor given patient's multiple co-morbidities. Rest of plan per hospitalist and other consultants. Thank you, Dr. Schroeder, for allowing me to participate in this patient's care. Further recommendations will depend on the patient's clinical course. Please do not hesitate to contact me if you have any questions or concerns. This medical document was created using an electronic medical record system with [employer] dictation system. Although these documentations are being carefully reviewed, there may still be some phonetic and typographical changes. The errors are purely typographical, due to imperfection on the software program, and do not reflect any compromise in the patient's medical care. Plan discussed with: Patient, Other (RN) CLARA ALDANA [facility] Jul 22, 2025 23:55
--- NOTE | 2025-07-23 11:35 | ECG ---
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
--- NOTE | 2025-07-27 08:19 | ECG ---
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
== END 2025-07-22 14:50 | DRG 480 ==
LOC: EDUNIT# 21:05 → ER 21:05 → EDBD 21:05 → OVERFLOW 07-19 00:48 → TELE-WESTW 07-19 16:10
PROVIDERS: ADMIT Student in an Organized Health Care Education/Training Program; ATTEND Student in an Organized Health Care Education/Training Program
PROC: 3E0T3BZ Introduction of Anesthetic Agent into Peripheral Nerves and Plexi, Percutaneous Approach (ICD-10-PCS; 2025-07-19)
PROC: 0W9B3ZZ Drainage of Left Pleural Cavity, Percutaneous Approach (ICD-10-PCS; 2025-07-19)
PROC: 0QS604Z Reposition Right Upper Femur with Internal Fixation Device, Open Approach (ICD-10-PCS; principal; 2025-07-19 13:42)
DX: S72.141A Displaced intertrochanteric fracture of right femur, initial encounter for closed fracture (principal); G93.41 Metabolic encephalopathy; J18.9 Pneumonia, unspecified organism; J96.01 Acute respiratory failure with hypoxia; I63.9 Cerebral infarction, unspecified; I21.A1 Myocardial infarction type 2; E87.20 Acidosis, unspecified; J91.8 Pleural effusion in other conditions classified elsewhere; Z79.02 Long term (current) use of antithrombotics/antiplatelets; I13.0 Hypertensive heart and chronic kidney disease with heart failure and stage 1 through stage 4 chronic kidney disease, or unspecified chronic kidney disease; J98.11 Atelectasis; I50.9 Heart failure, unspecified; E87.6 Hypokalemia; N18.2 Chronic kidney disease, stage 2 (mild); E83.42 Hypomagnesemia; W18.39XA Other fall on same level, initial encounter; R59.0 Localized enlarged lymph nodes; I48.91 Unspecified atrial fibrillation; Z79.82 Long term (current) use of aspirin; Y93.89 Activity, other specified; Y99.8 Other external cause status; Y92.009 Unspecified place in unspecified non-institutional (private) residence as the place of occurrence of the external cause; Z79.899 Other long term (current) drug therapy; Z99.81 Dependence on supplemental oxygen
CPT/HCPCS: 32555; 36415; 36600; 70450; 70496; 70498; 70551; 71045; 71250; 73501; 73502; 76000; 76775; 80048; 80053; 80061; 81001; 82306; 82570; 82805; 82962; 83605; 83735; 83880; 83970; 83986; 84156; 84300; 84439; 84443; 84481; 84484; 85007; 85025; 85027; 85379; 85610; 85730; 87071; 87081; 87205; 88341; 89051; 93005; 93306; 93970; 94640; 97110; 97116; 97163; 97530; G0378; J2250; J2405; J2704; J3490

== ENCOUNTER 2025-07-28 18:49 | Inpatient (IN) | payer OTHER ==
[~2025-07-28] VITALS: Ht 147.3 cm; Wt 49.0 kg
[~2025-07-28 18:49] MED LIST changes: +APIX5TAB PO; +ATOR20TA PO; -CEPH500C PO; -LEVO500T91 PO; +MET25T PO
--- NOTE | 2025-07-28 19:27 | ED.PDOC ---
History of Present Illness HPI Comments 84 y/o [id number] F is [facility] from [facility] for PEG- tube placement inquiry. Per EMS personnel report, family called to have patient admitted for PEG-tube. Patient is A&Ox0. She has no previous history of PEG- tube. Patient is asymptomatic. Further history is limited, due to patient's presentation and absence of family/correctional facility psychiatrist historians. Chief Complaint: Tube Replacement Time Seen by MD: 18:55 Reviewed Notes: Nurses Notes, Newspaper Deliverer Notes, Medications, Allergies Allergies: Coded Allergies: NO KNOWN ALLERGIES (Unverified , 04/16/25) Home Meds Active Scripts Apixaban Base (ELIQUIS) 5 Mg Tab, 2.5 MG PO BID for 30 Days, #30 TAB 2 Refills Prov:FLAKITO HARRIS MD 07/22/25 Atorvastatin Calcium (Lipitor) 20 Mg Tab, 1 TAB PO DAILY, #90 TAB 1 Refill Prov:FLAKITO HARRIS MD 07/22/25 Metoprolol Tartrate (Lopressor) 25 Mg Tb, 50 MG PO BID for 30 Days, #120 TAB 1 Refill Prov:FLAKITO HARRIS MD 07/22/25 Discontinued Scripts Levofloxacin Hemihydrate (LEVOFLOXACIN) 500 Mg Tab, 500 MG PO DAILY for 10 Days, #10 MG Prov:CORRIE ARANA MD 07/18/25 Cephalexin Monohydrate (Cephalexin) 500 Mg Cap, 1 CAP PO TID, #21 CAP Prov:MENDY BURGOS 04/16/25 Information Source: Patient, Emergency Med Personnel Mode of Arrival: EMS Severity: Moderate Timing: Hours Duration: Since onset Prehospital treatment: 12 Lead EKG, Accucheck, Director Of Hotel Past Medical History PAST MEDICAL HISTORY: Dementia Past Medical History (Other): A&O x 0 at baseline Surgical History: Denies all surgeries DEFECT REPAIRER GLASSWARE History: No Pertinent DEFECT REPAIRER GLASSWARE History Family History Family History: Reviewed,noncontributory to illness Social History Smoker: Non-Smoker Alcohol: Denies ETOH Use Drugs: Denies Drug Use Lives In: Home Unable to Obtain due to: Dementia All Other Systems: Deferred Physical Exam Exam Comments alert but disorient - baseline per report General Appearance: No Apparent Distress, Normal, Other (elderly, frail appearing ) HEENT: Normal ENT Inspection, Pharynx Normal, TMs Normal Neck: Full Range of Motion, Non-Tender, Normal, Normal Inspection Respiratory: Chest Non-Tender, Lungs Clear, No Accessory Muscle Use, No Respiratory Distress, Normal Breath Sounds Cardiovascular: No Edema, No JVD, No Murmur, No Gallop, Normal Peripheral Pulses, Regular Rate/Rhythm Breast Exam: Deferred Gastrointestinal: No Organomegaly, Non Tender, No Pulsatile Mass, Normal Bowel Sounds, Soft Genitalia: Deferred Pelvic: Deferred Rectal: Deferred Extremities: No calf tenderness, Normal capillary refill, Normal inspection, Normal range of motion, Non-tender, No pedal edema Musculoskeletal : Apperance: Normal Neurologic: medical front desk coordinator II-XII nml as Tested, No Motor Deficits, Normal Affect (Disoriented at baseline per report), Normal Mood (Disoriented at baseline per report), No Sensory Deficits Cerebellar Function: Normal Reflexes: Normal Skin: Dry, Normal Color, Warm Lymphatic: No Adenopathy Was a procedure done? Was a procedure done?: No Differential Dx Considerations may include: PEG-tube placement inquiry X-Ray, Labs, Meds, VS Vital Signs Date Time Temp Pulse Resp B/P (MAP) Pulse Ox O2 Delivery O2 Flow Rate FiO2 07/28/25 18:57 98.2 80 16 138/88 98 98.2 Lab Test 07/28/25 19:44 Range/Units White Blood Count 13.7 #H 4.4-10.8 10^3/uL Red Blood Count 3.07 L 4.0-5.20 10^6/uL Hemoglobin 9.5 L 12.2-16.2 g/dL Hematocrit 29.4 #L 36.0-46.0 % Mean Corpuscular Volume 95.9 80.0-100.0 fL Mean Corpuscular Hemoglobin 30.9 28.0-32.0 pg Mean Corpuscular Hemoglobin Concent 32.3 32.0-36.0 g/dL Red Cell Distribution Width 16.1 H 11.8-14.3 % Platelet Count 469 H 140-450 10^3/uL Mean Platelet Volume 7.6 6.9-10.8 fL Neutrophils (%) (Auto) 84.2 H 37.0-80.0 % Lymphocytes (%) (Auto) 2.3 L 10.0-50.0 % Monocytes (%) (Auto) 13.3 H 0.0-12.0 % Eosinophils (%) (Auto) 0.1 0.0-7.0 % Basophils (%) (Auto) 0.1 0.0-2.0 % Neutrophils # (Auto) 11.6 H 1.6-8.6 10 ^3/uL Lymphocytes # (Auto) 0.3 L 0.4-5.4 10 ^3/uL Monocytes # (Auto) 1.8 H 0-1.3 10 ^3/uL Eosinophils # (Auto) 0 0-0.8 10 ^3/uL Basophils # (Auto) 0 0-0.2 10 ^3/uL Nucleated Red Blood Cells 0.0 % Prothrombin Time 10.9 9.3-11.8 sec Prothrombin Time INR 1.03 0.9-1.15 Activated Partial Thromboplast Time 33.7 24.5-34.5 SEC Sodium Level 152 #H 136-145 mmol/L Potassium Level 3.2 L 3.5-5.1 mmol/L Chloride Level 111 H 98-107 mmol/L Carbon Dioxide Level 29 20-31 mmol/L Anion Gap 12 5-15 Blood Urea Nitrogen 19 9-23 mg/dL Creatinine 0.60 # 0.550-1.02 mg/dL Glomerular Filtration Rate Calc 88 >90 mL/min BUN/Creatinine Ratio 31.7 H 10.0-20.0 Serum Glucose 100 74-106 mg/dL Calcium Level 8.8 8.7-10.4 mg/dL Magnesium Level 1.9 1.6-2.6 mg/dL Total Bilirubin 0.5 0.2-1.0 mg/dL Aspartate Amino Transferase (AST) 50 H 13-40 U/L Alanine Aminotransferase (ALT) 21 7-40 U/L Alkaline Phosphatase 59 46-116 U/L Total Protein 6.1 5.7-8.2 g/dL Albumin 3.0 L 3.2-4.8 g/dL Time of 1ST Reevaluation: 19:25 Reevaluation 1ST: Unchanged Patient Education/Counseling: Other (Patient is disoriented at baseline ) Family Education/Counseling: No Family Present SEPSIS Sepsis Screen Date sepsis recognized/suspect: Jul 28, 2025 Time Sepsis recognized/suspect: 1858 Recent Procedure: No On Antibiotic Therapy: No Respiratory Rate >20: No Heart Rate >90: No Temp<36 C (96.8 F) or >38.3 C: No SBP <90 or MAP <65 mmHG: No New Acute Mental Status Change: No Is the patient on CPAP, BIPAP,: No Physician Orders Urinalysis (07/28/25 19:00) Vital Signs Date Time Temp Pulse Resp B/P (MAP) Pulse Ox O2 Delivery O2 Flow Rate FiO2 07/28/25 18:57 98.2 80 16 138/88 98 98.2 Laboratory Tests Test 07/28/25 19:44 White Blood Count 13.7 10^3/uL (4.4-10.8) #H Departure 1 Departure Time of Disposition: 21:48 Impression: Primary Impression: Dehydration Additional Impressions: Hypernatremia Hypokalemia Anemia of chronic disease Disposition: ADMITTED INPATIENT Admit to: Med Surg Condition: Guarded Comments 84-year-old female with a history of dementia now brought in by ambulance after she was not taking fluids well at her home. Lab review does show that she is dehydrated with a high sodium level of 152. Low potassium at 3.2. Anemia that is normocytic with an H and H of 9.5 and 29. White blood cell count is elevated 14. Patient was given IV fluids and IV potassium. Patient will need to be admitted for supportive care and further workup Critical Care Note Critical Care Time?: Yes (35 min-critical care time only) Critical care comment: Total critical care time: Approximately 36 minutes Due to a high probability of clinically significant, life threatening deterioration, the patient required my highest level of preparedness to intervene emergently and I personally spent this critical care time directly and personally managing the patient. This critical care time included obtaining a history; examining the patient; pulse oximetry; ordering and review of studies; arranging urgent treatment with development of a management plan; evaluation of patient's response to treatment; frequent reassessment; and, discussions with other providers. This critical care time was performed to assess and manage the high probability of imminent, life-threatening deterioration that could result in multi-organ failure. It was exclusive of separately billable procedures and treating other patients. Stability Stability form required: No Heart Score Heart Score: Heart Score Response (Comments) Value History N/A 0 EKG N/A 0 Age N/A 0 Risk Factors N/A 0 Troponin N/A 0 Total 0 I personally scribed for BON LARA MD ([email or web address]) on 07/28/25 at 19:27. Electronically submitted by Justin Soto ([email or web address]). BON LARA MD Jul 28, 2025 19:27
[2025-07-28 20:01] LABS: Hemoglobin 9.5 g/dL (12.2-16.2); Nucleated Red Blood Cells % 0.0 %
[2025-07-28 20:02] LABS: Hematocrit 29.4 % (36.0-46.0); Mean Corpuscular Hemoglobin 30.9 pg (28.0-32.0); Mean Corpuscular Volume 95.9 fL (80.0-100.0)
[2025-07-28 20:07] LABS: Alanine Aminotransferase 21 U/L (7-40); Alkaline Phosphatase 59 U/L (46-116); Anion Gap 12 (5-15); BUN/Creatinine Ratio 31.7 (10.0-20.0); Blood Urea Nitrogen 19 mg/dL (9-23); Calcium 8.8 mg/dL (8.7-10.4); Carbon Dioxide 29 mmol/L (20-31); Glucose 100 mg/dL (74-106); Magnesium 1.9 mg/dL (1.6-2.6); Total Protein 6.1 g/dL (5.7-8.2)
[2025-07-28 20:08] LABS: Bilirubin, Total 0.5 mg/dL (0.2-1.0)
[2025-07-28 20:12] LABS: Albumin 3.0 g/dL (3.2-4.8); Chloride 111 mmol/L (98-107); Potassium 3.2 mmol/L (3.5-5.1); Sodium 152 mmol/L (136-145)
[2025-07-28 20:18] LABS: INR 1.03 (0.9-1.15); Partial Thromboplastin Time 33.7 SEC (24.5-34.5); Prothrombin Time 10.9 sec (9.3-11.8)
[2025-07-28] MEDS ORDERED: POTASSIUM CHLORIDE 20 MEQ, LIDOCAINE 1% (LOCAL ANESTH.) 2 ML in SODIUM CHL 0.9% 100 ML IV ONE (22:00)
--- NOTE | 2025-07-28 23:17 | DVH ---
EXAM: CT STROKE CTH INDICATION: CVA TECHNIQUE: CT of the head without intravenous contrast. Radiation Dose Information: CT Dose: CTDI volume is 46.47 mGy. Dose-length product is 2833.87 mGy*cm The dose indicators for CT are the volume Computed Tomography (CT) Dose Index (CTDIvol) and the Dose Length Product (DLP), and are measured in units of mGy and mGy-cm, respectively. These indicators are not patient dose, but values generated from the CT scanner acquisition factors. The report includes radiation exposure data for exposures received during this examination. COMPARISON: MRI BRAIN HEAD WO CONTRAST on DOS: 07/22/25, CT ANGIO HEAD/NECK on DOS: 07/21/25, CT HEAD WITHOUT CONTRAST on DOS: 07/21/25, CT HEAD WITHOUT CONTRAST on DOS: 07/18/25 FINDINGS: Motion artifact degrades fine detail. Interval evolution of the previously seen right MCA territorial infarct with increased regions of low attenuation and sulcal effacement within the right temporal and parietal lobes. There is locoregional mass effect without midline shift. There is no acute intracranial hemorrhage. There are global involutional changes with compensatory prominence of the ventricles and sulci. Patchy periventricular and subcortical white matter hypoattenuation is nonspecific but may be related to small vessel ischemic disease. Bilateral lens implants. The paranasal sinuses and mastoid air cells are clear. The osseous structures are unremarkable. IMPRESSION: 1. No acute intracranial hemorrhage. 2. Interval evolution of the previously described right MCA territorial infarct with increased involvement within the right parietal and temporal lobes. There is locoregional mass effect without midline shift. 3. Age-related involutional changes. Chronic microvascular changes. Critical Result: Stroke Alert Findings discussed with BON LARA at 07/28/2025 11:15 PM, and acknowledged receipt and understanding of the findings.
[2025-07-28] MEDS ORDERED: NITROGLYCERIN 0.4 MG SL TAB SL PRN (23:30)
[2025-07-28] MEDS ORDERED: MORPHINE SULFATE INJ 2 MG/ml SYRG IV PRN (23:30)
--- NOTE | 2025-07-28 23:30 | DVH ---
CHEST RADIOGRAPH INDICATION: pna TECHNIQUE: 1 view COMPARISON: XY CHEST XRAY 1 VIEW on DOS: 07/21/25, XY CHEST XRAY 1 VIEW on DOS: 07/19/25, XY CHEST XRAY 1 VIEW on DOS: 07/18/25, XY CHEST PORTABLE on DOS: 07/18/25 FINDINGS: Lines and Tubes: None. Lungs/Pleura: Persistent left basilar opacity with obscuration of the hemidiaphragm. More apparent perihilar interstitial opacities. No pneumothorax. Cardiomediastinum: Unchanged. Other: Unchanged. IMPRESSION: 1. More apparent interstitial opacities without other significant change from 8 days prior. 2. Persistent left basilar opacity likely representing a combination of airspace disease and small pleural effusion.
[2025-07-28] MEDS: POTASSIUM CHL 20MEQ/100ML 100 ML IV ONE (23:33)
[2025-07-28] MEDS: SODIUM CHLORIDE 0.9% 1,000 ML IVB ONE (23:34)
[2025-07-28] MEDS: SOD CHL 0.45% 1,000 ML IV ONE (23:53)
[2025-07-29] VITALS (7 sets, daily range): BP systolic 119–145; BP diastolic 64–77; PULSE 69–92; RESP 16–19; TEMP 98.4–99.4; O2SAT 94–100
[2025-07-29 05:34] LABS: Urine Protein, UAD 1+ (Negative)
[2025-07-29] MEDS: hydrALAZINE HCL 20 MG/ML VL IV PRN (06:07)
[2025-07-29 06:36] LABS: Alanine Aminotransferase 17 U/L (7-40); Alkaline Phosphatase 59 U/L (46-116)
[2025-07-29 06:37] LABS: Anion Gap 16 (5-15); BUN/Creatinine Ratio 32.6 (10.0-20.0); Blood Urea Nitrogen 14 mg/dL (9-23); Carbon Dioxide 23 mmol/L (20-31); Glucose 89 mg/dL (74-106); Total Protein 6.2 g/dL (5.7-8.2)
[2025-07-29 06:41] LABS: Albumin 2.9 g/dL (3.2-4.8); Calcium 8.4 mg/dL (8.7-10.4); Chloride 112 mmol/L (98-107); Potassium 3.5 mmol/L (3.5-5.1); Sodium 151 mmol/L (136-145)
[2025-07-29 06:48] LABS: Hematocrit 28.3 % (36.0-46.0); Hemoglobin 9.1 g/dL (12.2-16.2); Mean Corpuscular Hemoglobin 31.0 pg (28.0-32.0); Mean Corpuscular Volume 96.2 fL (80.0-100.0); Nucleated Red Blood Cells % 0.0 %
[2025-07-29 06:49] LABS: Bilirubin, Total 0.5 mg/dL (0.2-1.0)
[2025-07-29] MEDS ORDERED: VANCOMYCIN PER PHARMACY 0 MG IV SCH (08:00)
--- NOTE | 2025-07-29 08:55 | DVHHP2 ---
Admitting Diagnosis: Patient has not been able to eat for 2 days History of Present Illness HPI 84 y.o. female with dementia who had recent CVA and PNA and admitted here in [facility] then transferred to [facility] for rehabilitation was transferred back to the ER with request for gastric tube placement. The patient has not been able to have oral intake for the past 2 days. Patient was altered and couldn't provide any additional information. No family member was present in the ER at that time. Patient was admitted, CT of the head and CXR was ordered Home Meds Active Scripts Apixaban Base (ELIQUIS) 5 Mg Tab, 2.5 MG PO BID for 30 Days, #30 TAB 2 Refills Prov:FLAKITO HARRIS MD 07/22/25 Atorvastatin Calcium (Lipitor) 20 Mg Tab, 1 TAB PO DAILY, #90 TAB 1 Refill Prov:FLAKITO HARRIS MD 07/22/25 Metoprolol Tartrate (Lopressor) 25 Mg Tb, 50 MG PO BID for 30 Days, #120 TAB 1 Refill Prov:FLAKITO HARRIS MD 07/22/25 Discontinued Scripts Levofloxacin Hemihydrate (LEVOFLOXACIN) 500 Mg Tab, 500 MG PO DAILY for 10 Days, #10 MG Prov:CORRIE ARANA MD 07/18/25 Cephalexin Monohydrate (Cephalexin) 500 Mg Cap, 1 CAP PO TID, #21 CAP Prov:MENDY BURGOS 04/16/25 Past Medical History Cardiac: CAD, CHF, HTN, Hyperlipidemia Pulmonary: Pneumonia Central Nervous System: CVA, Dementia Review of Systems Gastrointestinal: Other (anable to eat) All Other Systems AMS H&P Exam Vital Signs Vital Signs Date Time Temp Pulse Resp B/P (MAP) Pulse Ox O2 Delivery O2 Flow Rate FiO2 07/29/25 06:07 180/63 07/29/25 06:00 97.7 88 16 95 97.7 07/28/25 22:35 Room Air* 0 21 General Appeara: Obese, Other (Altered) Eye Exam: bilateral eye PERRL Pulmonary/Respiratory: Crackles Cardiovascular/Chest: Tachycardia Abdominal Exam: Soft Ankle Exam: bilateral ankle Swelling Neuro/Mental St: Other (altered) SEPSIS Sepsis Screen Date sepsis recognized/suspect: Jul 28, 2025 Time Sepsis recognized/suspect: 2030 Recent Procedure: No On Antibiotic Therapy: No Respiratory Rate >20: No Heart Rate >90: No Temp<36 C (96.8 F) or >38.3 C: No SBP <90 or MAP <65 mmHG: No New Acute Mental Status Change: No Is the patient on CPAP, BIPAP,: No Physician Orders Hydralazine Injection (Apresoline Inject (07/29/25 05:45) Piperacillin-Tazob 3.375gm (Zosyn 3.375g (07/29/25 12:00) Vancomycin Per Pharmacy (07/29/25 08:00) *Consult Dr. Jhonny Damon (07/29/25 08:03) Brain Head Wo Contrast (07/29/25 08:07) Complete Blood Count (07/30/25 04:00) Basic Metabolic Panel (07/30/25 04:00) Rapid Influenza A&B (07/29/25 08:09) Covid19 Antigen Emma (07/29/25 ) Respiratory Syncytial Virus Ag (07/29/25 08:09) Vital Signs Date Time Temp Pulse Resp B/P (MAP) Pulse Ox O2 Delivery O2 Flow Rate FiO2 07/29/25 06:07 180/63 07/29/25 06:00 97.7 88 16 180/63 (102) 95 97.7 07/29/25 05:00 97.8 91 13 173/75 (107) 95 97.8 07/29/25 03:00 93 14 169/60 (96) 95 07/29/25 01:00 90 14 139/52 (81) 93 Laboratory Tests Test 07/29/25 05:25 White Blood Count 15.0 10^3/uL (4.4-10.8) H Medications Medications Dose Ordered Sig/Juan Route Start Time Stop Time Status Last Admin Dose Admin Hydralazine HCl 10 mg Q4HP PRN IV 07/29/25 05:45 07/29/25 06:07 10 MG Potassium Chloride 20 meq/ Sodium Chloride 110 ml @ 55 mls/hr ONCE ONCE IV 07/28/25 23:30 07/29/25 01:29 DC 07/28/25 23:34 55 MLS/HR Sodium Chloride 1,000 ml @ 100 mls/hr Q10H ONCE IV 07/28/25 23:30 07/29/25 09:29 07/28/25 23:53 100 MLS/HR Labs/Xrays Labs Test 07/29/25 05:25 07/29/25 04:54 07/28/25 19:44 Range/Units White Blood Count 15.0 H 4.4-10.8 10^3/uL Red Blood Count 2.94 L 4.0-5.20 10^6/uL Hemoglobin 9.1 L 12.2-16.2 g/dL Hematocrit 28.3 L 36.0-46.0 % Mean Corpuscular Volume 96.2 80.0-100.0 fL Mean Corpuscular Hemoglobin 31.0 28.0-32.0 pg Mean Corpuscular Hemoglobin Concent 32.2 32.0-36.0 g/dL Red Cell Distribution Width 16.3 H 11.8-14.3 % Platelet Count 448 140-450 10^3/uL Mean Platelet Volume 7.9 6.9-10.8 fL Neutrophils (%) (Auto) 87.3 H 37.0-80.0 % Lymphocytes (%) (Auto) 1.6 L 10.0-50.0 % Monocytes (%) (Auto) 10.9 0.0-12.0 % Eosinophils (%) (Auto) 0.1 0.0-7.0 % Basophils (%) (Auto) 0.1 0.0-2.0 % Neutrophils # (Auto) 13.1 H 1.6-8.6 10 ^3/uL Lymphocytes # (Auto) 0.2 L 0.4-5.4 10 ^3/uL Monocytes # (Auto) 1.6 H 0-1.3 10 ^3/uL Eosinophils # (Auto) 0 0-0.8 10 ^3/uL Basophils # (Auto) 0 0-0.2 10 ^3/uL Nucleated Red Blood Cells 0.0 % Sodium Level 151 H 136-145 mmol/L Potassium Level 3.5 3.5-5.1 mmol/L Chloride Level 112 H 98-107 mmol/L Carbon Dioxide Level 23 20-31 mmol/L Anion Gap 16 H 5-15 Blood Urea Nitrogen 14 9-23 mg/dL Creatinine 0.43 L 0.550-1.02 mg/dL Glomerular Filtration Rate Calc 96 >90 mL/min BUN/Creatinine Ratio 32.6 H 10.0-20.0 Serum Glucose 89 74-106 mg/dL Calcium Level 8.4 L 8.7-10.4 mg/dL Total Bilirubin 0.5 0.2-1.0 mg/dL Aspartate Amino Transferase (AST) 50 H 13-40 U/L Alanine Aminotransferase (ALT) 17 7-40 U/L Alkaline Phosphatase 59 46-116 U/L Total Protein 6.2 5.7-8.2 g/dL Albumin 2.9 L 3.2-4.8 g/dL Urine Color Yellow Yellow Urine Clarity Turbid H Clear Urine pH 5.5 5.0-9.0 Urine Specific [place] 1.025 1.001-1.035 Urine Protein 1+ H Negative Urine Ketones 1+ H Negative Urine Blood 3+ H Negative /uL Urine Nitrite Negative Negative Urine Bilirubin Negative Negative Urine Urobilinogen Normal Negative mg/dL Urine Leukocyte Esterase Negative Negative /uL Urine RBC 181 0 - 4 /hpf Urine Microscopic WBC 9 H 0-5 /HPF Urine Squamous Epithelial Cells None seen <5 /hpf Urine Bacteria None seen None Seen /hpf Urine Hyaline Casts Few 0 - 2 /lpf Urine Mucus Few None Seen Urine Glucose Normal Normal mg/dL Prothrombin Time 10.9 9.3-11.8 sec Prothrombin Time INR 1.03 0.9-1.15 Activated Partial Thromboplast Time 33.7 24.5-34.5 SEC Magnesium Level 1.9 1.6-2.6 mg/dL Assessment/Plan Problem List: (1) Hypernatremia (2) Dehydration (3) Unable to eat (4) AMS (altered mental status) (5) CVA (cerebral vascular accident) (6) PNA (pneumonia) (7) Closed right hip fracture Plan IVF, CT head, CXR, family member contact to discuss plans, GI consult for possible gastric tube placement Plan discussed with: Other (ER MD and nurses) MEGHNA MCLEAN MD Jul 29, 2025 08:55
[2025-07-29] MEDS: PIPERACILLIN-TAZOB 3.375GM 100 ML IV SCH (09:00)
--- NOTE | 2025-07-29 09:12 | DVHINCON2 ---
Date of service: Jul 29, [address] Rosenthal Reason for Consultation CVS with mass effects History of Present Illness Ms. Calero is a 84 years old female with a history of pneumonia, he was brought to the [facility] from her custodial on 07/28/2025 for feeding tube insertion. She was discharged from the [facility] on 07/22/2025 for right hip fracture and surgical repair. At that time, she is awake, she is only oriented to herself, she follows some verbal commands, she has left neglect and homonymous hemianopsia, left hemiplegia Per my observation, the patient is not in acute distress or in pain, she does not look worse than the time she was discharged CT head on 07/28/25 showed enlarged stroke I saw her on 07/21/2025 for stroke (MR positive, she was found to have new onset AFib) [phone] no answer [phone], no answer. Yu Urinalysis, 07/29/2025: WBC: 9, urine leukocyte esterase: Negative WBC/HB/PLT/MCV, 07/29/2025: 15/9.1/448/96.2 PT/INR/ABG, 07/28/2025: 10.9/1.03/33.7 Na, 07/28/2025: BUN 52, 07/29/2025: 151 Liver function tests, 07/29/2025: Unremarkable TG/HDL/LDL/HDL, 07/21/2025: 97/116/68/54 EKG, 07/20/2025: AFib Echocardiogram, 07/19/2025: imited difficult study lvef 75% hyperdynamic LV mild LVH noted normal rv function left atrium enlarged no significant aortic stenosis, HOWEVER THERE IS A LARGE INTRACAVITARY VS LVOT GRADIENT OF >130 MMHG, THIS CAN BE SEEN IN HOCM trace to mild mitral regurg L sided pleural effusion noted CT head 07/18/2025: No acute intracranial abnormality CT head, 07/21/2025: Small acute right parietal lobe infarct CTA head, neck, 07/21/2025: Severe diffuse narrowing of the bilateral M1 segments of the middle cerebral artery and posterior cerebral arteries. Differential includes atherosclerosis and vasculitis. Recommend brain MRI with and without IV contrast to exclude basilar meningitis. Moderate and severe multifocal stenoses of the distal intracranial internal carotid artery secondary to atherosclerosis MRI head, 07/22/25: 1. Acute infarcts in the right parietal, right temporal and right occipital lobe. 2. No intracranial hemorrhage or mass effect. CT head, 07/28/25: 1. No acute intracranial hemorrhage. 2. Interval evolution of the previously described right MCA territorial infarct with increased involvement within the right parietal and temporal lobes. There is locoregional mass effect without midline shift. 3. Age-related involutional changes. Chronic microvascular changes. Past Medical History AFib, hip fracture Past Surgical History Right hip fracture repair on 07/19/2025 Family History Unobtainable Social History Unobtainable Allergies: Coded Allergies: NO KNOWN ALLERGIES (Unverified , 04/16/25) Home Meds Active Scripts Apixaban Base (ELIQUIS) 5 Mg Tab, 2.5 MG PO BID for 30 Days, #30 TAB 2 Refills Prov:FLAKITO HARRIS MD 07/22/25 Atorvastatin Calcium (Lipitor) 20 Mg Tab, 1 TAB PO DAILY, #90 TAB 1 Refill Prov:FLAKITO HARRIS MD 07/22/25 Metoprolol Tartrate (Lopressor) 25 Mg Tb, 50 MG PO BID for 30 Days, #120 TAB 1 Refill Prov:FLAKITO HARRIS MD 07/22/25 Discontinued Scripts Levofloxacin Hemihydrate (LEVOFLOXACIN) 500 Mg Tab, 500 MG PO DAILY for 10 Days, #10 MG Prov:CORRIE ARANA MD 07/18/25 Cephalexin Monohydrate (Cephalexin) 500 Mg Cap, 1 CAP PO TID, #21 CAP Prov:MENDY BURGOS 04/16/25 Current Medications Current Medications Medications (Trade) Dose Ordered Sig/Juan Route PRN Reason Start Time Stop Time Status Last Admin Nitroglycerin (Ntrostat Sublingual) 0.4 mg Q5MINP PRN SL FOR CHEST PAIN 07/28/25 23:30 Morphine Sulfate 2 mg Q30M PRN IV FOR CHEST PAIN 07/28/25 23:30 Ceftriaxone Sodium 50 ml @ 100 mls/hr DAILY IV 07/29/25 10:00 Hydralazine HCl (Apresoline Injection) 10 mg Q4HP PRN IV SBP>150 07/29/25 05:45 07/29/25 06:07 Piperacillin Sod/ Tazobactam Sod 100 ml @ 25 mls/hr Q8H IV 07/29/25 09:00 Vancomycin HCl 0 ml @ 0 mls/hr PER PHARMACY IV 07/29/25 08:00 UNV Review of Systems Unobtainable Vital Signs Vital Signs Date Time Temp Pulse Resp B/P (MAP) Pulse Ox O2 Delivery O2 Flow Rate FiO2 07/29/25 08:00 118 07/29/25 06:07 180/63 07/29/25 06:00 97.7 16 95 97.7 07/28/25 22:35 Room Air* 0 21 Physical Exam GENERAL EXAM: General: the patient is well developed and nourished. No acute distress. HEENT: Normocephalic, neck is supple, no carotid bruits. No mass. RESPIRATORY: Normal respiratory effort with symmetrical lung expansion. Lungs clear to auscultation. CARDIOVASCULAR: Regular rate and rhythm with no murmurs. S1, S2. ABDOMEN: Soft, nontender, normal bowel sound NEUROLOGICAL: MENTAL STATUS: Subjective SPEECH, LANGUAGE, HIGHER CORTICAL FUNCTION: She echoes what ever he hears, her voice clear CRANIAL NERVES: #2: Left homonymous hemianopsia #3,4,6: PERRL. EOMs full and conjugate. #5: Facial sensation intact in all three divisions bilaterally. Mandibular s trength intact. #7: Facial muscles symmetrical and strength intact. #8: Hearing grossly normal to voice. #9,10: Deferred #11: Deferred, but looks fine #12: Deferred SENSATION: Sensation to touch and pinprick is fine MOTOR: Normal tone in the upper and lower extremity. Normal muscle bulk. No fasciculations. No abnormal movements or posturing. She only move the right arm, movement noticed in both legs to touch REFLEXES: Deep tendon reflexes are symmetrical. No pathological reflexes. CEREBELLAR/COORDINATION: Deferred GAIT/STATION: deferred. Labs/Diagnostic Data Labs Test 07/29/25 05:25 07/29/25 04:54 07/28/25 19:44 Range/Units White Blood Count 15.0 H 4.4-10.8 10^3/uL Red Blood Count 2.94 L 4.0-5.20 10^6/uL Hemoglobin 9.1 L 12.2-16.2 g/dL Hematocrit 28.3 L 36.0-46.0 % Mean Corpuscular Volume 96.2 80.0-100.0 fL Mean Corpuscular Hemoglobin 31.0 28.0-32.0 pg Mean Corpuscular Hemoglobin Concent 32.2 32.0-36.0 g/dL Red Cell Distribution Width 16.3 H 11.8-14.3 % Platelet Count 448 140-450 10^3/uL Mean Platelet Volume 7.9 6.9-10.8 fL Neutrophils (%) (Auto) 87.3 H 37.0-80.0 % Lymphocytes (%) (Auto) 1.6 L 10.0-50.0 % Monocytes (%) (Auto) 10.9 0.0-12.0 % Eosinophils (%) (Auto) 0.1 0.0-7.0 % Basophils (%) (Auto) 0.1 0.0-2.0 % Neutrophils # (Auto) 13.1 H 1.6-8.6 10 ^3/uL Lymphocytes # (Auto) 0.2 L 0.4-5.4 10 ^3/uL Monocytes # (Auto) 1.6 H 0-1.3 10 ^3/uL Eosinophils # (Auto) 0 0-0.8 10 ^3/uL Basophils # (Auto) 0 0-0.2 10 ^3/uL Nucleated Red Blood Cells 0.0 % Sodium Level 151 H 136-145 mmol/L Potassium Level 3.5 3.5-5.1 mmol/L Chloride Level 112 H 98-107 mmol/L Carbon Dioxide Level 23 20-31 mmol/L Anion Gap 16 H 5-15 Blood Urea Nitrogen 14 9-23 mg/dL Creatinine 0.43 L 0.550-1.02 mg/dL Glomerular Filtration Rate Calc 96 >90 mL/min BUN/Creatinine Ratio 32.6 H 10.0-20.0 Serum Glucose 89 74-106 mg/dL Calcium Level 8.4 L 8.7-10.4 mg/dL Total Bilirubin 0.5 0.2-1.0 mg/dL Aspartate Amino Transferase (AST) 50 H 13-40 U/L Alanine Aminotransferase (ALT) 17 7-40 U/L Alkaline Phosphatase 59 46-116 U/L Total Protein 6.2 5.7-8.2 g/dL Albumin 2.9 L 3.2-4.8 g/dL Urine Color Yellow Yellow Urine Clarity Turbid H Clear Urine pH 5.5 5.0-9.0 Urine Specific [place] 1.025 1.001-1.035 Urine Protein 1+ H Negative Urine Ketones 1+ H Negative Urine Blood 3+ H Negative /uL Urine Nitrite Negative Negative Urine Bilirubin Negative Negative Urine Urobilinogen Normal Negative mg/dL Urine Leukocyte Esterase Negative Negative /uL Urine RBC 181 0 - 4 /hpf Urine Microscopic WBC 9 H 0-5 /HPF Urine Squamous Epithelial Cells None seen <5 /hpf Urine Bacteria None seen None Seen /hpf Urine Hyaline Casts Few 0 - 2 /lpf Urine Mucus Few None Seen Urine Glucose Normal Normal mg/dL Prothrombin Time 10.9 9.3-11.8 sec Prothrombin Time INR 1.03 0.9-1.15 Activated Partial Thromboplast Time 33.7 24.5-34.5 SEC Magnesium Level 1.9 1.6-2.6 mg/dL Assessment Dysphagia Acute left-sided weakness Left-sided neglect Left homonymous hemianopsia Enlarged stroke per CT head Acute stroke earlier in 07/2025, likely secondary to atrial fibrillation AFib Recent right hip fracture status post surgical repair Plan/Recommendation Monitoring Supportive treatment Telemetry MRI brain Lovenox for now, Eliquis on discharge More recommendation per clinical course Prognosis: Poor This medical document was created using an electronic medical record system with U-NOTE dictation system. Although this document has been carefully reviewed, there may still be some phonetic and typographical errors. These areas are purely typographical due to imperfections of the software programs, and do not reflect any compromise in the patient's medical care. Plan discussed with: Other VICK CHÁVEZ MD Jul 29, 2025 09:12
[2025-07-29] MEDS ORDERED: LORazepam 2MG/ML-1ML VIAL IV PRN (10:15)
[2025-07-29] MEDS: VANCOMYCIN 1GM/250ML KIT 250 ML IV SCH (11:16)
--- NOTE | 2025-07-29 12:40 | DVH ---
CLINICAL INDICATION: Evolving stroke. COMPARISON: MRI BRAIN HEAD WO CONTRAST on DOS: 07/22/25, CT ANGIO HEAD/NECK on DOS: 07/21/25, CT HEAD WITHOUT CONTRAST on DOS: 07/21/25 TECHNIQUE: Multisequence multiplanar MRI images of the brain were obtained without contrast. FINDINGS: Motion limited study. Significant increase in size in the area of restricted diffusion in the right cerebral hemisphere involving the frontal, parietal, temporal, and occipital lobes compared to the prior exam with more confluence areas of restricted diffusion throughout the infarct territory, extending up to 9.9 cm in greatest AP dimension and 7.5 cm in greatest craniocaudal dimension, with portions of the infarct territory extending the entire transverse dimension of the cerebral hemisphere, most prominent at the posterior aspect of the cerebral hemisphere involving the occipital and parietal lobes. There are also areas of restricted diffusion in the left temporal and occipital lobes, new compared to the prior exam, including a focal area of restricted diffusion in the occipital lobe measuring up to 2.5 cm in greatest dimension and restricted diffusion in the left temporal lobe measuring up to 5.2 cm in greatest dimension. There is no midline shift. Scattered areas of T2/FLAIR hyperintense signal in the periventricular and subcortical white matter are nonspecific, but most likely sequelae of chronic small vessel ischemic disease. Atrophic changes with dilation of the ventricles and widening of the sulci. Basal cisterns are patent. Cerebellum, brainstem, and midline structures are grossly unremarkable given the limitations of the examination. Mild mucosal thickening of the paranasal sinuses. There are bilateral lens prostheses. Orbits are otherwise grossly unremarkable. IMPRESSION: 1. Motion limited study. 2. Significant increase in size of the right cerebral infarcts as detailed above and new infarcts in the left temporal and occipital lobes. Critical findings Critical Result: Significant increased size of the right cerebral infarct and new infarcts in the left temporal and occipital lobes. Findings discussed with Tiffanie, the RN taking care of the patient at 07/29/2025 02:36 PM [employer]NATIONAL LOGIST[employer], and acknowledged receipt and understanding of the findings. ..
[2025-07-29 12:50] LABS: Potassium 3.5 mmol/L (3.5-5.1)
[2025-07-29 12:51] LABS: Anion Gap 19 (5-15); Calcium 9.0 mg/dL (8.7-10.4); Carbon Dioxide 21 mmol/L (20-31)
[2025-07-29 12:56] LABS: BUN/Creatinine Ratio 25.0 (10.0-20.0); Blood Urea Nitrogen 14 mg/dL (9-23)
[2025-07-29 12:57] LABS: Chloride 112 mmol/L (98-107); Glucose 111 mg/dL (74-106); Sodium 152 mmol/L (136-145)
[2025-07-29] MEDS: ENOXAPARIN SOD 100 MG/1 ML SYRINGE SC SCH (13:09)
[2025-07-29] MEDS: D5W 5% 1,000 ML IV SCH (13:14)
[2025-07-29] MEDS ORDERED: CLINIMIX PER PHARMACY 0 ML IV SCH (14:00)
--- NOTE | 2025-07-29 14:01 | DVHINCON2 ---
GI Consult Consult Note GI consult note Date of Consultation: 07/29/2020 Chief Complaint: Dysphagia Referring Physician: Dr. Burton H&P: 84-year-old female with past medical history of dementia, CVA and PNA, transferred from [facility] acute [facility] for possible gastric tube placement. Patient has not been able to take any oral intake for the past 2-3 days. Patient is altered history from chart and RN at bedside. No family members present Patient also seen by Dr. Damon for new infarcts Patient was on Eliquis and has been switched to Lovenox at this time Past Medical History: CAD, CHF, HTN, Hyperlipidemia, pneumonia, CVA, dementia Past Surgical History: Unsure Social History: NO smoking, drinking ETOH and use of illegal drugs. Family History: Unsure Review of Systems: As above Physical exam: General: Awake but disoriented Chest: lung gonzalez clear to auscultation Heart: RRR, no murmur Abdomen: non-distended, no tenderness to palpation, +BS Labs: Labs Test 07/29/25 12:32 07/29/25 05:25 07/29/25 04:54 07/28/25 19:44 Range/Units Sodium Level 152 H 136-145 mmol/L Potassium Level 3.5 3.5-5.1 mmol/L Chloride Level 112 H 98-107 mmol/L Carbon Dioxide Level 21 20-31 mmol/L Anion Gap 19 H 5-15 Blood Urea Nitrogen 14 9-23 mg/dL Creatinine 0.56 # 0.550-1.02 mg/dL Glomerular Filtration Rate Calc 90 >90 mL/min BUN/Creatinine Ratio 25.0 H 10.0-20.0 Serum Glucose 111 H 74-106 mg/dL Calcium Level 9.0 8.7-10.4 mg/dL White Blood Count 15.0 H 4.4-10.8 10^3/uL Red Blood Count 2.94 L 4.0-5.20 10^6/uL Hemoglobin 9.1 L 12.2-16.2 g/dL Hematocrit 28.3 L 36.0-46.0 % Mean Corpuscular Volume 96.2 80.0-100.0 fL Mean Corpuscular Hemoglobin 31.0 28.0-32.0 pg Mean Corpuscular Hemoglobin Concent 32.2 32.0-36.0 g/dL Red Cell Distribution Width 16.3 H 11.8-14.3 % Platelet Count 448 140-450 10^3/uL Mean Platelet Volume 7.9 6.9-10.8 fL Neutrophils (%) (Auto) 87.3 H 37.0-80.0 % Lymphocytes (%) (Auto) 1.6 L 10.0-50.0 % Monocytes (%) (Auto) 10.9 0.0-12.0 % Eosinophils (%) (Auto) 0.1 0.0-7.0 % Basophils (%) (Auto) 0.1 0.0-2.0 % Neutrophils # (Auto) 13.1 H 1.6-8.6 10 ^3/uL Lymphocytes # (Auto) 0.2 L 0.4-5.4 10 ^3/uL Monocytes # (Auto) 1.6 H 0-1.3 10 ^3/uL Eosinophils # (Auto) 0 0-0.8 10 ^3/uL Basophils # (Auto) 0 0-0.2 10 ^3/uL Nucleated Red Blood Cells 0.0 % Total Bilirubin 0.5 0.2-1.0 mg/dL Aspartate Amino Transferase (AST) 50 H 13-40 U/L Alanine Aminotransferase (ALT) 17 7-40 U/L Alkaline Phosphatase 59 46-116 U/L Total Protein 6.2 5.7-8.2 g/dL Albumin 2.9 L 3.2-4.8 g/dL Urine Color Yellow Yellow Urine Clarity Turbid H Clear Urine pH 5.5 5.0-9.0 Urine Specific [place] 1.025 1.001-1.035 Urine Protein 1+ H Negative Urine Ketones 1+ H Negative Urine Blood 3+ H Negative /uL Urine Nitrite Negative Negative Urine Bilirubin Negative Negative Urine Urobilinogen Normal Negative mg/dL Urine Leukocyte Esterase Negative Negative /uL Urine RBC 181 0 - 4 /hpf Urine Microscopic WBC 9 H 0-5 /HPF Urine Squamous Epithelial Cells None seen <5 /hpf Urine Bacteria None seen None Seen /hpf Urine Hyaline Casts Few 0 - 2 /lpf Urine Mucus Few None Seen Urine Glucose Normal Normal mg/dL Prothrombin Time 10.9 9.3-11.8 sec Prothrombin Time INR 1.03 0.9-1.15 Activated Partial Thromboplast Time 33.7 24.5-34.5 SEC Magnesium Level 1.9 1.6-2.6 mg/dL Imaging: Head CT IMPRESSION: 1. No acute intracranial hemorrhage. 2. Interval evolution of the previously described right MCA territorial infarct with increased involvement within the right parietal and temporal lobes. There is locoregional mass effect without midline shift. 3. Age-related involutional changes. Chronic microvascular changes. MRI head IMPRESSION: 1. Motion limited study. 2. Significant increase in size of the right cerebral infarcts as detailed above and new infarcts in the left temporal and occipital lobes. Assessment: Dysphagia Failure to thrive CVA Altered mental status Atrial fibrillation Plan: Discussed with Dr. Waters IV Clinimix Possible EGD with PEG placement when patient is stable, and cleared by Neurology for procedure Supportive care recommended at this time We will continue to monitor patient Plan discussed with RN also Thank you for this consult Date of Service: Jul 29, 2025 Billing Provider: JUSTICE KEATING Common Visit Codes: CONSULT ONLY Consultation Codes: [id number] CONSULT <60MIN JUSTICE KEATING Jul 29, 2025 14:01
[2025-07-29 17:09] LABS: COVID19 ANTIGEN SOFIA FIA NEGATIVE (NEGATIVE)
--- NOTE | 2025-07-29 19:07 | DVHINCON2 ---
Referring Physician dr tovar and dr morel Reason for Consultation pulm imp lt lung pneumonia and rt and lt cerebral infarcts History of Present Illness dictated [id number] Allergies: Coded Allergies: NO KNOWN ALLERGIES (Unverified , 04/16/25) Home Meds Active Scripts Apixaban Base (ELIQUIS) 5 Mg Tab, 2.5 MG PO BID for 30 Days, #30 TAB 2 Refills Prov:FLAKITO HARRIS MD 07/22/25 Atorvastatin Calcium (Lipitor) 20 Mg Tab, 1 TAB PO DAILY, #90 TAB 1 Refill Prov:FLAKITO HARRIS MD 07/22/25 Metoprolol Tartrate (Lopressor) 25 Mg Tb, 50 MG PO BID for 30 Days, #120 TAB 1 Refill Prov:FLAKITO HARRIS MD 07/22/25 Discontinued Scripts Levofloxacin Hemihydrate (LEVOFLOXACIN) 500 Mg Tab, 500 MG PO DAILY for 10 Days, #10 MG Prov:CORRIE ARANA MD 07/18/25 Cephalexin Monohydrate (Cephalexin) 500 Mg Cap, 1 CAP PO TID, #21 CAP Prov:MENDY BURGOS 04/16/25 Current Medications Current Medications Medications (Trade) Dose Ordered Sig/Juan Route PRN Reason Start Time Stop Time Status Last Admin Nitroglycerin (Ntrostat Sublingual) 0.4 mg Q5MINP PRN SL FOR CHEST PAIN 07/28/25 23:30 Morphine Sulfate 2 mg Q30M PRN IV FOR CHEST PAIN 07/28/25 23:30 Ceftriaxone Sodium 50 ml @ 100 mls/hr DAILY IV 07/29/25 10:00 Hold 07/29/25 10:30 Hydralazine HCl (Apresoline Injection) 10 mg Q4HP PRN IV SBP>150 07/29/25 05:45 07/29/25 06:07 Piperacillin Sod/ Tazobactam Sod 100 ml @ 25 mls/hr Q8H IV 07/29/25 09:00 07/29/25 17:00 Vancomycin HCl 0 ml @ 0 mls/hr PER PHARMACY IV 07/29/25 08:00 Vancomycin HCl 250 ml @ 250 mls/hr Q1H IV 07/29/25 09:45 07/29/25 11:44 DC 07/29/25 13:09 Enoxaparin Sodium (Lovenox) 90 mg Q12HR SC 07/29/25 10:00 07/29/25 13:09 Lorazepam (Ativan Inj) 1 mg ONCE PRN IV MRI 07/29/25 10:15 Dextrose 1,000 ml @ 100 mls/hr Q10H IV 07/29/25 12:15 Amino Acids 0 ml @ 0 mls/hr PER PHARMACY IV 07/29/25 14:00 Amino Acids/ Electrolytes/ Dextrose 1,000 ml @ 41 mls/hr DAILY@2200 IV 07/29/25 22:00 Diagnostic Test (Pha) (Accu-Chek Comfort Curve T) 1 strip Q6HR 07/30/25 00:00 Insulin Human Regular (InsuLIN R) FOLLOW SLIDING SCALE Q6HR SC 07/30/25 00:00 Dextrose 50 ml UD IV 07/29/25 22:00 Vital Signs Vital Signs Date Time Temp Pulse Resp B/P (MAP) Pulse Ox O2 Delivery O2 Flow Rate FiO2 07/29/25 16:57 99.4 86 19 145/73 (97) 94 99.4 07/29/25 16:27 Nasal Cannula* 2 28 Labs/Diagnostic Data Labs Test 07/29/25 16:21 07/29/25 12:32 07/29/25 05:25 07/29/25 04:54 Range/Units Influenza Type A Antigen Negative Negative Influenza Type B Antigen Negative Negative SARS-CoV-2 Antigen (Rapid) Negative NEGATIVE Sodium Level 152 H 136-145 mmol/L Potassium Level 3.5 3.5-5.1 mmol/L Chloride Level 112 H 98-107 mmol/L Carbon Dioxide Level 21 20-31 mmol/L Anion Gap 19 H 5-15 Blood Urea Nitrogen 14 9-23 mg/dL Creatinine 0.56 # 0.550-1.02 mg/dL Glomerular Filtration Rate Calc 90 >90 mL/min BUN/Creatinine Ratio 25.0 H 10.0-20.0 Serum Glucose 111 H 74-106 mg/dL Calcium Level 9.0 8.7-10.4 mg/dL White Blood Count 15.0 H 4.4-10.8 10^3/uL Red Blood Count 2.94 L 4.0-5.20 10^6/uL Hemoglobin 9.1 L 12.2-16.2 g/dL Hematocrit 28.3 L 36.0-46.0 % Mean Corpuscular Volume 96.2 80.0-100.0 fL Mean Corpuscular Hemoglobin 31.0 28.0-32.0 pg Mean Corpuscular Hemoglobin Concent 32.2 32.0-36.0 g/dL Red Cell Distribution Width 16.3 H 11.8-14.3 % Platelet Count 448 140-450 10^3/uL Mean Platelet Volume 7.9 6.9-10.8 fL Neutrophils (%) (Auto) 87.3 H 37.0-80.0 % Lymphocytes (%) (Auto) 1.6 L 10.0-50.0 % Monocytes (%) (Auto) 10.9 0.0-12.0 % Eosinophils (%) (Auto) 0.1 0.0-7.0 % Basophils (%) (Auto) 0.1 0.0-2.0 % Neutrophils # (Auto) 13.1 H 1.6-8.6 10 ^3/uL Lymphocytes # (Auto) 0.2 L 0.4-5.4 10 ^3/uL Monocytes # (Auto) 1.6 H 0-1.3 10 ^3/uL Eosinophils # (Auto) 0 0-0.8 10 ^3/uL Basophils # (Auto) 0 0-0.2 10 ^3/uL Nucleated Red Blood Cells 0.0 % Total Bilirubin 0.5 0.2-1.0 mg/dL Aspartate Amino Transferase (AST) 50 H 13-40 U/L Alanine Aminotransferase (ALT) 17 7-40 U/L Alkaline Phosphatase 59 46-116 U/L Total Protein 6.2 5.7-8.2 g/dL Albumin 2.9 L 3.2-4.8 g/dL Urine Color Yellow Yellow Urine Clarity Turbid H Clear Urine pH 5.5 5.0-9.0 Urine Specific [place] 1.025 1.001-1.035 Urine Protein 1+ H Negative Urine Ketones 1+ H Negative Urine Blood 3+ H Negative /uL Urine Nitrite Negative Negative Urine Bilirubin Negative Negative Urine Urobilinogen Normal Negative mg/dL Urine Leukocyte Esterase Negative Negative /uL Urine RBC 181 0 - 4 /hpf Urine Microscopic WBC 9 H 0-5 /HPF Urine Squamous Epithelial Cells None seen <5 /hpf Urine Bacteria None seen None Seen /hpf Urine Hyaline Casts Few 0 - 2 /lpf Urine Mucus Few None Seen Urine Glucose Normal Normal mg/dL Test 07/28/25 19:44 Range/Units Prothrombin Time 10.9 9.3-11.8 sec Prothrombin Time INR 1.03 0.9-1.15 Activated Partial Thromboplast Time 33.7 24.5-34.5 SEC Magnesium Level 1.9 1.6-2.6 mg/dL ANNI BAL MD Jul 29, 2025 19:07
[2025-07-29] MEDS: SODIUM CHLORIDE 0.9% 1,000 ML IV SCH (20:45)
[2025-07-29 21:38] LABS: Anion Gap 14 (5-15); Carbon Dioxide 23 mmol/L (20-31)
[2025-07-29 21:43] LABS: BUN/Creatinine Ratio 23.9 (10.0-20.0); Blood Urea Nitrogen 11 mg/dL (9-23)
[2025-07-29 21:48] LABS: Chloride 111 mmol/L (98-107); Glucose 123 mg/dL (74-106); Potassium 3.4 mmol/L (3.5-5.1); Sodium 148 mmol/L (136-145)
[2025-07-29 21:49] LABS: Calcium 8.6 mg/dL (8.7-10.4)
[2025-07-29] MEDS ORDERED: DEXTROSE (50%) 50ML SYRG IV SCH (22:00)
--- NOTE | 2025-07-29 22:08 | DVHPN2 ---
Progress Note - Dictate Date Seen: Jul 29, 2025 Medical Necessity Reason Pt with a Central, PICC or Fol: No Reason for ogden catheter: Strict I&O Subjective The patient admitted this morning after presenting from SNF do to altered mental status and reduce oral intake for the past few days. Patient is currently only able to give me her name and is able to follow some simple commands. Patient has complete left sided neglect that was present from previous hospitalization after sustaining a CVA after her right hip surgery and development of atrial fibrillation. Patient family are not at bedside. vital signs Vital Sign Date Time Temp Pulse Resp B/P (MAP) Pulse Ox O2 Delivery O2 Flow Rate FiO2 07/29/25 21:00 98.4 92 17 141/77 (98) 94 98.4 07/29/25 16:27 Nasal Cannula* 2 28 Total Intake and Output 07/28/25 07/28/25 07/29/25 15:00 23:00 07:00 Intake Total 1810 ml Balance 1810 ml medications Current Medications Medications Dose Ordered Sig/Juan Route Start Time Stop Time Status Last Admin Dose Admin Nitroglycerin 0.4 mg Q5MINP PRN SL 07/28/25 23:30 Morphine Sulfate 2 mg Q30M PRN IV 07/28/25 23:30 Ceftriaxone Sodium 50 ml @ 100 mls/hr DAILY IV 07/29/25 10:00 Hold 07/29/25 10:30 100 MLS/HR Hydralazine HCl 10 mg Q4HP PRN IV 07/29/25 05:45 07/29/25 06:07 10 MG Piperacillin Sod/ Tazobactam Sod 100 ml @ 25 mls/hr Q8H IV 07/29/25 09:00 07/29/25 17:00 25 MLS/HR Vancomycin HCl 0 ml @ 0 mls/hr PER PHARMACY IV 07/29/25 08:00 Enoxaparin Sodium 90 mg Q12HR SC 07/29/25 10:00 07/29/25 13:09 90 MG Lorazepam 1 mg ONCE PRN IV 07/29/25 10:15 Amino Acids 0 ml @ 0 mls/hr PER PHARMACY IV 07/29/25 14:00 Amino Acids/ Electrolytes/ Dextrose 1,000 ml @ 41 mls/hr DAILY@2200 IV 07/29/25 22:00 Diagnostic Test (Pha) 1 strip Q6HR 07/30/25 00:00 Insulin Human Regular FOLLOW SLIDING SCALE Q6HR SC 07/30/25 00:00 Dextrose 50 ml UD IV 07/29/25 22:00 Albuterol 2.5 mg Q4HWA NEB 07/29/25 22:00 Sodium Chloride 1,000 ml @ 75 mls/hr [id number] IV 07/29/25 20:45 objective GEN: A&Ox1, NAD, HEENT: NC/AT, EOMI, PERRL CV: S1S2+, RRR Lungs, Bilateral posterior base rales, no wheezing, Abd: Soft, NT, ND, + BS MSK: No left sided movement, patient is able to lift her right arm and right leg CN: Facial droop, unable to complete testing laboratory and microbiology Laboratory Tests 07/29/25 05:25 Test 07/29/25 20:18 Range/Units Serum Glucose Pending MRI BRAIN NON CONTRAST RESULTS: IMPRESSION: 1. Motion limited study. 2. Significant increase in size of the right cerebral infarcts as detailed above and new infarcts in the left temporal and occipital lobes. Critical findings Critical Result: Significant increased size of the right cerebral infarct and new infarcts in the left temporal and occipital lobes. Problem List Primary Diagnosis: Multifocal CVA Altered Mental Status likely secondary to CVA Dysphagia Acute Hypernatremia Dehydration Left Lower Lobe Opacity - possible persistent pneumonia Secondary Diagnosis: Paroxysmal Atrial Fibrillation Left Sided Neglect Assessment/Plan - continue telemetry monitoring - MRI Brain ordered this morning shows two new lefts sided strokes since her discharge and enlargement of her prior stroke. Patient likely gas multiple embolic strokes from history of underline atrial fibrillation. patient started on Lovenox 1mg/Kg SQ BID, PT/OT,ST consults have been requested. Will continue to follow up with neurology recommendations - IV abx with Zosyn and Vancomycin Day 1 for likely unresolved pneumonia vs possible aspiration. Pulmonary consult requested. - NPO, IV Fluids, GI consult for evaluation for PEG placement for dysphagia, Cardiology consult for cardiac clearance. - Isotonic fluids have been held per request of neurology do to concern for cerebral edema. Will discuss resuming fluids do to dehydration and hypernatremia. - Am labs DVT Prophy; Lovenox 1mg/Kg SQ BID Full Code Dispo: Patient poor prognosis was discussed with his niece, Margie, who would like to keep patient full code at this time and requesting PEG tube placement for artificial nutrition. Prognosis Poor Plan discussed with: Other (Niece; Margie) RADHA LOPEZ MD Jul 29, 2025 22:08
[2025-07-29] MEDS: ALBUTEROL SULF 2.5 MG/0.5ML(0.5%) NEB SOLN NEB SCH (22:20)
[2025-07-29] MEDS: AMINO ACID INFUSION IN D10W 1,000 ML IV SCH (22:53)
--- NOTE | 2025-07-29 23:25 | DVHINCON2 ---
Date of service: Jul 29, 2025 Referring Physician Evita Reason for Consultation Cardiac clearance for PEG tube placement. History of Present Illness This is an 84 year old female with a PMH of Dementia who was brought in by EMS from from [facility] yesterday for evaluation for possible PEG-tube placement. Per EMS personnel report, the patient's family called [facility] to have the patient admitted for PEG-tube. Patient is A&Ox0. Patient has no previous history of PEG-tube. Patient is asymptomatic. WBC 15, HGB 9.1, HCT 28.3, NA 148, K 3.4, CL 111, CA 8.6. Chest x-ray shows more apparent interstitial opacities without other significant change from 8 days prior. Persistent left basilar opacity likely representing a combination of airspace disease and small pleural effusion. CT head: no acute intracranial hemorrhage. Interval evolution of the previously described right MCA territorial infarct with increased involvement within the right parietal and temporal lobes. There is locoregional mass effect without midline shift. Age-related involutional changes. Chronic microvascular changes. Patient was admitted to the hospital. I am asked to consult on this patient. Allergies: Coded Allergies: NO KNOWN ALLERGIES (Unverified , 04/16/25) Home Meds Active Scripts Apixaban Base (ELIQUIS) 5 Mg Tab, 2.5 MG PO BID for 30 Days, #30 TAB 2 Refills Prov:FLAKITO HARRIS MD 07/22/25 Atorvastatin Calcium (Lipitor) 20 Mg Tab, 1 TAB PO DAILY, #90 TAB 1 Refill Prov:FLAKITO HARRIS MD 07/22/25 Metoprolol Tartrate (Lopressor) 25 Mg Tb, 50 MG PO BID for 30 Days, #120 TAB 1 Refill Prov:FLAKITO HARRIS MD 07/22/25 Discontinued Scripts Levofloxacin Hemihydrate (LEVOFLOXACIN) 500 Mg Tab, 500 MG PO DAILY for 10 Days, #10 MG Prov:CORRIE ARANA MD 07/18/25 Cephalexin Monohydrate (Cephalexin) 500 Mg Cap, 1 CAP PO TID, #21 CAP Prov:MENDY BURGOS 04/16/25 Current Medications Current Medications Medications (Trade) Dose Ordered Sig/Juan Route PRN Reason Start Time Stop Time Status Last Admin Nitroglycerin (Ntrostat Sublingual) 0.4 mg Q5MINP PRN SL FOR CHEST PAIN 07/28/25 23:30 Morphine Sulfate 2 mg Q30M PRN IV FOR CHEST PAIN 07/28/25 23:30 Ceftriaxone Sodium 50 ml @ 100 mls/hr DAILY IV 07/29/25 10:00 Hold 07/29/25 10:30 Hydralazine HCl (Apresoline Injection) 10 mg Q4HP PRN IV SBP>150 07/29/25 05:45 07/29/25 06:07 Piperacillin Sod/ Tazobactam Sod 100 ml @ 25 mls/hr Q8H IV 07/29/25 09:00 07/29/25 17:00 Vancomycin HCl 0 ml @ 0 mls/hr PER PHARMACY IV 07/29/25 08:00 Vancomycin HCl 250 ml @ 250 mls/hr Q1H IV 07/29/25 09:45 07/29/25 11:44 DC 07/29/25 13:09 Enoxaparin Sodium (Lovenox) 90 mg Q12HR SC 07/29/25 10:00 07/29/25 13:09 Lorazepam (Ativan Inj) 1 mg ONCE PRN IV MRI 07/29/25 10:15 Dextrose 1,000 ml @ 100 mls/hr Q10H IV 07/29/25 12:15 07/29/25 20:40 DC Amino Acids 0 ml @ 0 mls/hr PER PHARMACY IV 07/29/25 14:00 Amino Acids/ Electrolytes/ Dextrose 1,000 ml @ 41 mls/hr DAILY@2200 IV 07/29/25 22:00 Diagnostic Test (Pha) (Accu-Chek Comfort Curve T) 1 strip Q6HR 07/30/25 00:00 Insulin Human Regular (InsuLIN R) FOLLOW SLIDING SCALE Q6HR SC 07/30/25 00:00 Dextrose 50 ml UD IV 07/29/25 22:00 Albuterol (Ventolin Medneb) 2.5 mg Q4HWA NEB 07/29/25 22:00 07/29/25 22:20 Sodium Chloride 1,000 ml @ 75 mls/hr [id number] IV 07/29/25 20:45 Review of Systems Unable to Obtain due to: Dementia Vital Signs Vital Signs Date Time Temp Pulse Resp B/P (MAP) Pulse Ox O2 Delivery O2 Flow Rate FiO2 07/29/25 21:00 98.4 92 17 141/77 (98) 94 98.4 07/29/25 16:27 Nasal Cannula* 2 28 Physical Exam GENERAL: Altered, elderly, frail appearing EYES: PERRL, EOMI. Anicteric. HENT: Moist mucous membranes. LUNGS: Clear to auscultation bilaterally. CARDIOVASCULAR: Regular rate and rhythm. ABDOMEN: Soft, nontender and nondistended. EXTREMITIES: No edema. SKIN: Warm, dry. Labs/Diagnostic Data Labs Test 07/29/25 20:18 07/29/25 16:21 07/29/25 05:25 07/29/25 04:54 Range/Units Sodium Level 148 H 136-145 mmol/L Potassium Level 3.4 L 3.5-5.1 mmol/L Chloride Level 111 H 98-107 mmol/L Carbon Dioxide Level 23 20-31 mmol/L Anion Gap 14 5-15 Blood Urea Nitrogen 11 9-23 mg/dL Creatinine 0.46 L 0.550-1.02 mg/dL Glomerular Filtration Rate Calc 94 >90 mL/min BUN/Creatinine Ratio 23.9 H 10.0-20.0 Serum Glucose 123 H 74-106 mg/dL Calcium Level 8.6 L 8.7-10.4 mg/dL Influenza Type A Antigen Negative Negative Influenza Type B Antigen Negative Negative SARS-CoV-2 Antigen (Rapid) Negative NEGATIVE White Blood Count 15.0 H 4.4-10.8 10^3/uL Red Blood Count 2.94 L 4.0-5.20 10^6/uL Hemoglobin 9.1 L 12.2-16.2 g/dL Hematocrit 28.3 L 36.0-46.0 % Mean Corpuscular Volume 96.2 80.0-100.0 fL Mean Corpuscular Hemoglobin 31.0 28.0-32.0 pg Mean Corpuscular Hemoglobin Concent 32.2 32.0-36.0 g/dL Red Cell Distribution Width 16.3 H 11.8-14.3 % Platelet Count 448 140-450 10^3/uL Mean Platelet Volume 7.9 6.9-10.8 fL Neutrophils (%) (Auto) 87.3 H 37.0-80.0 % Lymphocytes (%) (Auto) 1.6 L 10.0-50.0 % Monocytes (%) (Auto) 10.9 0.0-12.0 % Eosinophils (%) (Auto) 0.1 0.0-7.0 % Basophils (%) (Auto) 0.1 0.0-2.0 % Neutrophils # (Auto) 13.1 H 1.6-8.6 10 ^3/uL Lymphocytes # (Auto) 0.2 L 0.4-5.4 10 ^3/uL Monocytes # (Auto) 1.6 H 0-1.3 10 ^3/uL Eosinophils # (Auto) 0 0-0.8 10 ^3/uL Basophils # (Auto) 0 0-0.2 10 ^3/uL Nucleated Red Blood Cells 0.0 % Total Bilirubin 0.5 0.2-1.0 mg/dL Aspartate Amino Transferase (AST) 50 H 13-40 U/L Alanine Aminotransferase (ALT) 17 7-40 U/L Alkaline Phosphatase 59 46-116 U/L Total Protein 6.2 5.7-8.2 g/dL Albumin 2.9 L 3.2-4.8 g/dL Urine Color Yellow Yellow Urine Clarity Turbid H Clear Urine pH 5.5 5.0-9.0 Urine Specific [place] 1.025 1.001-1.035 Urine Protein 1+ H Negative Urine Ketones 1+ H Negative Urine Blood 3+ H Negative /uL Urine Nitrite Negative Negative Urine Bilirubin Negative Negative Urine Urobilinogen Normal Negative mg/dL Urine Leukocyte Esterase Negative Negative /uL Urine RBC 181 0 - 4 /hpf Urine Microscopic WBC 9 H 0-5 /HPF Urine Squamous Epithelial Cells None seen <5 /hpf Urine Bacteria None seen None Seen /hpf Urine Hyaline Casts Few 0 - 2 /lpf Urine Mucus Few None Seen Urine Glucose Normal Normal mg/dL Test 07/28/25 19:44 Range/Units Prothrombin Time 10.9 9.3-11.8 sec Prothrombin Time INR 1.03 0.9-1.15 Activated Partial Thromboplast Time 33.7 24.5-34.5 SEC Magnesium Level 1.9 1.6-2.6 mg/dL Assessment Multifocal CVA. Altered mental status. Dysphagia. Hypernatremia. Dehydration. Left lower lobe opacity. Paroxysmal atrial fibrillation. Plan/Recommendation I agree with your ongoing assessment and care of plan. DVT prophylactics. IV Hydralazine for SBP >160. Morphine for pain management. Nitro SL. IV antibiotics as ordered. Additional plan as per the hospital course. A total of 45 minutes was spent reviewing the patient record, examining the patient, making a diagnostic and therapeutic plan, discussing this plan with medical personnel, following up on diagnostic studies and following the patient for clinical stability excluding any and all procedures. At least 50% of this time was spent in direct, [id number] contact. Plan discussed with: Other KHADAR MAY MD Jul 29, 2025 22:32
[2025-07-30] VITALS (16 sets, daily range): BP systolic 124–176; BP diastolic 67–90; PULSE 75–110; RESP 16–20; TEMP 98.1–99.7; O2SAT 90–100
[2025-07-30] MEDS: ACCU-CHEK COMFORT CURVE STRIP VI SCH (00:16)
[2025-07-30] MEDS: InsuLIN REG 1unit/0.01ml Soln (100units/ml) SC SCH (00:16)
[2025-07-30 07:27] LABS: Hemoglobin 9.1 g/dL (12.2-16.2); Mean Corpuscular Volume 94.9 fL (80.0-100.0); Nucleated Red Blood Cells % 0.0 %
[2025-07-30 07:30] LABS: Hematocrit 27.8 % (36.0-46.0); Mean Corpuscular Hemoglobin 31.0 pg (28.0-32.0)
[2025-07-30 07:55] LABS: Alanine Aminotransferase 21 U/L (7-40); Alkaline Phosphatase 67 U/L (46-116); Anion Gap 13 (5-15); BUN/Creatinine Ratio 30.2 (10.0-20.0); Blood Urea Nitrogen 16 mg/dL (9-23); Carbon Dioxide 24 mmol/L (20-31); Magnesium 1.7 mg/dL (1.6-2.6)
[2025-07-30 07:56] LABS: Bilirubin, Total 0.7 mg/dL (0.2-1.0)
[2025-07-30 07:57] LABS: Albumin 2.6 g/dL (3.2-4.8); Calcium 8.4 mg/dL (8.7-10.4); Chloride 113 mmol/L (98-107); Glucose 153 mg/dL (74-106); Potassium 2.9 mmol/L (3.5-5.1); Sodium 150 mmol/L (136-145); Total Protein 5.6 g/dL (5.7-8.2)
[2025-07-30] MEDS ORDERED: POTASSIUM CHL 20MEQ/100ML 100 ML IV SCH (12:45)
[2025-07-30] MEDS ORDERED: POTASSIUM PHOSPHATE 44 MEQ in D5W 5% 250 ML IV ONE (12:45)
[2025-07-30] MEDS ORDERED: SOD CHL 0.45% 1,000 ML IV SCH (13:00)
--- NOTE | 2025-07-30 13:11 | DVHPN2 ---
Progress Note - Dictate Date Seen: Jul 30, 2025 Medical Necessity Reason Pt with a Central, PICC or Fol: No Reason for ogden catheter: Strict I&O Subjective The patient continues to have slurry speech and difficult with understanding her. Patient is more alert today to person and place but not to time. Patient has been explained that she had a recurrent stroke. Patient is also complaining of feeling thirsty but is currently NPO do to aspiration risk. vital signs Vital Sign Date Time Temp Pulse Resp B/P (MAP) Pulse Ox O2 Delivery O2 Flow Rate FiO2 07/30/25 10:00 93 Nasal Cannula* 2 28 07/30/25 06:23 91 18 07/30/25 05:00 99.7 124/71 (88) 99.7 Total Intake and Output 07/29/25 07/29/25 07/30/25 15:00 23:00 07:00 Intake Total 750 ml 0 ml 0 ml Output Total 300 ml Balance 450 ml 0 ml 0 ml medications Current Medications Medications Dose Ordered Sig/Juan Route Start Time Stop Time Status Last Admin Dose Admin Nitroglycerin 0.4 mg Q5MINP PRN SL 07/28/25 23:30 Morphine Sulfate 2 mg Q30M PRN IV 07/28/25 23:30 Ceftriaxone Sodium 50 ml @ 100 mls/hr DAILY IV 07/29/25 10:00 Hold 07/29/25 10:30 100 MLS/HR Hydralazine HCl 10 mg Q4HP PRN IV 07/29/25 05:45 07/30/25 00:50 10 MG Piperacillin Sod/ Tazobactam Sod 100 ml @ 25 mls/hr Q8H IV 07/29/25 09:00 07/30/25 09:02 25 MLS/HR Vancomycin HCl 0 ml @ 0 mls/hr PER PHARMACY IV 07/29/25 08:00 Enoxaparin Sodium 90 mg Q12HR SC 07/29/25 10:00 07/30/25 09:06 90 MG Lorazepam 1 mg ONCE PRN IV 07/29/25 10:15 Amino Acids 0 ml @ 0 mls/hr PER PHARMACY IV 07/29/25 14:00 Amino Acids/ Electrolytes/ Dextrose 1,000 ml @ 41 mls/hr DAILY@2200 IV 07/29/25 22:00 07/29/25 22:53 41 MLS/HR Diagnostic Test (Pha) 1 strip Q6HR 07/30/25 00:00 07/30/25 11:45 1 STRIP Insulin Human Regular FOLLOW SLIDING SCALE Q6HR SC 07/30/25 00:00 07/30/25 11:45 2 UNITS Dextrose 50 ml UD IV 07/29/25 22:00 Albuterol 2.5 mg Q4HWA NEB 07/29/25 22:00 07/30/25 10:32 2.5 MG Vancomycin HCl 100 ml @ 200 mls/hr Q12H IV 07/30/25 13:00 Potassium Chloride 100 ml @ 50 mls/hr Q2H IV 07/30/25 12:45 07/30/25 16:44 Sodium Chloride 1,000 ml @ 100 mls/hr Q10H IV 07/30/25 13:00 UNV objective GEN: A&Ox1, NAD, HEENT: NC/AT, EOMI, PERRL CV: S1S2+, RRR Lungs, Bilateral posterior base rales, no wheezing, Abd: Soft, NT, ND, + BS MSK: No left sided movement, patient is able to lift her right arm and right leg CN: Facial droop, unable to complete testing laboratory and microbiology Laboratory Tests 07/30/25 06:38 07/30/25 06:22 Test 07/30/25 06:22 Range/Units Serum Glucose 153 H 74-106 mg/dL Problem List Primary Diagnosis: Multifocal CVA Altered Mental Status likely secondary to CVA Dysphagia Acute Hypernatremia Dehydration Left Lower Lobe Opacity - possible persistent pneumonia Hypokalemia Hypophosphatemia Secondary Diagnosis: Paroxysmal Atrial Fibrillation Left Sided Neglect Assessment/Plan - continue telemetry monitoring - Continue Neuro checks, Treat SBP > 150mmHg or DBP > 90mmHg, multiple embolic strokes from history of underline atrial fibrillation, Lovenox 1mg/Kg SQ BID, Will continue to follow up with neurology recommendations - PT/OT/ST consults have been requested. - IV abx with Zosyn and Vancomycin Day 2, patient WBC count at 15K, patient has likely unresolved pneumonia vs possible aspiration. Pulmonary consult requested. - NPO, Nutrition started with Clinimix, GI will consider placing PEG tube one patient is more stable and has been cleared from Cardiology perspective. - Hypotonic fluids with 1/2NS at 100cc/hr for hypernatremia with repeat BMP at 7 o'clock tonight. - Am labs DVT Prophy; Lovenox 1mg/Kg SQ BID Full Code Dispo: Continue inpatient monitoring. Plan discussed with: Other (niece) RADHA LOPEZ MD Jul 30, 2025 13:11
[2025-07-30] MEDS: VANCOMYCIN 500mg/100mL 100 ML IV SCH (13:40)
[2025-07-30] MEDS: SODIUM CHLORIDE 0.9% 1,000 ML IV SCH (13:45)
--- NOTE | 2025-07-30 14:03 | DVH ---
EXAM: CT CHEST WITHOUT CONTRAST Reason for study/Clinical History: evaluate for pneumonia Comparison Study: XY CHEST XRAY 1 VIEW on DOS: 07/28/25, XY CHEST XRAY 1 VIEW on DOS: 07/21/25 Exam Date: 07/30/2025 01:33 PM TECHNIQUE: Multidetector CT of the chest was performed from the lung apices to the upper abdomen without the use of intravenous contract. Axial, coronal and sagittal multiplanar reformats were performed. Radiation Dose Information: CT Dose: CTDI volume is 4.56 mGy. Dose-length product is 141.8 mGy*cm The dose indicators for CT are the volume Computed Tomography (CT) Dose Index (CTDIvol) and the Dose Length Product (DLP), and are measured in units of mGy and mGy-cm, respectively. These indicators are not patient dose, but values generated from the CT scanner acquisition factors. The report includes radiation exposure data for exposures received during this examination. FINDINGS: Lower neck: Unremarkable. Lungs and Pleura: Multifocal patchy left lung opacities. Small left pleural effusion with adjacent compressive atelectasis, overall decreased in size from prior. Trace right pleural effusion. Lymph nodes: No mediastinal, hilar, or axillary lymphadenopathy. Cardiovascular and Mediastinum: No significant pericardial effusion. Scattered coronary calcifications. Osseous and soft tissues: No suspicious osseous lesions. Upper abdomen: No acute abnormality in the visualized upper abdomen. IMPRESSION: Multifocal patchy left lung opacities, which could represent early pneumonia. Small left and trace right pleural effusions.
[2025-07-30] MEDS: AMINO ACID INFUSION IN D10W 1,000 ML IV SCH ×2 (14:52→21:35)
[2025-07-30] MEDS: POTASSIUM PHOSPHATE 44 MEQ in D5W 5% 250 ML IV ONE (15:47)
--- NOTE | 2025-07-30 16:01 | DVHINCON2 ---
HISTORY OF PRESENT ILLNESS: The patient is an 84-year-old female, who has pneumonia of left lower lobe. I was called to see the patient for further management. She has multiple issues and multiple problems. She had a head fracture with cerebral infarcts in the right parietal, right temporal, and right occipital area. Chest x-ray showed left lower lobe pneumonia. I have been called to consult from Dr. Díaz and Dr. Burton. White count is 15,000, hemoglobin is 9.1. She is on oxygen at this time. Chemistry, sodium is 152. She is hypernatremic. Calcium is 9.0. Brain MRI was done again today and that current MRI show significant increase in the size of the right cerebral infarcts and a new infarct in the left temporal and occipital lobes. Chest x-ray showed left lower lobe infiltrate. Medication-sadler, the patient is already getting antibiotics, Zosyn and vancomycin. She is not able to clear the secretions. She is not able to cough up the secretions. PHYSICAL EXAMINATION: VITAL SIGNS: At this time, heart rate is 68-80. Blood pressure is 145/73. O2 saturation is 94%. GENERAL: On exam, she is ____ on the left side. LUNGS: Diminished breath sounds bilaterally, left more than right side. IMPRESSION: * Left lower lobe pneumonia. * Multiple cerebral infarcts. PLAN: * Add DuoNebs q.6. * Keep the O2 saturation above 92%. Jovan Sen MD MA/HELENA TID: [id number] RECEIPT: [id number]
--- NOTE | 2025-07-30 18:53 | DVHPN2 ---
Progress Note - Dictate Date Seen: Jul 30, 2025 Medical Necessity Reason Pt with a Central, PICC or Fol: No Reason for ogden catheter: Strict I&O Subjective Ms. Calero is a 84 years old female with a history of pneumonia, he was brought to the [facility] from her custodial on 07/28/2025 for feeding tube insertion. She was discharged from the [facility] on 07/22/2025 for right hip fracture and surgical repair. I saw her on 07/21/2025 for stroke (MR positive, she was found to have new onset AFib) I have seen examined the patient along with her nurse, she is awake, he responsive to verbal stimuli, she is responsive me when I am on her left side. She looks more responsive today Urinalysis, 07/29/2025: WBC: 9, urine leukocyte esterase: Negative WBC/HB/PLT/MCV, 07/29/2025: 15/9.1/448/96.2, 07/30/2025: 15/9.1/493/94.9 PT/INR/ABG, 07/28/2025: 10.9/1.03/33.7 Na, 07/28/2025: 152, 07/29/2025: 151, 07/30/25: 150 Liver function tests, 07/29/2025: Unremarkable TG/HDL/LDL/HDL, 07/21/2025: 97/116/68/54 EKG, 07/20/2025: AFib Echocardiogram, 07/19/2025: imited difficult study lvef 75% hyperdynamic LV mild LVH noted normal rv function left atrium enlarged no significant aortic stenosis, HOWEVER THERE IS A LARGE INTRACAVITARY VS LVOT GRADIENT OF >130 MMHG, THIS CAN BE SEEN IN HOCM trace to mild mitral regurg L sided pleural effusion noted CT head 07/18/2025: No acute intracranial abnormality CT head, 07/21/2025: Small acute right parietal lobe infarct CT head, 07/28/25: 1. No acute intracranial hemorrhage. 2. Interval evolution of the previously described right MCA territorial infarct with increased involvement within the right parietal and temporal lobes. There is locoregional mass effect without midline shift. 3. Age-related involutional changes. Chronic microvascular changes. CT chest, 08/07/2025: Multifocal patchy left lung opacities, which could represent early pneumonia. Small left and trace right pleural effusions. CTA head, neck, 07/21/2025: Severe diffuse narrowing of the bilateral M1 segments of the middle cerebral artery and posterior cerebral arteries. Differential includes atherosclerosis and vasculitis. Recommend brain MRI with and without IV contrast to exclude basilar meningitis. Moderate and severe multifocal stenoses of the distal intracranial internal carotid artery secondary to atherosclerosis MRI head, 07/22/25: 1. Acute infarcts in the right parietal, right temporal and right occipital lobe. 2. No intracranial hemorrhage or mass effect. vital signs Vital Sign Date Time Temp Pulse Resp B/P (MAP) Pulse Ox O2 Delivery O2 Flow Rate FiO2 07/30/25 16:46 98.4 84 20 147/83 (104) 92 98.4 07/30/25 10:32 Nasal Cannula* 2 28 Total Intake and Output 07/29/25 07/29/25 07/30/25 15:00 23:00 07:00 Intake Total 750 ml 0 ml 0 ml Output Total 300 ml Balance 450 ml 0 ml 0 ml medications Current Medications Medications Dose Ordered Sig/Juan Route Start Time Stop Time Status Last Admin Dose Admin Nitroglycerin 0.4 mg Q5MINP PRN SL 07/28/25 23:30 Morphine Sulfate 2 mg Q30M PRN IV 07/28/25 23:30 Hydralazine HCl 10 mg Q4HP PRN IV 07/29/25 05:45 07/30/25 00:50 10 MG Piperacillin Sod/ Tazobactam Sod 100 ml @ 25 mls/hr Q8H IV 07/29/25 09:00 07/30/25 09:02 25 MLS/HR Vancomycin HCl 0 ml @ 0 mls/hr PER PHARMACY IV 07/29/25 08:00 Enoxaparin Sodium 90 mg Q12HR SC 07/29/25 10:00 07/30/25 09:06 90 MG Lorazepam 1 mg ONCE PRN IV 07/29/25 10:15 Amino Acids 0 ml @ 0 mls/hr PER PHARMACY IV 07/29/25 14:00 Diagnostic Test (Pha) 1 strip Q6HR 07/30/25 00:00 07/30/25 17:32 1 STRIP Insulin Human Regular FOLLOW SLIDING SCALE Q6HR SC 07/30/25 00:00 07/30/25 17:31 2 UNITS Dextrose 50 ml UD IV 07/29/25 22:00 Albuterol 2.5 mg Q4HWA NEB 07/29/25 22:00 07/30/25 10:32 2.5 MG Vancomycin HCl 100 ml @ 200 mls/hr Q12H IV 07/30/25 13:00 07/30/25 13:40 200 MLS/HR Sodium Chloride 1,000 ml @ 75 mls/hr [id number] IV 07/30/25 13:45 07/30/25 13:45 75 MLS/HR Amino Acids/ Electrolytes/ Dextrose 1,000 ml @ 41 mls/hr DAILY@2200 IV 07/30/25 22:00 Amino Acids/ Electrolytes/ Dextrose 1,000 ml @ 41 mls/hr DAILY@1430 IV 07/30/25 14:30 07/30/25 21:59 07/30/25 14:52 41 MLS/HR objective General: the patient is well developed and nourished. No acute distress. MENTAL STATUS: Left neglect Subjective SPEECH, LANGUAGE, HIGHER CORTICAL FUNCTION: Her voice clear, but she does not answer questions CRANIAL NERVES: Left homonymous hemianopsia. PERRL. EOMs full and conjugate. Facial sensation intact in all three divisions bilaterally. Mandibular strength intact. Facial muscles symmetrical and strength intact. SENSATION: Sensation to touch and pinprick is fine MOTOR: Normal tone in the upper and lower extremity. Normal muscle bulk. No fasciculations. No abnormal movements or posturing. She only move the right arm REFLEXES: Deep tendon reflexes are symmetrical. No pathological reflexes. CEREBELLAR/COORDINATION: Deferred GAIT/STATION: deferred. laboratory and microbiology Laboratory Tests 07/30/25 06:38 07/30/25 06:22 Test 07/30/25 06:22 Range/Units Serum Glucose 153 H 74-106 mg/dL Problem List Dysphagia Acute left-sided weakness Left-sided neglect Left homonymous hemianopsia Enlarged stroke per CT head Acute stroke earlier in 07/2025, likely secondary to atrial fibrillation AFib Hypernatremia Recent right hip fracture status post surgical repair Assessment/Plan Monitoring Supportive treatment Telemetry Lovenox for now, Eliquis on discharge Normal saline 75 cc/hour More recommendation per clinical course This medical document was created using an electronic medical record system with [employer] dictation system. Although this document has been carefully reviewed, there may still be some phonetic and typographical errors. These areas are purely typographical due to imperfections of the software programs, and do not reflect any compromise in the patient's medical care. Prognosis poor Dietary Evaluation Review Comments: Nutrition Recommendation: 1) PPN to supply 0768-4022 kcal & 49-61 gm protein per day 2) If PEG tube is placed: a. Continuous feeding - Jevity 1.2Cal @ 45ml/hr x 24hr. Water flush 110ml if allowed, adjust PRN Start @ 20ml/hr, increase 10ml/hr Q8H until goal is reached. b. Bolus feeding - Jevity 1.2Cal 270ml x 4. Water flush 110ml if allowed, adjust PRN Start @ 100ml, increase 100ml Q8H until goal is reached. TF @ goal volume provides 1296 kcal (100% energy needs), protein 60gm (100% protein needs), and 1312ml water (including flush) 3) Monitor NPO status, lab values, weight trend, and I/O Expected Outcomes/Goals: Intake to meet >75% estimated needs Lab values to improve Fu 2-3 days Body Fat Depletion (Severe): Mod to Severe Depletion Muscle Mass (Severe): Mod to Severe Depletion Protein Calorie Malnutrition: Severe Plan discussed with: Other Total Time (mins): 38 VICK CHÁVEZ MD Jul 30, 2025 18:53
[2025-07-30 19:22] LABS: Anion Gap 13 (5-15); Carbon Dioxide 26 mmol/L (20-31)
[2025-07-30 19:27] LABS: BUN/Creatinine Ratio 35.4 (10.0-20.0); Blood Urea Nitrogen 17 mg/dL (9-23); Glucose 95 mg/dL (74-106)
[2025-07-30 19:30] LABS: Calcium 8.4 mg/dL (8.7-10.4); Chloride 110 mmol/L (98-107); Potassium 3.3 mmol/L (3.5-5.1); Sodium 149 mmol/L (136-145)
[2025-07-30] MEDS: POTASSIUM CHL 20MEQ/100ML 100 ML IV ONE (22:20)
--- NOTE | 2025-07-30 23:19 | DVHPN2 ---
Progress Note - Dictate Date Seen: Jul 30, 2025 Medical Necessity Reason Pt with a Central, PICC or Fol: No Reason for ogden catheter: Strict I&O Subjective Patient was seen and evaluated in follow up. Patient is on 2 LPM NC. The patient continues to have slurry speech and difficult with understanding her. Patient is more alert today to person and place but not to time. WBC 15, HGB 9.1, HCT 27.8, NA 150, K 2.9, CL 113, CA 8.4, AST 59. MRI Brain shows significant increase in size of the right cerebral infarcts as detailed above and new infarcts in the left temporal and occipital lobes. Telemetry reviewed. vital signs Vital Sign Date Time Temp Pulse Resp B/P (MAP) Pulse Ox O2 Delivery O2 Flow Rate FiO2 07/30/25 10:00 93 Nasal Cannula* 2 28 07/30/25 06:23 91 18 07/30/25 05:00 99.7 124/71 (88) 99.7 Total Intake and Output 07/29/25 07/29/25 07/30/25 15:00 23:00 07:00 Intake Total 750 ml 0 ml 0 ml Output Total 300 ml Balance 450 ml 0 ml 0 ml medications Current Medications Medications Dose Ordered Sig/Juan Route Start Time Stop Time Status Last Admin Dose Admin Nitroglycerin 0.4 mg Q5MINP PRN SL 07/28/25 23:30 Morphine Sulfate 2 mg Q30M PRN IV 07/28/25 23:30 Ceftriaxone Sodium 50 ml @ 100 mls/hr DAILY IV 07/29/25 10:00 Hold 07/29/25 10:30 100 MLS/HR Hydralazine HCl 10 mg Q4HP PRN IV 07/29/25 05:45 07/30/25 00:50 10 MG Piperacillin Sod/ Tazobactam Sod 100 ml @ 25 mls/hr Q8H IV 07/29/25 09:00 07/30/25 09:02 25 MLS/HR Vancomycin HCl 0 ml @ 0 mls/hr PER PHARMACY IV 07/29/25 08:00 Enoxaparin Sodium 90 mg Q12HR SC 07/29/25 10:00 07/30/25 09:06 90 MG Lorazepam 1 mg ONCE PRN IV 07/29/25 10:15 Amino Acids 0 ml @ 0 mls/hr PER PHARMACY IV 07/29/25 14:00 Amino Acids/ Electrolytes/ Dextrose 1,000 ml @ 41 mls/hr DAILY@2200 IV 07/29/25 22:00 07/29/25 22:53 41 MLS/HR Diagnostic Test (Pha) 1 strip Q6HR 07/30/25 00:00 07/30/25 11:45 1 STRIP Insulin Human Regular FOLLOW SLIDING SCALE Q6HR SC 07/30/25 00:00 07/30/25 11:45 2 UNITS Dextrose 50 ml UD IV 07/29/25 22:00 Albuterol 2.5 mg Q4HWA NEB 07/29/25 22:00 07/30/25 10:32 2.5 MG Sodium Chloride 1,000 ml @ 75 mls/hr [id number] IV 07/29/25 20:45 07/30/25 10:06 75 MLS/HR Vancomycin HCl 100 ml @ 200 mls/hr Q12H IV 07/30/25 13:00 objective GENERAL: Altered, elderly, frail appearing EYES: PERRL, EOMI. Anicteric. HENT: Moist mucous membranes. LUNGS: Clear to auscultation bilaterally. CARDIOVASCULAR: Regular rate and rhythm. ABDOMEN: Soft, nontender and nondistended. EXTREMITIES: No edema. SKIN: Warm, dry. laboratory and microbiology Laboratory Tests 07/30/25 06:38 07/30/25 06:22 Test 07/30/25 06:22 Range/Units Serum Glucose 153 H 74-106 mg/dL Problem List Multifocal CVA. Altered mental status. Dysphagia. Hypernatremia. Dehydration. Left lower lobe opacity. Paroxysmal atrial fibrillation. Assessment/Plan Continued all current supportive medical care. DVT prophylactics. IV Hydralazine for SBP >160. Morphine for pain management. Nitro SL. IV antibiotics as ordered. Additional plan as per the hospital course. Plan discussed with: KHADAR Dumont MD Jul 30, 2025 12:42
[2025-07-31] VITALS (17 sets, daily range): BP systolic 124–160; BP diastolic 70–91; PULSE 60–92; RESP 15–19; TEMP 97.1–98.8; O2SAT 90–100
[2025-07-31 06:06] LABS: Hematocrit 30.2 % (36.0-46.0); Hemoglobin 10.0 g/dL (12.2-16.2); Mean Corpuscular Hemoglobin 31.4 pg (28.0-32.0); Mean Corpuscular Volume 94.5 fL (80.0-100.0); Nucleated Red Blood Cells % 0.1 %
[2025-07-31 06:15] LABS: Alanine Aminotransferase 19 U/L (7-40); Alkaline Phosphatase 60 U/L (46-116); Anion Gap 10 (5-15); BUN/Creatinine Ratio 39.0 (10.0-20.0); Blood Urea Nitrogen 16 mg/dL (9-23); Carbon Dioxide 26 mmol/L (20-31); Total Protein 5.9 g/dL (5.7-8.2)
[2025-07-31 06:16] LABS: Bilirubin, Total 0.6 mg/dL (0.2-1.0)
[2025-07-31 06:19] LABS: Albumin 2.7 g/dL (3.2-4.8); Calcium 8.1 mg/dL (8.7-10.4); Chloride 109 mmol/L (98-107); Glucose 122 mg/dL (74-106); Magnesium 1.5 mg/dL (1.6-2.6); Potassium 3.0 mmol/L (3.5-5.1); Sodium 145 mmol/L (136-145)
[2025-07-31 07:16] LABS: Iron 37.0 ug/dL (50-170); Total Iron Binding Capacity 197.0 ug/dL (250-425)
--- NOTE | 2025-07-31 11:21 | DVHPN2 ---
Progress Note Date Seen: Jul 31, 2025 Resident Creating Document: SHAYLA FARLEY RESIDENT Medical Necessity Reason Pt with a Central, PICC or Fol: No Reason for ogden catheter: Strict I&O Subjective Review of Systems Vitally stable, WBC trending down H&H stable Objective vital signs Vital Sign Date Time Temp Pulse Resp B/P (MAP) Pulse Ox O2 Delivery O2 Flow Rate FiO2 07/31/25 08:33 98.5 89 17 149/77 (101) 95 98.5 07/31/25 07:22 Room Air* 0 21 Total Intake and Output 07/30/25 07/30/25 07/31/25 15:00 23:00 07:00 Intake Total 100 ml 260 ml 300 ml Output Total 400 ml 450 ml Balance 100 ml -140 ml -150 ml medications Current Medications Medications Dose Ordered Sig/Juan Route Start Time Stop Time Status Last Admin Dose Admin Nitroglycerin 0.4 mg Q5MINP PRN SL 07/28/25 23:30 Morphine Sulfate 2 mg Q30M PRN IV 07/28/25 23:30 Hydralazine HCl 10 mg Q4HP PRN IV 07/29/25 05:45 07/30/25 00:50 10 MG Piperacillin Sod/ Tazobactam Sod 100 ml @ 25 mls/hr Q8H IV 07/29/25 09:00 07/31/25 01:43 25 MLS/HR Vancomycin HCl 0 ml @ 0 mls/hr PER PHARMACY IV 07/29/25 08:00 Enoxaparin Sodium 90 mg Q12HR SC 07/29/25 10:00 07/30/25 21:47 90 MG Lorazepam 1 mg ONCE PRN IV 07/29/25 10:15 Amino Acids 0 ml @ 0 mls/hr PER PHARMACY IV 07/29/25 14:00 Diagnostic Test (Pha) 1 strip Q6HR 07/30/25 00:00 07/31/25 05:31 1 STRIP Insulin Human Regular FOLLOW SLIDING SCALE Q6HR SC 07/30/25 00:00 07/31/25 05:33 2 UNITS Dextrose 50 ml UD IV 07/29/25 22:00 Albuterol 2.5 mg Q4HWA NEB 07/29/25 22:00 07/31/25 10:35 2.5 MG Vancomycin HCl 100 ml @ 200 mls/hr Q12H IV 07/30/25 13:00 07/31/25 00:40 200 MLS/HR Potassium Chloride 100 ml @ 50 mls/hr Q2H IV 07/30/25 12:45 07/30/25 16:44 Cancel Sodium Chloride 1,000 ml @ 75 mls/hr [id number] IV 07/30/25 13:45 07/30/25 13:45 75 MLS/HR Amino Acids/ Electrolytes/ Dextrose 1,000 ml @ 41 mls/hr DAILY@2200 IV 07/30/25 22:00 07/30/25 21:35 41 MLS/HR Examination Thin frail-appearing elderly male lying in the bed General: Frail, afebrile, palor, mucosae are moist Cardiovascular: Regular S1 and S2. No murmurs, gallops or rubs. Respiratory: Decreased breath sounds bilaterally on room air Abdomen: Soft, nontender, nondistended, hypoactive bowel sounds, no rebound tenderness, no organomegaly, no masses Genitourinary: Deferred laboratory and microbiology Laboratory Tests 07/31/25 05:31 Test 07/31/25 05:31 Range/Units Serum Glucose 122 H 74-106 mg/dL Microbiology Date/Time Source Procedure Growth Status 07/30/25 03:30 Nose MRSA Screen - Final Complete Labs and/or images reviewed: Labs reviewed by me, Image(s) reviewed by me Problem List/Assessment/Plan Problem List/Assessment/Plan Dysphagia Failure to thrive Rule out acute CVA Pneumonia likely Gram-positive and negative Anemia likely normocytic Altered mental status Atrial fibrillation Severe protein calorie malnutrition Hip surgery MRI brain shows Significant increase in size of the right cerebral infarcts as detailed above and new infarcts in the left temporal and occipital lobes. Plan: Recommendation: Dr. Waters Continue NPO, IV Clinimix Possible EGD with PEG placement when patient is stable, and cleared by Neurology for procedure Supportive care recommended at this time We will continue to monitor patient Follow up with ferritin Iron panel appearing to be consistent with anemia of chronic disease Replenish K and Mag Follow up with Neurology recommendation Currently on Lovenox Case discussed Dr. Waters Plan discussed with: Other (Nurse) Dietary Evaluation Review Comments: Nutrition Recommendation: 1) PPN to supply 3270-5601 kcal & 49-61 gm protein per day 2) If PEG tube is placed: a. Continuous feeding - Jevity 1.2Cal @ 45ml/hr x 24hr. Water flush 110ml if allowed, adjust PRN Start @ 20ml/hr, increase 10ml/hr Q8H until goal is reached. b. Bolus feeding - Jevity 1.2Cal 270ml x 4. Water flush 110ml if allowed, adjust PRN Start @ 100ml, increase 100ml Q8H until goal is reached. TF @ goal volume provides 1296 kcal (100% energy needs), protein 60gm (100% protein needs), and 1312ml water (including flush) 3) Monitor NPO status, lab values, weight trend, and I/O Expected Outcomes/Goals: Intake to meet >75% estimated needs Lab values to improve Fu 2-3 days Body Fat Depletion (Severe): Mod to Severe Depletion Muscle Mass (Severe): Mod to Severe Depletion Protein Calorie Malnutrition: Severe SHAYLA FARLEY RESIDENT Jul 31, 2025 11:21
--- NOTE | 2025-07-31 11:58 | DVHPN2 ---
Progress Note - Dictate Date Seen: Jul 31, 2025 Medical Necessity Reason Pt with a Central, PICC or Fol: No The following are medically ne: Ogden Catheter Reason for ogden catheter: Strict I&O Subjective Patient continues to have slurry speech with difficulty understanding the patient. She is easily oriented to location. Patient had no acute events overnight. Family is at bedside. vital signs Vital Sign Date Time Temp Pulse Resp B/P (MAP) Pulse Ox O2 Delivery O2 Flow Rate FiO2 07/31/25 08:33 98.5 89 17 149/77 (101) 95 98.5 07/31/25 07:22 Room Air* 0 21 Total Intake and Output 07/30/25 07/30/25 07/31/25 15:00 23:00 07:00 Intake Total 100 ml 260 ml 300 ml Output Total 400 ml 450 ml Balance 100 ml -140 ml -150 ml medications Current Medications Medications Dose Ordered Sig/Juan Route Start Time Stop Time Status Last Admin Dose Admin Nitroglycerin 0.4 mg Q5MINP PRN SL 07/28/25 23:30 Morphine Sulfate 2 mg Q30M PRN IV 07/28/25 23:30 Hydralazine HCl 10 mg Q4HP PRN IV 07/29/25 05:45 07/30/25 00:50 10 MG Piperacillin Sod/ Tazobactam Sod 100 ml @ 25 mls/hr Q8H IV 07/29/25 09:00 07/31/25 09:00 25 MLS/HR Vancomycin HCl 0 ml @ 0 mls/hr PER PHARMACY IV 07/29/25 08:00 Enoxaparin Sodium 90 mg Q12HR SC 07/29/25 10:00 07/30/25 21:47 90 MG Lorazepam 1 mg ONCE PRN IV 07/29/25 10:15 Amino Acids 0 ml @ 0 mls/hr PER PHARMACY IV 07/29/25 14:00 Diagnostic Test (Pha) 1 strip Q6HR 07/30/25 00:00 07/31/25 05:31 1 STRIP Insulin Human Regular FOLLOW SLIDING SCALE Q6HR SC 07/30/25 00:00 07/31/25 05:33 2 UNITS Dextrose 50 ml UD IV 07/29/25 22:00 Albuterol 2.5 mg Q4HWA NEB 07/29/25 22:00 07/31/25 10:35 2.5 MG Vancomycin HCl 100 ml @ 200 mls/hr Q12H IV 07/30/25 13:00 07/31/25 00:40 200 MLS/HR Potassium Chloride 100 ml @ 50 mls/hr Q2H IV 07/30/25 12:45 07/30/25 16:44 Cancel Sodium Chloride 1,000 ml @ 75 mls/hr [id number] IV 07/30/25 13:45 07/30/25 13:45 75 MLS/HR Amino Acids/ Electrolytes/ Dextrose 1,000 ml @ 41 mls/hr DAILY@2200 IV 07/30/25 22:00 07/30/25 21:35 41 MLS/HR Magnesium Sulfate/ Dextrose 100 ml @ 100 mls/hr Q1HR IV 07/31/25 12:00 07/31/25 13:59 UNV objective GEN: A&Ox2, NAD, HEENT: NC/AT, EOMI, PERRL CV: S1S2+, RRR Lungs: minimal bilateral posterior base rales, no wheezing or rhonchi Abd: Soft, NT, ND, + BS MSK: patient is able to lift her right arm and right leg CN: left facial droop, laboratory and microbiology Laboratory Tests 07/31/25 05:31 Test 07/31/25 05:31 Range/Units Serum Glucose 122 H 74-106 mg/dL Problem List Primary Diagnosis: Multifocal CVA Altered Mental Status likely secondary to CVA Dysphagia Acute Hypernatremia - resolved Dehydration- resolved Multifocal Pneumonia Hypokalemia Hypophosphatemia Secondary Diagnosis: Paroxysmal Atrial Fibrillation Left Sided Neglect Assessment/Plan - continue telemetry monitoring - Continue Neuro checks, Treat SBP > 150mmHg or DBP > 90mmHg, multiple embolic strokes from history of underline atrial fibrillation, Lovenox 1mg/Kg SQ BID, Will continue to follow up with neurology recommendations - IV abx with Zosyn and Vancomycin Day 3, WBC count at downt to 10K from 15K. CT chest with some residual left sided pleural effusion and multifocal patchy opacities in the left lung base resembling early pneumonia. - NPO, Clinimix for artificial Nutrition, GI will consider placing PEG tube possibly this Saturday. - Isotonic fluids with 0.9NS at 75cc/hr - continue aspiration and pressure ulcer precautions. - Am labs DVT Prophy; Lovenox 1mg/Kg SQ BID Full Code Dispo: Continue inpatient monitoring. Family discussion took place about hospice placement and DNR code. Patient family to also discuss if they want to continue with PEG tube placement. Dietary Evaluation Review Comments: Nutrition Recommendation: 1) PPN to supply 6282-6120 kcal & 49-61 gm protein per day 2) If PEG tube is placed: a. Continuous feeding - Jevity 1.2Cal @ 45ml/hr x 24hr. Water flush 110ml if allowed, adjust PRN Start @ 20ml/hr, increase 10ml/hr Q8H until goal is reached. b. Bolus feeding - Jevity 1.2Cal 270ml x 4. Water flush 110ml if allowed, adjust PRN Start @ 100ml, increase 100ml Q8H until goal is reached. TF @ goal volume provides 1296 kcal (100% energy needs), protein 60gm (100% protein needs), and 1312ml water (including flush) 3) Monitor NPO status, lab values, weight trend, and I/O Expected Outcomes/Goals: Intake to meet >75% estimated needs Lab values to improve Fu 2-3 days Body Fat Depletion (Severe): Mod to Severe Depletion Muscle Mass (Severe): Mod to Severe Depletion Protein Calorie Malnutrition: Severe Plan discussed with: Patient, Other (Niece) RADHA LOPEZ MD Jul 31, 2025 11:58
[2025-07-31] MEDS: MAGNESIUM SULFATE 1GM/100ML 100 ML IV SCH ×2 (12:00→21:18)
[2025-07-31] MEDS: POTASSIUM PHOSPHATE 44 MEQ in D5W 5% 250 ML IV ONE (14:36)
[2025-07-31] MEDS: POTASSIUM CHL 20MEQ/100ML 100 ML IV ONE (20:02)
--- NOTE | 2025-07-31 22:51 | DVHPN2 ---
Progress Note - Dictate Date Seen: Jul 31, 2025 Medical Necessity Reason Pt with a Central, PICC or Fol: No The following are medically ne: Ogden Catheter Reason for ogden catheter: Strict I&O Subjective Patient was seen and evaluated in follow up. Family at bedside. Patient remains with slurry speech. Difficulty with understanding her. She is easily oriented to location. K 3, CL 109, CA 8.1, AST 49. Telemetry reviewed. vital signs Vital Sign Date Time Temp Pulse Resp B/P (MAP) Pulse Ox O2 Delivery O2 Flow Rate FiO2 07/31/25 12:39 98.2 92 18 160/91 (114) 90 98.2 07/31/25 07:22 Room Air* 0 21 Total Intake and Output 07/30/25 07/30/25 07/31/25 15:00 23:00 07:00 Intake Total 100 ml 260 ml 300 ml Output Total 400 ml 450 ml Balance 100 ml -140 ml -150 ml medications Current Medications Medications Dose Ordered Sig/Juan Route Start Time Stop Time Status Last Admin Dose Admin Nitroglycerin 0.4 mg Q5MINP PRN SL 07/28/25 23:30 Morphine Sulfate 2 mg Q30M PRN IV 07/28/25 23:30 Hydralazine HCl 10 mg Q4HP PRN IV 07/29/25 05:45 07/30/25 00:50 10 MG Piperacillin Sod/ Tazobactam Sod 100 ml @ 25 mls/hr Q8H IV 07/29/25 09:00 07/31/25 09:00 25 MLS/HR Vancomycin HCl 0 ml @ 0 mls/hr PER PHARMACY IV 07/29/25 08:00 Enoxaparin Sodium 90 mg Q12HR SC 07/29/25 10:00 07/30/25 21:47 90 MG Lorazepam 1 mg ONCE PRN IV 07/29/25 10:15 Amino Acids 0 ml @ 0 mls/hr PER PHARMACY IV 07/29/25 14:00 Diagnostic Test (Pha) 1 strip Q6HR 07/30/25 00:00 07/31/25 11:36 1 STRIP Insulin Human Regular FOLLOW SLIDING SCALE Q6HR SC 07/30/25 00:00 07/31/25 05:33 2 UNITS Dextrose 50 ml UD IV 07/29/25 22:00 Albuterol 2.5 mg Q4HWA NEB 07/29/25 22:00 07/31/25 10:35 2.5 MG Vancomycin HCl 100 ml @ 200 mls/hr Q12H IV 07/30/25 13:00 07/31/25 00:40 200 MLS/HR Potassium Chloride 100 ml @ 50 mls/hr Q2H IV 07/30/25 12:45 07/30/25 16:44 Cancel Sodium Chloride 1,000 ml @ 75 mls/hr [id number] IV 07/30/25 13:45 07/30/25 13:45 75 MLS/HR Amino Acids/ Electrolytes/ Dextrose 1,000 ml @ 41 mls/hr DAILY@2200 IV 07/30/25 22:00 07/30/25 21:35 41 MLS/HR Magnesium Sulfate/ Dextrose 100 ml @ 100 mls/hr Q1HR IV 07/31/25 12:00 07/31/25 13:59 objective GENERAL: Altered, elderly, frail appearing EYES: PERRL, EOMI. Anicteric. HENT: Moist mucous membranes. LUNGS: Clear to auscultation bilaterally. CARDIOVASCULAR: Regular rate and rhythm. ABDOMEN: Soft, nontender and nondistended. EXTREMITIES: No edema. SKIN: Warm, dry. laboratory and microbiology Laboratory Tests 07/31/25 05:31 Test 07/31/25 05:31 Range/Units Serum Glucose 122 H 74-106 mg/dL Problem List Multifocal CVA. Altered mental status. Dysphagia. Hypernatremia. Dehydration. Left lower lobe opacity. Paroxysmal atrial fibrillation. Assessment/Plan Continued all current supportive medical care. DVT prophylactics. IV Hydralazine for SBP >160. Morphine for pain management. Nitro SL. IV antibiotics as ordered. Additional plan as per the hospital course. Dietary Evaluation Review Comments: Nutrition Recommendation: 1) PPN to supply 2777-4502 kcal & 49-61 gm protein per day 2) If PEG tube is placed: a. Continuous feeding - Jevity 1.2Cal @ 45ml/hr x 24hr. Water flush 110ml if allowed, adjust PRN Start @ 20ml/hr, increase 10ml/hr Q8H until goal is reached. b. Bolus feeding - Jevity 1.2Cal 270ml x 4. Water flush 110ml if allowed, adjust PRN Start @ 100ml, increase 100ml Q8H until goal is reached. TF @ goal volume provides 1296 kcal (100% energy needs), protein 60gm (100% protein needs), and 1312ml water (including flush) 3) Monitor NPO status, lab values, weight trend, and I/O Expected Outcomes/Goals: Intake to meet >75% estimated needs Lab values to improve Fu 2-3 days Body Fat Depletion (Severe): Mod to Severe Depletion Muscle Mass (Severe): Mod to Severe Depletion Protein Calorie Malnutrition: Severe Plan discussed with: Patient KHADAR MAY MD Jul 31, 2025 13:50
[2025-08-01] VITALS (12 sets, daily range): BP systolic 120–149; BP diastolic 68–87; PULSE 77–97; RESP 15–18; TEMP 97.2–98.5; O2SAT 93–100
[2025-08-01 06:11] LABS: Hemoglobin 9.8 g/dL (12.2-16.2); Nucleated Red Blood Cells % 0.0 %
[2025-08-01 06:14] LABS: Hematocrit 29.6 % (36.0-46.0); Mean Corpuscular Hemoglobin 31.4 pg (28.0-32.0); Mean Corpuscular Volume 94.4 fL (80.0-100.0)
[2025-08-01 06:28] LABS: Alanine Aminotransferase 19 U/L (7-40); Alkaline Phosphatase 58 U/L (46-116); Anion Gap 9 (5-15); BUN/Creatinine Ratio 28.6 (10.0-20.0); Blood Urea Nitrogen 12 mg/dL (9-23); Carbon Dioxide 26 mmol/L (20-31); Magnesium 2.1 mg/dL (1.6-2.6); Potassium 3.6 mmol/L (3.5-5.1); Sodium 142 mmol/L (136-145)
[2025-08-01 06:29] LABS: Albumin 2.6 g/dL (3.2-4.8); Bilirubin, Total 0.5 mg/dL (0.2-1.0); Calcium 8.0 mg/dL (8.7-10.4); Chloride 107 mmol/L (98-107); Glucose 107 mg/dL (74-106); Total Protein 5.6 g/dL (5.7-8.2)
--- NOTE | 2025-08-01 11:24 | MEDREC ---
[facility] ASP Intervention Section I [facility] ASP Intervention: Deescalate AB based on CS (PLEASE CONSIDER D/C VANCOMYCIN - NARES SCREENING FOR MRSA HAS A HIGH SPECIFICITY AND NEGATIVE PREDICTIVE VALUE FOR RULING OUT MRSA PNEUMONIA) LORRAINE HOLLEY PHARMACIST Aug 01, 2025 11:24
[2025-08-01] MEDS: VANCOMYCIN 500mg/100mL 100 ML IV SCH (13:00)
[2025-08-01] MEDS: MORPHINE SULFATE 4 MG/ML SYR/VIAL IV PRN (13:26)
--- NOTE | 2025-08-01 14:59 | DVHPN2 ---
Progress Note - Dictate Date Seen: Aug 01, 2025 Medical Necessity Reason Pt with a Central, PICC or Fol: No The following are medically ne: Ogden Catheter Reason for ogden catheter: Strict I&O Subjective Patient continues to have gurgled speech. Patient has distant family at bedside visiting. Patient had no acute events overnight. vital signs Vital Sign Date Time Temp Pulse Resp B/P (MAP) Pulse Ox O2 Delivery O2 Flow Rate FiO2 08/01/25 13:26 89 18 148/74 08/01/25 12:35 98.0 95 98.0 08/01/25 08:00 Nasal Cannula* 2 28 Total Intake and Output 07/31/25 07/31/25 08/01/25 15:00 23:00 07:00 Intake Total 200 ml 200 ml Output Total 150 ml 300 ml Balance 50 ml -100 ml medications Current Medications Medications Dose Ordered Sig/Juan Route Start Time Stop Time Status Last Admin Dose Admin Nitroglycerin 0.4 mg Q5MINP PRN SL 07/28/25 23:30 Morphine Sulfate 2 mg Q30M PRN IV 07/28/25 23:30 Hydralazine HCl 10 mg Q4HP PRN IV 07/29/25 05:45 07/30/25 00:50 10 MG Piperacillin Sod/ Tazobactam Sod 100 ml @ 25 mls/hr Q8H IV 07/29/25 09:00 08/01/25 10:25 25 MLS/HR Vancomycin HCl 0 ml @ 0 mls/hr PER PHARMACY IV 07/29/25 08:00 Enoxaparin Sodium 90 mg Q12HR SC 07/29/25 10:00 08/01/25 10:26 90 MG Lorazepam 1 mg ONCE PRN IV 07/29/25 10:15 Amino Acids 0 ml @ 0 mls/hr PER PHARMACY IV 07/29/25 14:00 Diagnostic Test (Pha) 1 strip Q6HR 07/30/25 00:00 08/01/25 11:27 1 STRIP Insulin Human Regular FOLLOW SLIDING SCALE Q6HR SC 07/30/25 00:00 08/01/25 00:02 2 UNITS Dextrose 50 ml UD IV 07/29/25 22:00 Albuterol 2.5 mg Q4HWA NEB 07/29/25 22:00 08/01/25 07:10 2.5 MG Potassium Chloride 100 ml @ 50 mls/hr Q2H IV 07/30/25 12:45 07/30/25 16:44 Cancel Sodium Chloride 1,000 ml @ 75 mls/hr [id number] IV 07/30/25 13:45 08/01/25 05:45 75 MLS/HR Amino Acids/ Electrolytes/ Dextrose 1,000 ml @ 41 mls/hr DAILY@2200 IV 07/30/25 22:00 07/31/25 21:48 41 MLS/HR Vancomycin HCl 100 ml @ 200 mls/hr Q8H IV 08/01/25 13:00 Morphine Sulfate 2 mg Q4HPRN PRN IV 08/01/25 13:30 08/01/25 13:26 2 MG objective GEN: A&Ox2, NAD, HEENT: NC/AT, EOMI, PERRL CV: S1S2+, RRR Lungs: minimal bilateral posterior base rales, no wheezing or rhonchi Abd: Soft, NT, ND, + BS MSK: patient is able to lift her right arm and right leg laboratory and microbiology Laboratory Tests 08/01/25 05:19 Test 08/01/25 05:19 Range/Units Serum Glucose 107 H 74-106 mg/dL Problem List Primary Diagnosis: Multifocal CVA Altered Mental Status likely secondary to CVA Multifocal Pneumonia Dysphagia Acute Hypernatremia - resolved Dehydration- resolved Hypokalemia - resolved Hypophosphatemia - resolved Secondary Diagnosis: Paroxysmal Atrial Fibrillation Left Sided Neglect Assessment/Plan - continue telemetry monitoring - child support case officer consulted as family requesting patient to be placed on Hospice and do not want to have PEG tube placement and artificial nutrition. - Hydralazine 10mg IV PRN Q 6 hours for SBP > 150mmHg or DBP > 90mmHg, multiple embolic strokes from history of underline atrial fibrillation, Lovenox 1mg/Kg SQ BID, appreciate neurology recommendations - IV abx with Zosyn and Vancomycin Day 4, WBC count at downt to 8.5K. CT chest with some residual left sided pleural effusion and multifocal patchy opacities in the left lung base resembling early pneumonia. - NPO, Clinimix for artificial Nutrition - Isotonic fluids with 0.9NS at 75cc/hr - continue aspiration and pressure ulcer precautions. - Am labs DVT Prophy; Lovenox 1mg/Kg SQ BID Full Code Dispo: child support case officer has been consulted for hospice evaluation and placement for end of life care. Will attempt to get a hold of family to discuss DNR and comfort care measures. Dietary Evaluation Review Comments: Nutrition Recommendation: 1) PPN to supply 7980-2468 kcal & 49-61 gm protein per day 2) If PEG tube is placed: a. Continuous feeding - Jevity 1.2Cal @ 45ml/hr x 24hr. Water flush 110ml if allowed, adjust PRN Start @ 20ml/hr, increase 10ml/hr Q8H until goal is reached. b. Bolus feeding - Jevity 1.2Cal 270ml x 4. Water flush 110ml if allowed, adjust PRN Start @ 100ml, increase 100ml Q8H until goal is reached. TF @ goal volume provides 1296 kcal (100% energy needs), protein 60gm (100% protein needs), and 1312ml water (including flush) 3) Monitor NPO status, lab values, weight trend, and I/O Expected Outcomes/Goals: Intake to meet >75% estimated needs Lab values to improve Fu 2-3 days Body Fat Depletion (Severe): Mod to Severe Depletion Muscle Mass (Severe): Mod to Severe Depletion Protein Calorie Malnutrition: Severe Plan discussed with: Other (family at bedside but not POA/Niece, attempted to contact niece (Margie) but no response) RADHA LOPEZ MD Aug 01, 2025 14:59
--- NOTE | 2025-08-01 15:51 | MEDREC ---
[facility] [place] [facility] Intervention Section I [facility] Intervention: Deescalate AB based on CS (PLEASE CONSIDER D/C VANCOMYCIN - NARES SCREENING FOR MRSA HAS A HIGH SPECIFICITY AND NEGATIVE PREDICTIVE VALUE FOR RULING OUT MRSA PNEUMONIA) LORRAINE HOLLEY PHARMACIST Aug 01, 2025 15:51
--- NOTE | 2025-08-01 19:33 | DVHPN2 ---
Progress Note - Dictate Date Seen: Aug 01, 2025 Medical Necessity Reason Pt with a Central, PICC or Fol: No The following are medically ne: Ogden Catheter Reason for ogden catheter: Strict I&O Subjective Patient was seen and evaluated in follow up. Patient complains of 7/10 right hip pain. HGB 9.8, HCT 29.6, CA 8, AST 48. Telemetry reviewed. vital signs Vital Sign Date Time Temp Pulse Resp B/P (MAP) Pulse Ox O2 Delivery O2 Flow Rate FiO2 08/01/25 13:26 89 18 148/74 08/01/25 12:35 98.0 95 98.0 08/01/25 08:00 Nasal Cannula* 2 28 Total Intake and Output 07/31/25 07/31/25 08/01/25 15:00 23:00 07:00 Intake Total 200 ml 200 ml Output Total 150 ml 300 ml Balance 50 ml -100 ml medications Current Medications Medications Dose Ordered Sig/Juan Route Start Time Stop Time Status Last Admin Dose Admin Nitroglycerin 0.4 mg Q5MINP PRN SL 07/28/25 23:30 Morphine Sulfate 2 mg Q30M PRN IV 07/28/25 23:30 Hydralazine HCl 10 mg Q4HP PRN IV 07/29/25 05:45 07/30/25 00:50 10 MG Piperacillin Sod/ Tazobactam Sod 100 ml @ 25 mls/hr Q8H IV 07/29/25 09:00 08/01/25 10:25 25 MLS/HR Vancomycin HCl 0 ml @ 0 mls/hr PER PHARMACY IV 07/29/25 08:00 Enoxaparin Sodium 90 mg Q12HR SC 07/29/25 10:00 08/01/25 10:26 90 MG Lorazepam 1 mg ONCE PRN IV 07/29/25 10:15 Amino Acids 0 ml @ 0 mls/hr PER PHARMACY IV 07/29/25 14:00 Diagnostic Test (Pha) 1 strip Q6HR 07/30/25 00:00 08/01/25 11:27 1 STRIP Insulin Human Regular FOLLOW SLIDING SCALE Q6HR SC 07/30/25 00:00 08/01/25 00:02 2 UNITS Dextrose 50 ml UD IV 07/29/25 22:00 Albuterol 2.5 mg Q4HWA NEB 07/29/25 22:00 08/01/25 07:10 2.5 MG Potassium Chloride 100 ml @ 50 mls/hr Q2H IV 07/30/25 12:45 07/30/25 16:44 Cancel Sodium Chloride 1,000 ml @ 75 mls/hr [id number] IV 07/30/25 13:45 08/01/25 05:45 75 MLS/HR Amino Acids/ Electrolytes/ Dextrose 1,000 ml @ 41 mls/hr DAILY@2200 IV 07/30/25 22:00 07/31/25 21:48 41 MLS/HR Vancomycin HCl 100 ml @ 200 mls/hr Q8H IV 08/01/25 13:00 Morphine Sulfate 2 mg Q4HPRN PRN IV 08/01/25 13:30 08/01/25 13:26 2 MG objective GENERAL: Altered, elderly, frail appearing EYES: PERRL, EOMI. Anicteric. HENT: Moist mucous membranes. LUNGS: Clear to auscultation bilaterally. CARDIOVASCULAR: Regular rate and rhythm. ABDOMEN: Soft, nontender and nondistended. EXTREMITIES: No edema. SKIN: Warm, dry. laboratory and microbiology Laboratory Tests 08/01/25 05:19 Test 08/01/25 05:19 Range/Units Serum Glucose 107 H 74-106 mg/dL Problem List Multifocal CVA. Altered mental status. Dysphagia. Hypernatremia. Dehydration. Left lower lobe opacity. Paroxysmal atrial fibrillation. Assessment/Plan Continued all current supportive medical care. DVT prophylactics. IV Hydralazine for SBP >160. Morphine for pain management. Nitro SL. IV antibiotics as ordered. Additional plan as per the hospital course. Dietary Evaluation Review Comments: Nutrition Recommendation: 1) PPN to supply 9069-8643 kcal & 49-61 gm protein per day 2) If PEG tube is placed: a. Continuous feeding - Jevity 1.2Cal @ 45ml/hr x 24hr. Water flush 110ml if allowed, adjust PRN Start @ 20ml/hr, increase 10ml/hr Q8H until goal is reached. b. Bolus feeding - Jevity 1.2Cal 270ml x 4. Water flush 110ml if allowed, adjust PRN Start @ 100ml, increase 100ml Q8H until goal is reached. TF @ goal volume provides 1296 kcal (100% energy needs), protein 60gm (100% protein needs), and 1312ml water (including flush) 3) Monitor NPO status, lab values, weight trend, and I/O Expected Outcomes/Goals: Intake to meet >75% estimated needs Lab values to improve Fu 2-3 days Body Fat Depletion (Severe): Mod to Severe Depletion Muscle Mass (Severe): Mod to Severe Depletion Protein Calorie Malnutrition: Severe Plan discussed with: Other KHADAR MAY MD Aug 01, 2025 13:40
--- NOTE | 2025-08-01 19:45 | DVHPN2 ---
Progress Note - Dictate Date Seen: Aug 01, 2025 Medical Necessity Reason Pt with a Central, PICC or Fol: No The following are medically ne: Odgen Catheter Reason for ogden catheter: Strict I&O Subjective Patient is awake somewhat altered Patient continues to have gurgled speech. Patient has distant family at bedside visiting. Patient had no acute events overnight. vital signs Vital Sign Date Time Temp Pulse Resp B/P (MAP) Pulse Ox O2 Delivery O2 Flow Rate FiO2 08/01/25 18:43 95 Room Air 08/01/25 18:43 88 16 08/01/25 18:43 0 21 21 08/01/25 16:52 98.5 128/87 (101) 98.5 Total Intake and Output 07/31/25 07/31/25 08/01/25 15:00 23:00 07:00 Intake Total 200 ml 200 ml Output Total 150 ml 300 ml Balance 50 ml -100 ml medications Current Medications Medications Dose Ordered Sig/Juan Route Start Time Stop Time Status Last Admin Dose Admin Nitroglycerin 0.4 mg Q5MINP PRN SL 07/28/25 23:30 Morphine Sulfate 2 mg Q30M PRN IV 07/28/25 23:30 Hydralazine HCl 10 mg Q4HP PRN IV 07/29/25 05:45 07/30/25 00:50 10 MG Piperacillin Sod/ Tazobactam Sod 100 ml @ 25 mls/hr Q8H IV 07/29/25 09:00 08/01/25 10:25 25 MLS/HR Vancomycin HCl 0 ml @ 0 mls/hr PER PHARMACY IV 07/29/25 08:00 Enoxaparin Sodium 90 mg Q12HR SC 07/29/25 10:00 Hold 08/01/25 10:26 90 MG Lorazepam 1 mg ONCE PRN IV 07/29/25 10:15 Amino Acids 0 ml @ 0 mls/hr PER PHARMACY IV 07/29/25 14:00 Diagnostic Test (Pha) 1 strip Q6HR 07/30/25 00:00 08/01/25 18:00 1 STRIP Insulin Human Regular FOLLOW SLIDING SCALE Q6HR SC 07/30/25 00:00 08/01/25 00:02 2 UNITS Dextrose 50 ml UD IV 07/29/25 22:00 Albuterol 2.5 mg Q4HWA NEB 07/29/25 22:00 12/14/25 18:43 2.5 MG Potassium Chloride 100 ml @ 50 mls/hr Q2H IV 07/30/25 12:45 07/30/25 16:44 Cancel Sodium Chloride 1,000 ml @ 75 mls/hr [id number] IV 07/30/25 13:45 08/01/25 05:45 75 MLS/HR Amino Acids/ Electrolytes/ Dextrose 1,000 ml @ 41 mls/hr DAILY@2200 IV 07/30/25 22:00 07/31/25 21:48 41 MLS/HR Vancomycin HCl 100 ml @ 200 mls/hr Q8H IV 08/01/25 13:00 Morphine Sulfate 2 mg Q4HPRN PRN IV 08/01/25 13:30 08/01/25 13:26 2 MG objective GEN: A&Ox2, NAD, HEENT: NC/AT, EOMI, PERRL CV: S1S2+, RRR Lungs: minimal bilateral posterior base rales, no wheezing or rhonchi Abd: Soft, NT, ND, + BS MSK: patient is able to lift her right arm and right leg laboratory and microbiology Laboratory Tests 08/01/25 05:19 Test 08/01/25 05:19 Range/Units Serum Glucose 107 H 74-106 mg/dL Problems(with codes): (1) AMS (altered mental status) (2) Unable to eat (3) CVA (cerebral vascular accident) (4) Anemia of chronic disease Prognosis Plan Patient was tentatively scheduled for a possible PEG tube on Saturday However patient was not cleared by anesthesia because of involving worsening stroke Awaiting neurology follow up Monitoring clinical status, supportive care Patient is currently on IV Clinimix I will follow On anticoagulation with Lovenox Dietary Evaluation Review Comments: Nutrition Recommendation: 1) PPN to supply 7094-1284 kcal & 49-61 gm protein per day 2) If PEG tube is placed: a. Continuous feeding - Jevity 1.2Cal @ 45ml/hr x 24hr. Water flush 110ml if allowed, adjust PRN Start @ 20ml/hr, increase 10ml/hr Q8H until goal is reached. b. Bolus feeding - Jevity 1.2Cal 270ml x 4. Water flush 110ml if allowed, adjust PRN Start @ 100ml, increase 100ml Q8H until goal is reached. TF @ goal volume provides 1296 kcal (100% energy needs), protein 60gm (100% protein needs), and 1312ml water (including flush) 3) Monitor NPO status, lab values, weight trend, and I/O Expected Outcomes/Goals: Intake to meet >75% estimated needs Lab values to improve Fu 2-3 days Body Fat Depletion (Severe): Mod to Severe Depletion Muscle Mass (Severe): Mod to Severe Depletion Protein Calorie Malnutrition: Severe Plan discussed with: Patient ISIDORO RIOS MD Aug 01, 2025 19:45
--- NOTE | 2025-08-01 21:14 | DVHPN2 ---
Progress Note - Dictate Date Seen: Aug 01, 2025 Medical Necessity Reason Pt with a Central, PICC or Fol: No The following are medically ne: Ogden Catheter Reason for ogden catheter: Strict I&O Subjective Ms. Calero is a 84 years old female with a history of pneumonia, he was brought to the [facility] from her group home on 07/28/2025 for feeding tube insertion. She was discharged from the [facility] on 07/22/2025 for right hip fracture and surgical repair. I saw her on 07/21/2025 for stroke (MR positive, she was found to have new onset AFib) I have seen examined the patient along with her nurse, the case was discussed with Dr. Swift She is awake, weak, responsive to verbal stimuli, he mumbles words No changes on physical examination Urinalysis, 07/29/2025: WBC: 9, urine leukocyte esterase: Negative WBC/HB/PLT/MCV, 07/29/2025: 15/9.1/448/96.2, 07/30/2025: 15/9.1/493/94.9 PT/INR/ABG, 07/28/2025: 10.9/1.03/33.7 Na, 07/28/2025: 152, 07/29/2025: 151, 07/30/25: 150, 08/01/2025: 142 Liver function tests, 07/29/2025: Unremarkable TG/HDL/LDL/HDL, 07/21/2025: 97/116/68/54 EKG, 07/20/2025: AFib Echocardiogram, 07/19/2025: imited difficult study lvef 75% hyperdynamic LV mild LVH noted normal rv function left atrium enlarged no significant aortic stenosis, HOWEVER THERE IS A LARGE INTRACAVITARY VS LVOT GRADIENT OF >130 MMHG, THIS CAN BE SEEN IN HOCM trace to mild mitral regurg L sided pleural effusion noted CT head 07/18/2025: No acute intracranial abnormality CT head, 07/21/2025: Small acute right parietal lobe infarct CT head, 07/28/25: 1. No acute intracranial hemorrhage. 2. Interval evolution of the previously described right MCA territorial infarct with increased involvement within the right parietal and temporal lobes. There is locoregional mass effect without midline shift. 3. Age-related involutional changes. Chronic microvascular changes. CT chest, 08/07/2025: Multifocal patchy left lung opacities, which could represent early pneumonia. Small left and trace right pleural effusions. CTA head, neck, 07/21/2025: Severe diffuse narrowing of the bilateral M1 segments of the middle cerebral artery and posterior cerebral arteries. Differential includes atherosclerosis and vasculitis. Recommend brain MRI with and without IV contrast to exclude basilar meningitis. Moderate and severe multifocal stenoses of the distal intracranial internal carotid artery secondary to atherosclerosis MRI head, 07/22/25: 1. Acute infarcts in the right parietal, right temporal and right occipital lobe. 2. No intracranial hemorrhage or mass effect. vital signs Vital Sign Date Time Temp Pulse Resp B/P (MAP) Pulse Ox O2 Delivery O2 Flow Rate FiO2 08/01/25 18:43 95 Room Air 08/01/25 18:43 88 16 08/01/25 18:43 0 21 21 08/01/25 16:52 98.5 128/87 (101) 98.5 Total Intake and Output 07/31/25 07/31/25 08/01/25 15:00 23:00 07:00 Intake Total 200 ml 200 ml Output Total 150 ml 300 ml Balance 50 ml -100 ml medications Current Medications Medications Dose Ordered Sig/Juan Route Start Time Stop Time Status Last Admin Dose Admin Nitroglycerin 0.4 mg Q5MINP PRN SL 07/28/25 23:30 Morphine Sulfate 2 mg Q30M PRN IV 07/28/25 23:30 Hydralazine HCl 10 mg Q4HP PRN IV 07/29/25 05:45 07/30/25 00:50 10 MG Piperacillin Sod/ Tazobactam Sod 100 ml @ 25 mls/hr Q8H IV 07/29/25 09:00 08/01/25 10:25 25 MLS/HR Vancomycin HCl 0 ml @ 0 mls/hr PER PHARMACY IV 07/29/25 08:00 Enoxaparin Sodium 90 mg Q12HR SC 07/29/25 10:00 Hold 08/01/25 10:26 90 MG Lorazepam 1 mg ONCE PRN IV 07/29/25 10:15 Amino Acids 0 ml @ 0 mls/hr PER PHARMACY IV 07/29/25 14:00 Diagnostic Test (Pha) 1 strip Q6HR 07/30/25 00:00 08/01/25 18:00 1 STRIP Insulin Human Regular FOLLOW SLIDING SCALE Q6HR SC 07/30/25 00:00 08/01/25 00:02 2 UNITS Dextrose 50 ml UD IV 07/29/25 22:00 Albuterol 2.5 mg Q4HWA NEB 07/29/25 22:00 08/01/25 18:43 2.5 MG Potassium Chloride 100 ml @ 50 mls/hr Q2H IV 07/30/25 12:45 07/30/25 16:44 Cancel Sodium Chloride 1,000 ml @ 75 mls/hr [id number] IV 07/30/25 13:45 08/01/25 05:45 75 MLS/HR Amino Acids/ Electrolytes/ Dextrose 1,000 ml @ 41 mls/hr DAILY@2200 IV 07/30/25 22:00 07/31/25 21:48 41 MLS/HR Vancomycin HCl 100 ml @ 200 mls/hr Q8H IV 08/01/25 13:00 Morphine Sulfate 2 mg Q4HPRN PRN IV 08/01/25 13:30 08/01/25 13:26 2 MG objective General: the patient is well developed and nourished. No acute distress. MENTAL STATUS: Left neglect Subjective SPEECH, LANGUAGE, HIGHER CORTICAL FUNCTION: Her voice clear, but she does not answer questions CRANIAL NERVES: Left homonymous hemianopsia. PERRL. EOMs full and conjugate. Facial sensation intact in all three divisions bilaterally. Mandibular strength intact. Facial muscles symmetrical and strength intact. SENSATION: Sensation to touch and pinprick is fine MOTOR: Normal tone in the upper and lower extremity. Normal muscle bulk. No fasciculations. No abnormal movements or posturing. She only move the right arm REFLEXES: Deep tendon reflexes are symmetrical. No pathological reflexes. CEREBELLAR/COORDINATION: Deferred GAIT/STATION: deferred. laboratory and microbiology Laboratory Tests 08/01/25 05:19 Test 08/01/25 05:19 Range/Units Serum Glucose 107 H 74-106 mg/dL Problem List Dysphagia Acute left-sided weakness Left-sided neglect Left homonymous hemianopsia Enlarged stroke per CT head Acute stroke earlier in 07/2025, likely secondary to atrial fibrillation AFib Hypernatremia Recent right hip fracture status post surgical repair Assessment/Plan Monitoring Supportive treatment Telemetry Lovenox for now, Eliquis on discharge IV antibiotics Amyloid acid/electrolytes/glucose IV More recommendation per clinical course She has left-sided stroke, left neglect, left homonymous hemianopsia, left hemiplegia, she has likely has a poor prognosis for good recovery and she is life is likely to be changed. I agree hospice care on her This medical document was created using an electronic medical record system with [employer] dictation system. Although this document has been carefully reviewed, there may still be some phonetic and typographical errors. These areas are purely typographical due to imperfections of the software programs, and do not reflect any compromise in the patient's medical care. Prognosis poor Dietary Evaluation Review Comments: Nutrition Recommendation: 1) PPN to supply 5774-6149 kcal & 49-61 gm protein per day 2) If PEG tube is placed: a. Continuous feeding - Jevity 1.2Cal @ 45ml/hr x 24hr. Water flush 110ml if allowed, adjust PRN Start @ 20ml/hr, increase 10ml/hr Q8H until goal is reached. b. Bolus feeding - Jevity 1.2Cal 270ml x 4. Water flush 110ml if allowed, adjust PRN Start @ 100ml, increase 100ml Q8H until goal is reached. TF @ goal volume provides 1296 kcal (100% energy needs), protein 60gm (100% protein needs), and 1312ml water (including flush) 3) Monitor NPO status, lab values, weight trend, and I/O Expected Outcomes/Goals: Intake to meet >75% estimated needs Lab values to improve Fu 2-3 days Body Fat Depletion (Severe): Mod to Severe Depletion Muscle Mass (Severe): Mod to Severe Depletion Protein Calorie Malnutrition: Severe Plan discussed with: Other VICK CHÁVEZ MD Aug 01, 2025 21:14
--- NOTE | 2025-08-01 23:28 | DVHINCON2 ---
Date of service: Jul 31, [address] Nayak Reason for Consultation Pneumonia History of Present Illness An 84-year-old woman with past medical history of pneumonia, CAD, hypertension, hyperlipidemia, CHF, CVA and dementia who had recent CVA and pneumonia, admitted here in [facility] and transferred to [facility] for rehabilitation. She was transferred back to the ER on 07/29/25 with request for gastric tube placement. The patient has not been able to have oral intake for the past 2 days. Patient was altered and could not provide any additional information. No family member was present in the ER at that time. Patient was admitted for further care. Pulmonary consultation is requested for evaluation and management of pneumonia. Review of Systems: 14-point review of systems negative unless otherwise noted above. Past Medical History: Pneumonia, CAD, CHF, hypertension, hyperlipidemia, CVA, dementia Past Surgical History: None Medications: Reviewed. Allergies: No known drug allergies. Family History: No family history of premature CAD. No family history of lung disorders. Social History: Nonsmoker. No alcohol or illicit drug use. Allergies: Coded Allergies: NO KNOWN ALLERGIES (Unverified , 04/16/25) Home Meds Active Scripts Apixaban Base (ELIQUIS) 5 Mg Tab, 2.5 MG PO BID for 30 Days, #30 TAB 2 Refills Prov:FLAKITO NAYAK MD 07/22/25 Atorvastatin Calcium (Lipitor) 20 Mg Tab, 1 TAB PO DAILY, #90 TAB 1 Refill Prov:FLAKITO NAYAK MD 07/22/25 Metoprolol Tartrate (Lopressor) 25 Mg Tb, 50 MG PO BID for 30 Days, #120 TAB 1 Refill Prov:FLAKITO NAYAK MD 07/22/25 Current Medications Current Medications Medications (Trade) Dose Ordered Sig/Juan Route PRN Reason Start Time Stop Time Status Last Admin Vancomycin HCl 100 ml @ 200 mls/hr Q8H IV 08/01/25 13:00 08/01/25 22:07 Morphine Sulfate 2 mg Q4HPRN PRN IV SEVERE PAIN (7-10 PAIN SCALE) 08/01/25 13:30 08/01/25 23:13 Vital Signs Vital Signs Date Time Temp Pulse Resp B/P (MAP) Pulse Ox O2 Delivery O2 Flow Rate FiO2 08/01/25 23:13 86 16 139/82 08/01/25 22:12 98 12/14/25 21:00 97.5 97.5 08/01/25 18:43 Room Air 08/01/25 18:43 0 21 21 Physical Exam Gen.: Patient lying in bed in no apparent distress. Breathing on room air. Head: Normocephalic, atraumatic. Eyes: EOMI/PERRLA. Ears: Normal hearing. Normal anatomy. Neck/trachea: Trachea midline, supple. Nose: Normal external anatomy. Mouth: Moist mucous membranes. Chest: Decreased air entry bilaterally. No wheezing or rhonchi. Cardiovascular: Positive S1, positive S2. Regular rate and rhythm. Abdomen: Positive bowel sounds in all 4 quadrants. Soft, non-tender, non- distended. : Deferred. Rectal: Deferred. Skin: Warm, dry. Intact. Extremities: 2+ radial pulses bilaterally. No lower extremity edema. Neuro: Awake, alert, oriented x3. No gross motor or sensory deficits. Cranial nerves II through XII intact. Gait not assessed. Labs/Diagnostic Data Labs Test 08/01/25 05:19 08/01/25 05:04 07/31/25 12:30 07/31/25 05:31 Range/Units White Blood Count 8.5 4.4-10.8 10^3/uL Red Blood Count 3.13 L 4.0-5.20 10^6/uL Hemoglobin 9.8 L 12.2-16.2 g/dL Hematocrit 29.6 L 36.0-46.0 % Mean Corpuscular Volume 94.4 80.0-100.0 fL Mean Corpuscular Hemoglobin 31.4 28.0-32.0 pg Mean Corpuscular Hemoglobin Concent 33.2 32.0-36.0 g/dL Red Cell Distribution Width 16.9 H 11.8-14.3 % Platelet Count 562 H 140-450 10^3/uL Mean Platelet Volume 7.4 6.9-10.8 fL Neutrophils (%) (Auto) 80.1 H 37.0-80.0 % Lymphocytes (%) (Auto) 4.9 L 10.0-50.0 % Monocytes (%) (Auto) 12.8 H 0.0-12.0 % Eosinophils (%) (Auto) 2.1 0.0-7.0 % Basophils (%) (Auto) 0.1 0.0-2.0 % Neutrophils # (Auto) 6.8 1.6-8.6 10 ^3/uL Lymphocytes # (Auto) 0.4 0.4-5.4 10 ^3/uL Monocytes # (Auto) 1.1 0-1.3 10 ^3/uL Eosinophils # (Auto) 0.2 0-0.8 10 ^3/uL Basophils # (Auto) 0 0-0.2 10 ^3/uL Nucleated Red Blood Cells 0.0 % Sodium Level 142 136-145 mmol/L Potassium Level 3.6 3.5-5.1 mmol/L Chloride Level 107 98-107 mmol/L Carbon Dioxide Level 26 20-31 mmol/L Anion Gap 9 5-15 Blood Urea Nitrogen 12 9-23 mg/dL Creatinine 0.42 L 0.550-1.02 mg/dL Glomerular Filtration Rate Calc 96 >90 mL/min BUN/Creatinine Ratio 28.6 H 10.0-20.0 Serum Glucose 107 H 74-106 mg/dL Calcium Level 8.0 L 8.7-10.4 mg/dL Phosphorus Level 2.7 2.4-5.1 mg/dL Magnesium Level 2.1 1.6-2.6 mg/dL Total Bilirubin 0.5 0.2-1.0 mg/dL Aspartate Amino Transferase (AST) 48 H 13-40 U/L Alanine Aminotransferase (ALT) 19 7-40 U/L Alkaline Phosphatase 58 46-116 U/L Total Protein 5.6 L 5.7-8.2 g/dL Albumin 2.6 L 3.2-4.8 g/dL POC Glucose 108 H 70-106 mg/dl Vancomycin Level Trough 11.6 H 5-10 ug/mL Iron Level 37 L 50-170 ug/dL Total Iron Binding Capacity 197 L 250-425 ug/dL Percent Iron Saturation 18.8 15-50 % Test 07/30/25 06:22 07/29/25 16:21 07/29/25 04:54 07/28/25 19:44 Range/Units Random Vancomycin Level 13.0 H 5-10 ug/mL Influenza Type A Antigen Negative Negative Influenza Type B Antigen Negative Negative SARS-CoV-2 Antigen (Rapid) Negative NEGATIVE Urine Color Yellow Yellow Urine Clarity Turbid H Clear Urine pH 5.5 5.0-9.0 Urine Specific [place] 1.025 1.001-1.035 Urine Protein 1+ H Negative Urine Ketones 1+ H Negative Urine Blood 3+ H Negative /uL Urine Nitrite Negative Negative Urine Bilirubin Negative Negative Urine Urobilinogen Normal Negative mg/dL Urine Leukocyte Esterase Negative Negative /uL Urine RBC 181 0 - 4 /hpf Urine Microscopic WBC 9 H 0-5 /HPF Urine Squamous Epithelial Cells None seen <5 /hpf Urine Bacteria None seen None Seen /hpf Urine Hyaline Casts Few 0 - 2 /lpf Urine Mucus Few None Seen Urine Glucose Normal Normal mg/dL Prothrombin Time 10.9 9.3-11.8 sec Prothrombin Time INR 1.03 0.9-1.15 Activated Partial Thromboplast Time 33.7 24.5-34.5 SEC Microbiology Date/Time Source Procedure Growth Status 07/30/25 03:30 Nose MRSA Screen - Final Complete Assessment Impression: Multifocal pneumonia. Multiple cerebral infarcts. Paroxysmal atrial fibrillation Dysphagia Anemia Severe protein-calorie malnutrition Plan: Supplemental oxygen PRN Titrate to keep O2 sats above 92%. CT chest with some residual left sided pleural effusion and multifocal patchy opacities in the left lung base resembling early pneumonia. MRI brain showing significant increase in size of right cerebral infarcts and new infarcts in the left temporal and occipital lobes. Follow up Neurology recommendations Head of bed elevation Aspiration precautions Bronchodilators - Ventolin HFA Continue antibiotics WBC trending down IV fluids with NS Accu-Cheks, ISS PRN. Clinimix for nutritional support GI considering PEG tube placement Follow up GI recommendations Monitor hemoglobin - currently stable. Transfuse if less than 7.0 g/dL. Monitor renal function. Monitor electrolytes. Supplement as necessary. Monitor ins and outs. Recommend Hospice evaluation DVT prophylaxis. Prognosis: Poor given patient's multiple co-morbidities. Rest of plan per hospitalist and other consultants. Thank you, Dr. Nayak, for allowing me to participate in this patient's care. Further recommendations will depend on the patient's clinical course. Please do not hesitate to contact me if you have any questions or concerns. This medical document was created using an electronic medical record system with [employer] system. Although these documentations are being carefully reviewed, there may still be some phonetic and typographical changes. The errors are purely typographical, due to imperfection on the software program, and do not reflect any compromise in the patient's medical care. Plan discussed with: Other (RN/MD) CL[facility]DANA [facility] Aug 01, 2025 23:28
--- NOTE | 2025-08-01 23:30 | DVHPN2 ---
Progress Note - Dictate Date Seen: Aug 01, 2025 Medical Necessity Reason Pt with a Central, PICC or Fol: No The following are medically ne: Ogden Catheter Reason for ogden catheter: Strict I&O Subjective Patient seen and examined at bedside. Currently on supplemental oxygen Overnight events reviewed. vital signs Vital Sign Date Time Temp Pulse Resp B/P (MAP) Pulse Ox O2 Delivery O2 Flow Rate FiO2 08/01/25 23:13 86 16 139/82 08/01/25 22:12 98 08/01/25 21:00 97.5 97.5 08/01/25 18:43 Room Air 08/01/25 18:43 0 21 21 Total Intake and Output 07/31/25 07/31/25 08/01/25 15:00 23:00 07:00 Intake Total 200 ml 200 ml Output Total 150 ml 300 ml Balance 50 ml -100 ml medications Current Medications Medications Dose Ordered Sig/Juan Route Start Time Stop Time Status Last Admin Dose Admin Nitroglycerin 0.4 mg Q5MINP PRN SL 07/28/25 23:30 Morphine Sulfate 2 mg Q30M PRN IV 07/28/25 23:30 Hydralazine HCl 10 mg Q4HP PRN IV 07/29/25 05:45 07/30/25 00:50 Piperacillin Sod/ Tazobactam Sod 100 ml @ 25 mls/hr Q8H IV 07/29/25 09:00 08/01/25 10:25 Vancomycin HCl 0 ml @ 0 mls/hr PER PHARMACY IV 07/29/25 08:00 Enoxaparin Sodium 90 mg Q12HR SC 07/29/25 10:00 Hold 08/01/25 10:26 Lorazepam 1 mg ONCE PRN IV 07/29/25 10:15 Amino Acids 0 ml @ 0 mls/hr PER PHARMACY IV 07/29/25 14:00 Diagnostic Test (Pha) 1 strip Q6HR 07/30/25 00:00 08/01/25 18:00 Insulin Human Regular FOLLOW SLIDING SCALE Q6HR SC 07/30/25 00:00 08/01/25 00:02 Dextrose 50 ml UD IV 07/29/25 22:00 Albuterol 2.5 mg Q4HWA NEB 07/29/25 22:00 08/01/25 22:12 Potassium Chloride 100 ml @ 50 mls/hr Q2H IV 07/30/25 12:45 07/30/25 16:44 Cancel Sodium Chloride 1,000 ml @ 75 mls/hr [id number] IV 07/30/25 13:45 08/01/25 22:08 Amino Acids/ Electrolytes/ Dextrose 1,000 ml @ 41 mls/hr DAILY@2200 IV 07/30/25 22:00 08/01/25 22:08 Vancomycin HCl 100 ml @ 200 mls/hr Q8H IV 08/01/25 13:00 08/01/25 22:07 Morphine Sulfate 2 mg Q4HPRN PRN IV 08/01/25 13:30 08/01/25 23:13 objective Gen.: Patient lying in bed in no apparent distress. On supplemental oxygen. Head: Normocephalic, atraumatic. Eyes: EOMI/PERRLA. Ears: Normal hearing. Normal anatomy. Neck/trachea: Trachea midline, supple. Nose: Normal external anatomy. Mouth: Moist mucous membranes. Chest: Decreased air entry bilaterally. No wheezing or rhonchi. Minimal rales, bilateral posterior bases. Cardiovascular: Positive S1, positive S2. Regular rate and rhythm. Abdomen: Positive bowel sounds in all 4 quadrants. Soft, non-tender, non- distended. : Deferred. Rectal: Deferred. Skin: Warm, dry. Intact. Extremities: 2+ radial pulses bilaterally. No lower extremity edema. Neuro: Awake, alert, oriented x3. No gross motor or sensory deficits. Cranial nerves II through XII intact. Gait not assessed. Patient is able to lift her right arm and right leg. laboratory and microbiology Laboratory Tests 08/01/25 05:19 Test 08/01/25 05:19 Range/Units Serum Glucose 107 H 74-106 mg/dL Assessment/Plan Impression: Multifocal pneumonia. Multiple cerebral infarcts. Paroxysmal atrial fibrillation Dysphagia Anemia Severe protein-calorie malnutrition Events: Currently on supplemental oxygen, 2 LPM NC Taper O2 as tolerated Continue bronchodilators - Ventolin HFA Continue antibiotics Pain control Avoid oversedation Clinimix for nutritional support Poor prognosis Plan for hospice evaluation Goals of care discussed with family Family agreed for comfort care. Continue supportive care Labs and imaging reviewed. Plan: Supplemental oxygen PRN Titrate to keep O2 sats above 92%. CT chest with some residual left sided pleural effusion and multifocal patchy opacities in the left lung base resembling early pneumonia. MRI brain showing significant increase in size of right cerebral infarcts and new infarcts in the left temporal and occipital lobes. Follow up Neurology recommendations Head of bed elevation Aspiration precautions Bronchodilators - Ventolin HFA Continue antibiotics WBC trending down IV fluids with NS Accu-Cheks, ISS PRN. Clinimix for nutritional support GI considering PEG tube placement Follow up GI recommendations Monitor hemoglobin - currently stable. Transfuse if less than 7.0 g/dL. Monitor renal function. Monitor electrolytes. Supplement as necessary. Monitor ins and outs. Recommend Hospice evaluation DVT prophylaxis. Prognosis: Poor given patient's multiple co-morbidities. Rest of plan per hospitalist and other consultants. Thank you, Dr. Nayak, for allowing me to participate in this patient's care. Further recommendations will depend on the patient's clinical course. Please do not hesitate to contact me if you have any questions or concerns. This medical document was created using an electronic medical record system with [employer] dictation system. Although these documentations are being carefully reviewed, there may still be some phonetic and typographical changes. The errors are purely typographical, due to imperfection on the software program, and do not reflect any compromise in the patient's medical care. Dietary Evaluation Review Comments: Nutrition Recommendation: 1) PPN to supply 4547-8805 kcal & 49-61 gm protein per day 2) If PEG tube is placed: a. Continuous feeding - Jevity 1.2Cal @ 45ml/hr x 24hr. Water flush 110ml if allowed, adjust PRN Start @ 20ml/hr, increase 10ml/hr Q8H until goal is reached. b. Bolus feeding - Jevity 1.2Cal 270ml x 4. Water flush 110ml if allowed, adjust PRN Start @ 100ml, increase 100ml Q8H until goal is reached. TF @ goal volume provides 1296 kcal (100% energy needs), protein 60gm (100% protein needs), and 1312ml water (including flush) 3) Monitor NPO status, lab values, weight trend, and I/O Expected Outcomes/Goals: Intake to meet >75% estimated needs Lab values to improve Fu 2-3 days Body Fat Depletion (Severe): Mod to Severe Depletion Muscle Mass (Severe): Mod to Severe Depletion Protein Calorie Malnutrition: Severe Plan discussed with: Other (LATASHA Salamanca/SERGIO) CLARA ALDANA [facility] Aug 01, 2025 23:30
[2025-08-02] VITALS (18 sets, daily range): BP systolic 104–156; BP diastolic 51–70; PULSE 65–116; RESP 16–18; TEMP 97.3–99; O2SAT 82–100
--- NOTE | 2025-08-02 08:58 | DVHPN2 ---
Progress Note Date Seen: Aug 02, 2025 Has the PT tested + for MRSA If YES, has PT been informed?: Yes Medical Necessity Reason Pt with a Central, PICC or Fol: No The following are medically ne: Ogden Catheter Reason for ogden catheter: Strict I&O Subjective Patient reports: No new complaints Review of Systems: RESPIRATORY:Abnormal Objective vital signs Vital Sign Date Time Temp Pulse Resp B/P (MAP) Pulse Ox O2 Delivery O2 Flow Rate FiO2 08/02/25 07:09 83 16 100 08/02/25 07:03 Room Air 0.0 08/02/25 07:03 21 08/02/25 05:00 97.5 106/70 (82) 97.5 Total Intake and Output 08/01/25 08/01/25 08/02/25 15:00 23:00 07:00 Intake Total 1100 ml 200 ml Output Total 250 ml 200 ml Balance 850 ml 0 ml medications Current Medications Medications Dose Ordered Sig/Juan Route Start Time Stop Time Status Last Admin Dose Admin Nitroglycerin 0.4 mg Q5MINP PRN SL 07/28/25 23:30 Morphine Sulfate 2 mg Q30M PRN IV 07/28/25 23:30 Hydralazine HCl 10 mg Q4HP PRN IV 07/29/25 05:45 07/30/25 00:50 10 MG Piperacillin Sod/ Tazobactam Sod 100 ml @ 25 mls/hr Q8H IV 07/29/25 09:00 08/02/25 00:28 25 MLS/HR Vancomycin HCl 0 ml @ 0 mls/hr PER PHARMACY IV 07/29/25 08:00 Enoxaparin Sodium 90 mg Q12HR SC 07/29/25 10:00 Hold 08/01/25 10:26 90 MG Lorazepam 1 mg ONCE PRN IV 07/29/25 10:15 Amino Acids 0 ml @ 0 mls/hr PER PHARMACY IV 07/29/25 14:00 Diagnostic Test (Pha) 1 strip Q6HR 07/30/25 00:00 08/02/25 05:17 1 STRIP Insulin Human Regular FOLLOW SLIDING SCALE Q6HR SC 07/30/25 00:00 08/01/25 00:02 2 UNITS Dextrose 50 ml UD IV 07/29/25 22:00 Albuterol 2.5 mg Q4HWA NEB 07/29/25 22:00 08/02/25 07:03 2.5 MG Potassium Chloride 100 ml @ 50 mls/hr Q2H IV 07/30/25 12:45 07/30/25 16:44 Cancel Sodium Chloride 1,000 ml @ 75 mls/hr [id number] IV 07/30/25 13:45 08/01/25 22:08 75 MLS/HR Amino Acids/ Electrolytes/ Dextrose 1,000 ml @ 41 mls/hr DAILY@2200 IV 07/30/25 22:00 08/01/25 22:08 41 MLS/HR Vancomycin HCl 100 ml @ 200 mls/hr Q8H IV 08/01/25 13:00 08/02/25 05:17 200 MLS/HR Morphine Sulfate 2 mg Q4HPRN PRN IV 08/01/25 13:30 08/01/25 23:13 2 MG Examination: LUNGS:Abnormal laboratory and microbiology Test 08/02/25 05:19 Range/Units Serum Glucose Pending Microbiology Date/Time Source Procedure Growth Status 07/30/25 03:30 Nose MRSA Screen - Final Complete Labs and/or images reviewed: Labs reviewed by me, Image(s) reviewed by me Problem List/Assessment/Plan Problem List/Assessment/Plan imp multi focal pneum,onia morte on lt side . pl,eural effusion is decreased on last c t plan cxr in a m and continuepulm toilet pt is on r air now Plan discussed with: Patient Dietary Evaluation Review Recommendations by RD: Dietary education by RD Comments: Nutrition Recommendation: 1) PPN to supply 3595-9242 kcal & 49-61 gm protein per day 2) If PEG tube is placed: a. Continuous feeding - Jevity 1.2Cal @ 45ml/hr x 24hr. Water flush 110ml if allowed, adjust PRN Start @ 20ml/hr, increase 10ml/hr Q8H until goal is reached. b. Bolus feeding - Jevity 1.2Cal 270ml x 4. Water flush 110ml if allowed, adjust PRN Start @ 100ml, increase 100ml Q8H until goal is reached. TF @ goal volume provides 1296 kcal (100% energy needs), protein 60gm (100% protein needs), and 1312ml water (including flush) 3) Monitor NPO status, lab values, weight trend, and I/O Expected Outcomes/Goals: Intake to meet >75% estimated needs Lab values to improve Fu 2-3 days Body Fat Depletion (Severe): Mod to Severe Depletion Muscle Mass (Severe): Mod to Severe Depletion Protein Calorie Malnutrition: Severe Sepsis reassessment post fluid Respiratory Effort: Short of Breath Heart Sounds: S1 & S2 Breath sounds: Crackles, Diminished ANNI BAL MD Aug 02, 2025 08:58
[2025-08-02 09:32] LABS: Hematocrit 25.2 % (36.0-46.0); Hemoglobin 8.4 g/dL (12.2-16.2); Mean Corpuscular Hemoglobin 31.5 pg (28.0-32.0)
[2025-08-02 09:34] LABS: Mean Corpuscular Volume 94.4 fL (80.0-100.0); Nucleated Red Blood Cells % 0.1 %
[2025-08-02 10:56] LABS: Anion Gap 8 (5-15)
[2025-08-02 11:02] LABS: BUN/Creatinine Ratio 38.1 (10.0-20.0)
[2025-08-02 11:13] LABS: Blood Urea Nitrogen 16 mg/dL (9-23); Carbon Dioxide 23 mmol/L (20-31); Chloride 109 mmol/L (98-107); Glucose 148 mg/dL (74-106); Potassium 3.4 mmol/L (3.5-5.1); Sodium 140 mmol/L (136-145)
[2025-08-02 11:14] LABS: Alanine Aminotransferase 21 U/L (7-40); Albumin 2.0 g/dL (3.2-4.8); Alkaline Phosphatase 60 U/L (46-116); Bilirubin, Total 0.6 mg/dL (0.2-1.0); Calcium 6.9 mg/dL (8.7-10.4); Magnesium 1.6 mg/dL (1.6-2.6); Total Protein 4.4 g/dL (5.7-8.2); Triglycerides 93 mg/dL (< 150)
--- NOTE | 2025-08-02 13:17 | DVHPN2 ---
Progress Note - Dictate Date Seen: Aug 02, 2025 Has the PT tested + for MRSA If YES, has PT been informed?: Yes Medical Necessity Reason Pt with a Central, PICC or Fol: No The following are medically ne: Ogedn Catheter Reason for ogden catheter: Strict I&O Subjective Patient had no acute events overnight. Patient family have decided to sign on hospice but are working on placement verses hospice at home. vital signs Vital Sign Date Time Temp Pulse Resp B/P (MAP) Pulse Ox O2 Delivery O2 Flow Rate FiO2 08/02/25 10:26 82 16 100 08/02/25 10:20 Room Air* 0 21 21 08/02/25 09:00 98.9 156/54 (88) 98.9 Total Intake and Output 08/01/25 08/01/25 08/02/25 15:00 23:00 07:00 Intake Total 1100 ml 200 ml Output Total 250 ml 200 ml Balance 850 ml 0 ml medications Current Medications Medications Dose Ordered Sig/Juan Route Start Time Stop Time Status Last Admin Dose Admin Nitroglycerin 0.4 mg Q5MINP PRN SL 07/28/25 23:30 Morphine Sulfate 2 mg Q30M PRN IV 07/28/25 23:30 Hydralazine HCl 10 mg Q4HP PRN IV 07/29/25 05:45 07/30/25 00:50 10 MG Piperacillin Sod/ Tazobactam Sod 100 ml @ 25 mls/hr Q8H IV 07/29/25 09:00 08/02/25 12:00 25 MLS/HR Vancomycin HCl 0 ml @ 0 mls/hr PER PHARMACY IV 07/29/25 08:00 Enoxaparin Sodium 90 mg Q12HR SC 07/29/25 10:00 Hold 08/01/25 10:26 90 MG Lorazepam 1 mg ONCE PRN IV 07/29/25 10:15 Amino Acids 0 ml @ 0 mls/hr PER PHARMACY IV 07/29/25 14:00 Diagnostic Test (Pha) 1 strip Q6HR 07/30/25 00:00 08/02/25 05:17 1 STRIP Insulin Human Regular FOLLOW SLIDING SCALE Q6HR SC 07/30/25 00:00 08/01/25 00:02 2 UNITS Dextrose 50 ml UD IV 07/29/25 22:00 Albuterol 2.5 mg Q4HWA NEB 07/29/25 22:00 08/02/25 10:20 2.5 MG Potassium Chloride 100 ml @ 50 mls/hr Q2H IV 07/30/25 12:45 07/30/25 16:44 Cancel Sodium Chloride 1,000 ml @ 75 mls/hr [id number] IV 07/30/25 13:45 08/01/25 22:08 75 MLS/HR Amino Acids/ Electrolytes/ Dextrose 1,000 ml @ 41 mls/hr DAILY@2200 IV 07/30/25 22:00 08/01/25 22:08 41 MLS/HR Morphine Sulfate 2 mg Q4HPRN PRN IV 08/01/25 13:30 08/01/25 23:13 2 MG objective GEN: A&Ox2, NAD, HEENT: NC/AT, EOMI, PERRL CV: S1S2+, RRR Lungs: minimal bilateral posterior base rales, no wheezing or rhonchi Abd: Soft, NT, ND, + BS LE; Edema in both legs and arms laboratory and microbiology Laboratory Tests 08/02/25 08:58 Test 08/02/25 08:58 Range/Units Serum Glucose 148 H 74-106 mg/dL Problem List Primary Diagnosis: Multifocal CVA Altered Mental Status likely secondary to CVA Multifocal Pneumonia Dysphagia Acute Hypernatremia - resolved Dehydration- resolved Hypokalemia - resolved Hypophosphatemia - resolved Secondary Diagnosis: Paroxysmal Atrial Fibrillation Left Sided Neglect Assessment/Plan - continue telemetry monitoring - heel caser consulted as family requesting patient to be placed on Hospice and do not want to have PEG tube placement and artificial nutrition. - Hydralazine 10mg IV PRN Q 6 hours for SBP > 150mmHg or DBP > 90mmHg, multiple embolic strokes from history of underline atrial fibrillation, Lovenox 1mg/Kg SQ BID, appreciate neurology recommendations - IV abx with Zosyn Day 5/7, discontinue Vancomycin Day 5, multifocal pneumonia - NPO, Clinimix for artificial Nutrition - Discontinue Isotonic fluids with 0.9NS due edema developing in both arms and legs. - continue aspiration and pressure ulcer precautions. - Am labs DVT Prophy; Lovenox 1mg/Kg SQ BID Code Status: DNR Dispo: Family decided to change patient code status to DNR and have agreed to hospice. Patient family is working with case management to figure out placement vs hospice at home. Dietary Evaluation Review Recommendations by RD: Dietary education by RD Comments: Nutrition Recommendation: 1) PPN to supply [id number] kcal & 49-61 gm protein per day 2) If PEG tube is placed: a. Continuous feeding - Jevity 1.2Cal @ 45ml/hr x 24hr. Water flush 110ml if allowed, adjust PRN Start @ 20ml/hr, increase 10ml/hr Q8H until goal is reached. b. Bolus feeding - Jevity 1.2Cal 270ml x 4. Water flush 110ml if allowed, adjust PRN Start @ 100ml, increase 100ml Q8H until goal is reached. TF @ goal volume provides 1296 kcal (100% energy needs), protein 60gm (100% protein needs), and 1312ml water (including flush) 3) Monitor NPO status, lab values, weight trend, and I/O Expected Outcomes/Goals: Intake to meet >75% estimated needs Lab values to improve Fu 2-3 days Body Fat Depletion (Severe): Mod to Severe Depletion Muscle Mass (Severe): Mod to Severe Depletion Protein Calorie Malnutrition: Severe Plan discussed with: Other (Niece) Respiratory Effort: Short of Breath Heart Sounds: S1 & S2 Breath sounds: Crackles, Diminished ZAINAERIAChaz-RADHA REYES MD Aug 02, 2025 13:17
[2025-08-02] MEDS: POTASSIUM PHOSPHATE 44 MEQ in D5W 5% 250 ML IV ONE (21:45)
--- NOTE | 2025-08-02 22:40 | DVHPN2 ---
Progress Note - Dictate Date Seen: Aug 02, 2025 Has the PT tested + for MRSA If YES, has PT been informed?: Yes Medical Necessity Reason Pt with a Central, PICC or Fol: No The following are medically ne: Ogden Catheter Reason for ogden catheter: Strict I&O Subjective Ms. Calero is a 84 years old female with a history of pneumonia, he was brought to the [facility] from her group home on 07/28/2025 for feeding tube insertion. She was discharged from the [facility] on 07/22/2025 for right hip fracture and surgical repair. I saw her on 07/21/2025 for stroke (MR positive, she was found to have new onset AFib) I have seen examined the patient along with her nurse, per my observation, the patient's looks weaker, voice more slurry today, only oriented to himself Nurse did not agree, reports the patient looks better, stroke and talked to more Otherwise no change on physical examination Urinalysis, 07/29/2025: WBC: 9, urine leukocyte esterase: Negative WBC/HB/PLT/MCV, 07/29/2025: 15/9.1/448/96.2, 07/30/2025: 15/9.1/493/94.9 PT/INR/ABG, 07/28/2025: 10.9/1.03/33.7 Na, 07/28/2025: 152, 07/29/2025: 151, 07/30/25: 150, 08/01/2025: 142 Liver function tests, 07/29/2025: Unremarkable TG/HDL/LDL/HDL, 07/21/2025: 97/116/68/54 EKG, 07/20/2025: AFib Echocardiogram, 07/19/2025: imited difficult study lvef 75% hyperdynamic LV mild LVH noted normal rv function left atrium enlarged no significant aortic stenosis, HOWEVER THERE IS A LARGE INTRACAVITARY VS LVOT GRADIENT OF >130 MMHG, THIS CAN BE SEEN IN HOCM trace to mild mitral regurg L sided pleural effusion noted CT head 07/18/2025: No acute intracranial abnormality CT head, 07/21/2025: Small acute right parietal lobe infarct CT head, 07/28/25: 1. No acute intracranial hemorrhage. 2. Interval evolution of the previously described right MCA territorial infarct with increased involvement within the right parietal and temporal lobes. There is locoregional mass effect without midline shift. 3. Age-related involutional changes. Chronic microvascular changes. CT chest, 08/07/2025: Multifocal patchy left lung opacities, which could represent early pneumonia. Small left and trace right pleural effusions. CTA head, neck, 07/21/2025: Severe diffuse narrowing of the bilateral M1 segments of the middle cerebral artery and posterior cerebral arteries. Differential includes atherosclerosis and vasculitis. Recommend brain MRI with and without IV contrast to exclude basilar meningitis. Moderate and severe multifocal stenoses of the distal intracranial internal carotid artery secondary to atherosclerosis MRI head, 07/22/25: 1. Acute infarcts in the right parietal, right temporal and right occipital lobe. 2. No intracranial hemorrhage or mass effect. vital signs Vital Sign Date Time Temp Pulse Resp B/P (MAP) Pulse Ox O2 Delivery O2 Flow Rate FiO2 08/02/25 22:16 65 18 100 08/02/25 22:10 Room Air 08/02/25 22:10 0 21 08/02/25 17:00 99.0 117/62 (80) 99.0 Total Intake and Output 08/01/25 08/01/25 08/02/25 15:00 23:00 07:00 Intake Total 1100 ml 200 ml Output Total 250 ml 200 ml Balance 850 ml 0 ml medications Current Medications Medications Dose Ordered Sig/Juan Route Start Time Stop Time Status Last Admin Dose Admin Nitroglycerin 0.4 mg Q5MINP PRN SL 07/28/25 23:30 Morphine Sulfate 2 mg Q30M PRN IV 07/28/25 23:30 Hydralazine HCl 10 mg Q4HP PRN IV 07/29/25 05:45 07/30/25 00:50 10 MG Piperacillin Sod/ Tazobactam Sod 100 ml @ 25 mls/hr Q8H IV 07/29/25 09:00 08/02/25 18:37 25 MLS/HR Enoxaparin Sodium 90 mg Q12HR SC 07/29/25 10:00 Hold 08/01/25 10:26 90 MG Lorazepam 1 mg ONCE PRN IV 07/29/25 10:15 Amino Acids 0 ml @ 0 mls/hr PER PHARMACY IV 07/29/25 14:00 Diagnostic Test (Pha) 1 strip Q6HR 07/30/25 00:00 08/02/25 18:00 1 STRIP Insulin Human Regular FOLLOW SLIDING SCALE Q6HR SC 07/30/25 00:00 08/01/25 00:02 2 UNITS Dextrose 50 ml UD IV 07/29/25 22:00 Albuterol 2.5 mg Q4HWA NEB 07/29/25 22:00 08/02/25 22:10 2.5 MG Potassium Chloride 100 ml @ 50 mls/hr Q2H IV 07/30/25 12:45 07/30/25 16:44 Cancel Amino Acids/ Electrolytes/ Dextrose 1,000 ml @ 41 mls/hr DAILY@2200 IV 07/30/25 22:00 08/02/25 21:45 41 MLS/HR Morphine Sulfate 2 mg Q4HPRN PRN IV 08/01/25 13:30 08/01/25 23:13 2 MG objective General: the patient is well developed and nourished. No acute distress. MENTAL STATUS: Left neglect Subjective SPEECH, LANGUAGE, HIGHER CORTICAL FUNCTION: Her voice clear, but she does not answer questions CRANIAL NERVES: Left homonymous hemianopsia. PERRL. EOMs full and conjugate. Facial sensation intact in all three divisions bilaterally. Mandibular strength intact. Facial muscles symmetrical and strength intact. SENSATION: Sensation to touch and pinprick is fine MOTOR: Normal tone in the upper and lower extremity. Normal muscle bulk. No fasciculations. No abnormal movements or posturing. She only move the right arm REFLEXES: Deep tendon reflexes are symmetrical. No pathological reflexes. CEREBELLAR/COORDINATION: Deferred GAIT/STATION: deferred. laboratory and microbiology Laboratory Tests 08/02/25 08:58 Test 08/02/25 08:58 Range/Units Serum Glucose 148 H 74-106 mg/dL Problem List Dysphagia Acute left-sided weakness Left-sided neglect Left homonymous hemianopsia Enlarged stroke per CT head Acute stroke earlier in 07/2025, likely secondary to atrial fibrillation AFib Hypernatremia Recent right hip fracture status post surgical repair Assessment/Plan Monitoring Supportive treatment Telemetry Lovenox for now, Eliquis on discharge IV antibiotics Amyloid acid/electrolytes/glucose IV More recommendation per clinical course She has left-sided stroke, left neglect, left homonymous hemianopsia, left hemiplegia, she has likely has a poor prognosis for good recovery and she is life is likely to be changed. I agree hospice care on her This medical document was created using an electronic medical record system with [employer] dictation system. Although this document has been carefully reviewed, there may still be some phonetic and typographical errors. These areas are purely typographical due to imperfections of the software programs, and do not reflect any compromise in the patient's medical care. Dietary Evaluation Review Recommendations by RD: Dietary education by RD Comments: Nutrition Recommendation: 1) PPN to supply 6723-6245 kcal & 49-61 gm protein per day 2) If PEG tube is placed: a. Continuous feeding - Jevity 1.2Cal @ 45ml/hr x 24hr. Water flush 110ml if allowed, adjust PRN Start @ 20ml/hr, increase 10ml/hr Q8H until goal is reached. b. Bolus feeding - Jevity 1.2Cal 270ml x 4. Water flush 110ml if allowed, adjust PRN Start @ 100ml, increase 100ml Q8H until goal is reached. TF @ goal volume provides 1296 kcal (100% energy needs), protein 60gm (100% protein needs), and 1312ml water (including flush) 3) Monitor NPO status, lab values, weight trend, and I/O Expected Outcomes/Goals: Intake to meet >75% estimated needs Lab values to improve Fu 2-3 days Body Fat Depletion (Severe): Mod to Severe Depletion Muscle Mass (Severe): Mod to Severe Depletion Protein Calorie Malnutrition: Severe Respiratory Effort: Short of Breath Heart Sounds: S1 & S2 Breath sounds: Crackles, Diminished VICK CHÁVEZ MD Aug 02, 2025 22:40
[2025-08-03] VITALS (15 sets, daily range): BP systolic 107–149; BP diastolic 52–85; PULSE 66–83; RESP 15–20; TEMP 36.5; O2SAT 94–100
--- NOTE | 2025-08-03 00:35 | DVHPN2 ---
Progress Note - Dictate Date Seen: Aug 02, 2025 Has the PT tested + for MRSA If YES, has PT been informed?: Yes Medical Necessity Reason Pt with a Central, PICC or Fol: No The following are medically ne: Ogden Catheter Reason for ogden catheter: Strict I&O Subjective Patient was seen and evaluated in follow up. No overnight events. Patients family have decided to sign on hospice but are working on placement verses hospice at home. HGB 8.4, HCT 25.2, K 3.4. Telemetry reviewed. vital signs Vital Sign Date Time Temp Pulse Resp B/P (MAP) Pulse Ox O2 Delivery O2 Flow Rate FiO2 08/02/25 22:16 65 18 100 08/02/25 22:10 Room Air 08/02/25 22:10 0 21 08/02/25 21:00 97.3 104/61 (75) 97.3 Total Intake and Output 08/02/25 08/02/25 08/03/25 15:00 23:00 07:00 Intake Total 0 ml Output Total 650 ml Balance -650 ml medications Current Medications Medications Dose Ordered Sig/Juan Route Start Time Stop Time Status Last Admin Dose Admin Nitroglycerin 0.4 mg Q5MINP PRN SL 07/28/25 23:30 Morphine Sulfate 2 mg Q30M PRN IV 07/28/25 23:30 Hydralazine HCl 10 mg Q4HP PRN IV 07/29/25 05:45 07/30/25 00:50 10 MG Piperacillin Sod/ Tazobactam Sod 100 ml @ 25 mls/hr Q8H IV 07/29/25 09:00 08/02/25 18:37 25 MLS/HR Enoxaparin Sodium 90 mg Q12HR SC 07/29/25 10:00 Hold 08/01/25 10:26 90 MG Lorazepam 1 mg ONCE PRN IV 07/29/25 10:15 Amino Acids 0 ml @ 0 mls/hr PER PHARMACY IV 07/29/25 14:00 Diagnostic Test (Pha) 1 strip Q6HR 07/30/25 00:00 08/02/25 18:00 1 STRIP Insulin Human Regular FOLLOW SLIDING SCALE Q6HR SC 07/30/25 00:00 08/01/25 00:02 2 UNITS Dextrose 50 ml UD IV 07/29/25 22:00 Albuterol 2.5 mg Q4HWA NEB 07/29/25 22:00 08/02/25 22:10 2.5 MG Potassium Chloride 100 ml @ 50 mls/hr Q2H IV 07/30/25 12:45 07/30/25 16:44 Cancel Amino Acids/ Electrolytes/ Dextrose 1,000 ml @ 41 mls/hr DAILY@2200 IV 07/30/25 22:00 08/02/25 21:45 41 MLS/HR Morphine Sulfate 2 mg Q4HPRN PRN IV 08/01/25 13:30 08/01/25 23:13 2 MG objective GENERAL: Altered, elderly, frail appearing EYES: PERRL, EOMI. Anicteric. HENT: Moist mucous membranes. LUNGS: Clear to auscultation bilaterally. CARDIOVASCULAR: Regular rate and rhythm. ABDOMEN: Soft, nontender and nondistended. EXTREMITIES: No edema. SKIN: Warm, dry. laboratory and microbiology Laboratory Tests 08/02/25 08:58 Test 08/02/25 08:58 Range/Units Serum Glucose 148 H 74-106 mg/dL Problem List Multifocal CVA. Altered mental status. Dysphagia. Hypernatremia. Dehydration. Left lower lobe opacity. Paroxysmal atrial fibrillation. Assessment/Plan Continued all current supportive medical care. DVT prophylactics. IV Hydralazine for SBP >160. Morphine for pain management. Nitro SL. IV antibiotics as ordered. Additional plan as per the hospital course. Dietary Evaluation Review Recommendations by RD: Dietary education by RD Comments: Nutrition Recommendation: 1) PPN to supply 0572-6075 kcal & 49-61 gm protein per day 2) If PEG tube is placed: a. Continuous feeding - Jevity 1.2Cal @ 45ml/hr x 24hr. Water flush 110ml if allowed, adjust PRN Start @ 20ml/hr, increase 10ml/hr Q8H until goal is reached. b. Bolus feeding - Jevity 1.2Cal 270ml x 4. Water flush 110ml if allowed, adjust PRN Start @ 100ml, increase 100ml Q8H until goal is reached. TF @ goal volume provides 1296 kcal (100% energy needs), protein 60gm (100% protein needs), and 1312ml water (including flush) 3) Monitor NPO status, lab values, weight trend, and I/O Expected Outcomes/Goals: Intake to meet >75% estimated needs Lab values to improve Fu 2-3 days Body Fat Depletion (Severe): Mod to Severe Depletion Muscle Mass (Severe): Mod to Severe Depletion Protein Calorie Malnutrition: Severe Plan discussed with: Patient Respiratory Effort: Short of Breath Heart Sounds: S1 & S2 Breath sounds: Crackles, Diminished KHADAR MAY MD Aug 03, 2025 00:35
[2025-08-03 06:07] LABS: Hemoglobin 9.2 g/dL (12.2-16.2)
[2025-08-03 06:09] LABS: Hematocrit 27.3 % (36.0-46.0); Mean Corpuscular Hemoglobin 31.9 pg (28.0-32.0); Mean Corpuscular Volume 94.6 fL (80.0-100.0); Nucleated Red Blood Cells % 0.1 %
[2025-08-03 06:11] LABS: Alanine Aminotransferase 25 U/L (7-40); Alkaline Phosphatase 72 U/L (46-116); Anion Gap 10 (5-15); BUN/Creatinine Ratio 28.0 (10.0-20.0); Blood Urea Nitrogen 14 mg/dL (9-23); Carbon Dioxide 24 mmol/L (20-31); Chloride 105 mmol/L (98-107); Magnesium 1.7 mg/dL (1.6-2.6); Potassium 3.9 mmol/L (3.5-5.1); Sodium 139 mmol/L (136-145)
[2025-08-03 06:13] LABS: Bilirubin, Total 0.7 mg/dL (0.2-1.0)
[2025-08-03 06:15] LABS: Albumin 2.2 g/dL (3.2-4.8); Calcium 7.6 mg/dL (8.7-10.4); Glucose 126 mg/dL (74-106); Total Protein 4.9 g/dL (5.7-8.2)
--- NOTE | 2025-08-03 13:19 | DVHDS2 ---
Discharge Summary Date of Admission Jul 28, 2025 at 23:23 Date of Discharge: Aug 03, 2025 Labs/Diagnostic Data: Laboratory Results Test 08/03/25 11:24 08/03/25 05:13 08/02/25 12:57 08/02/25 08:58 POC Glucose 116 mg/dl (70-106) White Blood Count 7.8 10^3/uL (4.4-10.8) Red Blood Count 2.89 10^6/uL (4.0-5.20) Hemoglobin 9.2 g/dL (12.2-16.2) Hematocrit 27.3 % (36.0-46.0) Mean Corpuscular Volume 94.6 fL (80.0-100.0) Mean Corpuscular Hemoglobin 31.9 pg (28.0-32.0) Mean Corpuscular Hemoglobin Concent 33.8 g/dL (32.0-36.0) Red Cell Distribution Width 16.2 % (11.8-14.3) Platelet Count 550 10^3/uL (140-450) Mean Platelet Volume 7.3 fL (6.9-10.8) Neutrophils (%) (Auto) 80.6 % (37.0-80.0) Lymphocytes (%) (Auto) 4.0 % (10.0-50.0) Monocytes (%) (Auto) 12.7 % (0.0-12.0) Eosinophils (%) (Auto) 2.5 % (0.0-7.0) Basophils (%) (Auto) 0.2 % (0.0-2.0) Neutrophils # (Auto) 6.3 10 ^3/uL (1.6-8.6) Lymphocytes # (Auto) 0.3 10 ^3/uL (0.4-5.4) Monocytes # (Auto) 1.0 10 ^3/uL (0-1.3) Eosinophils # (Auto) 0.2 10 ^3/uL (0-0.8) Basophils # (Auto) 0 10 ^3/uL (0-0.2) Nucleated Red Blood Cells 0.1 % Sodium Level 139 mmol/L (136-145) Potassium Level 3.9 mmol/L (3.5-5.1) Chloride Level 105 mmol/L (98-107) Carbon Dioxide Level 24 mmol/L (20-31) Anion Gap 10 (5-15) Blood Urea Nitrogen 14 mg/dL (9-23) Creatinine 0.50 mg/dL (0.550-1.02) Glomerular Filtration Rate Calc 92 mL/min (>90) BUN/Creatinine Ratio 28.0 (10.0-20.0) Serum Glucose 126 mg/dL (74-106) Calcium Level 7.6 mg/dL (8.7-10.4) Phosphorus Level 4.4 mg/dL (2.4-5.1) Magnesium Level 1.7 mg/dL (1.6-2.6) Total Bilirubin 0.7 mg/dL (0.2-1.0) Aspartate Amino Transferase (AST) 65 U/L (13-40) Alanine Aminotransferase (ALT) 25 U/L (7-40) Alkaline Phosphatase 72 U/L (46-116) Total Protein 4.9 g/dL (5.7-8.2) Albumin 2.2 g/dL (3.2-4.8) Vancomycin Level Trough 17.2 ug/mL (5-10) Triglycerides Level 93 mg/dL (< 150) Test 07/31/25 05:31 07/30/25 06:22 07/29/25 16:21 07/29/25 04:54 Iron Level 37 ug/dL (50-170) Total Iron Binding Capacity 197 ug/dL (250-425) Percent Iron Saturation 18.8 % (15-50) Random Vancomycin Level 13.0 ug/mL (5-10) Influenza Type A Antigen Negative (Negative) Influenza Type B Antigen Negative (Negative) SARS-CoV-2 Antigen (Rapid) Negative (NEGATIVE) Urine Color Yellow (Yellow) Urine Clarity Turbid (Clear) Urine pH 5.5 (5.0-9.0) Urine Specific [place] 1.025 (1.001-1.035) Urine Protein 1+ (Negative) Urine Ketones 1+ (Negative) Urine Blood 3+ /uL (Negative) Urine Nitrite Negative (Negative) Urine Bilirubin Negative (Negative) Urine Urobilinogen Normal mg/dL (Negative) Urine Leukocyte Esterase Negative /uL (Negative) Urine RBC 181 /hpf (0 - 4) Urine Microscopic WBC 9 /HPF (0-5) Urine Squamous Epithelial Cells None seen /hpf (<5) Urine Bacteria None seen /hpf (None Seen) Urine Hyaline Casts Few /lpf (0 - 2) Urine Mucus Few (None Seen) Urine Glucose Normal mg/dL (Normal) Test 07/28/25 19:44 Prothrombin Time 10.9 sec (9.3-11.8) Prothrombin Time INR 1.03 (0.9-1.15) Activated Partial Thromboplast Time 33.7 SEC (24.5-34.5) Other Laboratory Tests 08/03/25 05:13 Brief Hx & Hospital Course: Patient is an 84-year-old female with past medical history of atrial fibrillation, who presented due to failure to thrive at her senior care facility with decreased p.o. intake. Patient was recently admitted for right hip fracture which she underwent ORIF successfully. During that hospitalization, patient had an acute CVA. Stroke alert was called at the time but patient was not a tPA candidate due to timeline proximity of hip fracture surgery. Patient was also not cleared by orthopedic surgery to resume Eliquis prior to the 48-hour pretty given her surgery. Patient at the time was evaluated by neurology and was recommended that she be discharged on aspirin, Eliquis and atorvastatin. Patient was discharged to senior care facility for further physical therapy. At the time she was noted to have left-sided deficits with associated weakness with right-sided weakness from her hip surgery. Patient returned a few days later due to failure to thrive and decreased p.o. intake with worsening confusion. Patient was started on IV fluids. Family discussion was had for PEG tube placement but this was declined. Family ultimately requested hospice evaluation. Neurology reevaluated the patient and was in agreement that patient was hospice appropriate. Patient was unable to work with physical therapy given right-sided pain and left-sided deficits and remained bedbound. Her mental status waxed and waned but she continued to not tolerate any p.o. She was treated for multifocal pneumonia with IV antibiotics. She completed a sufficient course in the hospital and this was discontinued on discharge. She was also treated with Lovenox 1 mg/kg SQ twice daily for atrial fibrillation and CVA risk reduction. Patient was ultimately discharged on hospice and placed in facility. Family was in agreement with the plan. Overall, patient has very poor prognosis. Condition at Discharge: Poor Final Diagnosis/Problems List CVA Secondary Diagnosis: Failure to Thrive Atrial Fibrillation Multifocal Pneumonia Discharge Disposition: Hospice- Medical Facility Discharge Instruct/Medications Diet: See Comment Diet comment: NPO Activity: Bed rest Scheduled Apixaban Base (Eliquis), 2.5 MG PO BID Atorvastatin Calcium (Lipitor), 1 TAB PO DAILY Metoprolol Tartrate (Lopressor), 50 MG PO BID Discharge Statement: "Patient was advised to return to the ER or call 911 if any headaches, dizziness, shortness of breath, chest pain, abdominal pain, bleeding, fevers, or worsening of medical condition. Patient was counseled about treatment plan, medications, possible side effects, patientverbalized understanding. All questions were answered to the best of my ability. This discharge took greater then 30 minutes in planning, reviewing documentation, counseling the patient, and discussing with other team members." ASSESSMENT ASSESSMENT Assessment OLEGARIOA ALBERTO TATE DO Aug 03, 2025 13:19
[2025-08-03] MEDS: ENOXAPARIN SOD 60 MG/0.6 ML SYRINGE SC SCH (14:58)
--- NOTE | 2025-08-03 23:28 | DVHPN2 ---
Progress Note - Dictate Date Seen: Aug 03, 2025 Has the PT tested + for MRSA If YES, has PT been informed?: Yes Medical Necessity Reason Pt with a Central, PICC or Fol: No The following are medically ne: Ogden Catheter Reason for ogden catheter: Strict I&O Subjective Patient was seen and evaluated in follow up. Hospice placement is pending. HGB 9.2, HCT 27.3, CA 7.6, AST 65. Telemetry reviewed. vital signs Vital Sign Date Time Temp Pulse Resp B/P (MAP) Pulse Ox O2 Delivery O2 Flow Rate FiO2 08/03/25 09:35 69 17 100 08/03/25 09:28 Room Air* 0 21 08/03/25 09:00 97.7 131/59 (83) 97.7 Total Intake and Output 08/02/25 08/02/25 08/03/25 15:00 23:00 07:00 Intake Total 0 ml Output Total 650 ml 300 ml Balance -650 ml -300 ml medications Current Medications Medications Dose Ordered Sig/Juan Route Start Time Stop Time Status Last Admin Dose Admin Nitroglycerin 0.4 mg Q5MINP PRN SL 07/28/25 23:30 Morphine Sulfate 2 mg Q30M PRN IV 07/28/25 23:30 Hydralazine HCl 10 mg Q4HP PRN IV 07/29/25 05:45 07/30/25 00:50 10 MG Piperacillin Sod/ Tazobactam Sod 100 ml @ 25 mls/hr Q8H IV 07/29/25 09:00 08/03/25 01:03 25 MLS/HR Lorazepam 1 mg ONCE PRN IV 07/29/25 10:15 Amino Acids 0 ml @ 0 mls/hr PER PHARMACY IV 07/29/25 14:00 Diagnostic Test (Pha) 1 strip Q6HR 07/30/25 00:00 08/03/25 12:00 1 STRIP Insulin Human Regular FOLLOW SLIDING SCALE Q6HR SC 07/30/25 00:00 08/03/25 06:12 2 UNITS Dextrose 50 ml UD IV 07/29/25 22:00 Albuterol 2.5 mg Q4HWA NEB 07/29/25 22:00 08/03/25 09:28 2.5 MG Potassium Chloride 100 ml @ 50 mls/hr Q2H IV 07/30/25 12:45 07/30/25 16:44 Cancel Amino Acids/ Electrolytes/ Dextrose 1,000 ml @ 41 mls/hr DAILY@2200 IV 07/30/25 22:00 08/02/25 21:45 41 MLS/HR Morphine Sulfate 2 mg Q4HPRN PRN IV 08/01/25 13:30 08/01/25 23:13 2 MG Enoxaparin Sodium 50 mg Q12HR SC 08/03/25 11:00 objective GENERAL: Altered, elderly, frail appearing EYES: PERRL, EOMI. Anicteric. HENT: Moist mucous membranes. LUNGS: Clear to auscultation bilaterally. CARDIOVASCULAR: Regular rate and rhythm. ABDOMEN: Soft, nontender and nondistended. EXTREMITIES: No edema. SKIN: Warm, dry. laboratory and microbiology Laboratory Tests 08/03/25 05:13 Test 08/03/25 05:13 Range/Units Serum Glucose 126 H 74-106 mg/dL Problem List Multifocal CVA. Altered mental status. Dysphagia. Hypernatremia. Dehydration. Left lower lobe opacity. Paroxysmal atrial fibrillation. Assessment/Plan Continued all current supportive medical care. IV Hydralazine for SBP >160. Morphine for pain management. Nitro SL. IV antibiotics as ordered. Additional plan as per the hospital course. Dietary Evaluation Review Recommendations by RD: Dietary education by RD Comments: Nutrition Recommendation: 1) PPN to supply 0857-7965 kcal & 49-61 gm protein per day 2) If PEG tube is placed: a. Continuous feeding - Jevity 1.2Cal @ 45ml/hr x 24hr. Water flush 110ml if allowed, adjust PRN Start @ 20ml/hr, increase 10ml/hr Q8H until goal is reached. b. Bolus feeding - Jevity 1.2Cal 270ml x 4. Water flush 110ml if allowed, adjust PRN Start @ 100ml, increase 100ml Q8H until goal is reached. TF @ goal volume provides 1296 kcal (100% energy needs), protein 60gm (100% protein needs), and 1312ml water (including flush) 3) Monitor NPO status, lab values, weight trend, and I/O Expected Outcomes/Goals: Intake to meet >75% estimated needs Lab values to improve Fu 2-3 days Body Fat Depletion (Severe): Mod to Severe Depletion Muscle Mass (Severe): Mod to Severe Depletion Protein Calorie Malnutrition: Severe Plan discussed with: Patient Respiratory Effort: Short of Breath Heart Sounds: S1 & S2 Breath sounds: Crackles, Diminished KHADAR MAY MD Aug 03, 2025 13:45
== END 2025-08-03 18:58 | disposition hospice, inpatient (51) | DRG 64 ==
LOC: EDBD 18:49 → ER 18:49 → OVERFLOW 23:23 → TELE-EAST 07-29 16:47
PROVIDERS: ADMIT Internal Medicine; ATTEND Internal Medicine
DX: I63.9 Cerebral infarction, unspecified (principal); E43 Unspecified severe protein-calorie malnutrition; J18.9 Pneumonia, unspecified organism; E87.0 Hyperosmolality and hypernatremia; G81.94 Hemiplegia, unspecified affecting left nondominant side; Z51.5 Encounter for palliative care; Z66 Do not resuscitate; E83.39 Other disorders of phosphorus metabolism; D63.8 Anemia in other chronic diseases classified elsewhere; F03.90 Unspecified dementia, unspecified severity, without behavioral disturbance, psychotic disturbance, mood disturbance, and anxiety; I11.0 Hypertensive heart disease with heart failure; R41.4 Neurologic neglect syndrome; Z68.1 Body mass index [BMI] 19.9 or less, adult; R13.10 Dysphagia, unspecified; E86.0 Dehydration; R62.7 Adult failure to thrive; Z20.822 Contact with and (suspected) exposure to COVID-19; I48.0 Paroxysmal atrial fibrillation; H53.462 Homonymous bilateral field defects, left side; E87.6 Hypokalemia; E78.5 Hyperlipidemia, unspecified; I25.10 Atherosclerotic heart disease of native coronary artery without angina pectoris; Z74.01 Bed confinement status; Z86.73 Personal history of transient ischemic attack (TIA), and cerebral infarction without residual deficits; Z87.01 Personal history of pneumonia (recurrent); Z79.899 Other long term (current) drug therapy
CPT/HCPCS: 36415; 70450; 70551; 71045; 71250; 80048; 80053; 80202; 81001; 82962; 83540; 83550; 83735; 84100; 84478; 85025; 85610; 85730; 87081; 87426; 87804; 94640; 96365; 97163; 99291; G0378; J1815; J2003; J2543; J3480; J7060